=== PATIENT | female | born 1945 | race Caucasian/White ===

== ENCOUNTER 2017-01-13 01:14 | Inpatient (IN) ==
[2017-01-13] MEDS ORDERED: Aspirin 81 MG TAB.CHEW PO ONE (01:24)
[2017-01-13] MEDS ORDERED: *HR* Heparin 5,000 UNIT/ML VIAL IVP PRN ×2 (01:24)
[2017-01-13] MEDS ORDERED: *HR* Heparin 5,000 UNIT/ML VIAL IVP ONE (01:24)
[2017-01-13] MEDS ORDERED: Heparin 25,000 UNIT/500 ML D5W 25,000 UNIT/500 ML MLS IVC SCH (01:30)
[2017-01-13] MEDS: Nitroglycerin 0.4 MG TAB.SUBL SL ONE ×3 (01:39→01:57)
--- NOTE | 2017-01-13 01:39 | Emergency Department Note ---
Disposition Clinical Impression: STEMI (ST elevation myocardial infarction) Qualifiers: Involved coronary artery: unspecified coronary artery Qualified Code(s): I21.3 - ST elevation (STEMI) myocardial infarction of unspecified site Disposition: Admitted As Inpatient Condition: Critical Chest Pain HPI - General Chief Complaint: ED Chest Pain Stated Complaint: chest pain Time Seen by Provider: 01/13/17 01:24 Source: patient Mode of arrival: ambulatory Limitations: no limitations Vital Signs Reviewed: Yes Nursing Notes Reviewed: Yes - History of Present Illness HPI Narrative: Patient presents for evaluation of chest pain. Patient's chest pain started in our prior to arrival. Substernal in nature. Patient describes it as a "pain". Patient has not had similar pain in the past. Patient states she has diabetes but no previous cardiac history. EKG shows ST elevations in lead 3 and aVF. Diffuse depressions in 1 aVL V1 and V2 V3 V4 V5 and V6. No previous EKG for comparison. STEMI alert called. Deflector Operator activated. Severity scale (1-10): 10 - Related Data Home Medications Medication Instructions Recorded Confirmed Atorvastatin 01/10/17 Allergies Allergy/AdvReac Type Severity Reaction Status Date / Time codeine Allergy Rash Verified 01/10/17 12:48 gabapentin Allergy Anaphylaxis Verified 01/10/17 12:48 Review of Systems: CONSTITUTIONAL: No weight loss, fever, chills, weakness or fatigue. HEENT: Eyes: No visual changes. Ears, Nose, Throat: No hearing loss, difficulty talking or unable to swallow. SKIN: No rash or itching. CARDIOVASCULAR: chest pain RESPIRATORY: No shortness of breath, cough or sputum. GASTROINTESTINAL: No anorexia, nausea, vomiting or diarrhea. No abdominal pain or blood. GENITOURINARY: No burning on urination or hematuria. NEUROLOGICAL: No headache, dizziness, syncope, paralysis, ataxia, numbness or tingling in the extremities. No change in bowel or bladder control. MUSCULOSKELETAL: No muscle pain, back pain, joint pain or stiffness. 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 - Social History Smoking Status: 2nd Hand Smoke Exposure Alcohol use: Reports: none Drug use: Reports: none Physical Exam General appearance:uncomfortable 2/2 pain Eyes: anicteric sclerae, moist conjunctivae; PERRL HENT: Atraumatic; oropharynx clear with moist mucous membranes and no mucosal ulcerations Neck: Normal inspection; Trachea midline; FROM, supple Lungs: CTA, with normal respiratory effort and no intercostal retractions CV: RRR, no MRGs Abdomen: Soft, non-tender; no rebound or gaurding Extremities: No peripheral edema or extremity lymphadenopathy Skin: Normal temperature; no rash, ulcers or lesions Psych: Appropriate mood and affect Neuro: alert and oriented to person, place and time - General General appearance: alert Course - Reevaluation(s) Reevaluation #1: Patient's pain did not improve with initial nitroglycerin. Patient continues to be hypertensive. - Consultations Consultation #1: Dr. Yip was paged. After approximately 20 minutes they called his cell phone and he was able to call us back. Pt taken to mechanical shop laborer. Berlinta given. Vital Signs Temperature 97.2 F L 01/13/17 01:18 Pulse Rate 84 01/13/17 01:18 Respiratory Rate 20 01/13/17 01:18 Blood Pressure 190/90 01/13/17 01:18 O2 Sat by Pulse Oximetry 92 01/13/17 01:18 Temperature 97.2 F L 01/13/17 01:25 Pulse Rate 88 01/13/17 01:53 Respiratory Rate 20 01/13/17 02:22 Blood Pressure 174/79 01/13/17 02:22 O2 Sat by Pulse Oximetry 96 01/13/17 01:53 Oxygen Delivery Oxygen Delivery Nasal Cannula Chest Pain - Medical Records Medical records reviewed: Yes I reviewed the patient's medical records. - Lab Data Lab results reviewed: Yes I reviewed the patient's lab results. Result diagrams: 01/13/17 01:25 01/13/17 01:25 Lab Results 01/13/17 01/13/17 01/13/17 Range/Units 01:25 01:25 01:25 WBC 10.1 (4.3-11.1) K/mcL RBC 3.64 L (3.82-4.97) M/mcL Hgb 11.2 L (11.5-15.4) g/dL Hct 33.8 L (35.3-44.9) % MCV 92.9 (83.0-100.0) fL MCH 30.8 (28.0-33.3) pg MCHC 33.1 (31.6-35.5) g/dL RDW 12.2 (11.5-14.5) % Plt Count 283 (140-400) K/mcL MPV 10.4 (9.4-12.4) fL Immature Gran % 0.4 (0-4) % Seg Neutrophils % 42.2 % Lymphocytes % 45.9 % Monocytes % 8.3 % Eosinophils % 2.7 % Basophils % 0.5 % Neutrophils # 4.3 (1.6-8.9) K/mcL Lymphocytes # 4.6 (0.6-4.6) K/mcL Monocytes # 0.8 (0.0-1.3) K/mcL Eosinophils # 0.3 (0.0-0.6) K/mcL Basophils # 0.1 (0.0-0.2) K/mcL PT 11.3 (9.4-12.1) Seconds INR 1.1 APTT 27.1 (26.0-36.0) Seconds Sodium 137 (136-145) mEq/L Potassium 3.8 (3.5-4.5) mEq/L Chloride 102 (98-109) mEq/L Carbon Dioxide 23 (19-29) mEq/L BUN 19 (7-20) mg/dL Creatinine 1.09 (0.57-1.11) mg/dL Est GFR ( Amer) > 60 (> 60) Est GFR (Non-Af Amer) 50 L (> 60) BUN/Creatinine Ratio 17 (6-26) Glucose 157 H (70-99) mg/dL Calculated Osmolality 290 (280-300) Calcium 9.1 (8.6-10.8) mg/dL Troponin I (0-0.03) ng/mL 01/13/17 Range/Units 01:25 WBC (4.3-11.1) K/mcL RBC (3.82-4.97) M/mcL Hgb (11.5-15.4) g/dL Hct (35.3-44.9) % MCV (83.0-100.0) fL MCH (28.0-33.3) pg MCHC (31.6-35.5) g/dL RDW (11.5-14.5) % Plt Count (140-400) K/mcL MPV (9.4-12.4) fL Immature Gran % (0-4) % Seg Neutrophils % % Lymphocytes % % Monocytes % % Eosinophils % % Basophils % % Neutrophils # (1.6-8.9) K/mcL Lymphocytes # (0.6-4.6) K/mcL Monocytes # (0.0-1.3) K/mcL Eosinophils # (0.0-0.6) K/mcL Basophils # (0.0-0.2) K/mcL PT (9.4-12.1) Seconds INR APTT (26.0-36.0) Seconds Sodium (136-145) mEq/L Potassium (3.5-4.5) mEq/L Chloride (98-109) mEq/L Carbon Dioxide (19-29) mEq/L BUN (7-20) mg/dL Creatinine (0.57-1.11) mg/dL Est GFR ( Amer) (> 60) Est GFR (Non-Af Amer) (> 60) BUN/Creatinine Ratio (6-26) Glucose (70-99) mg/dL Calculated Osmolality (280-300) Calcium (8.6-10.8) mg/dL Troponin I 0.10 H* (0-0.03) ng/mL - Radiology Data Radiology results reviewed: Yes I reviewed the patient's radiology results. - EKG Data EKG attestation: Yes I reviewed and interpreted this EKG. EKG results narrative: EKG shows ST elevations in lead 3 and aVF. Depressions throughout the precordial leads as well as 1 and aVL. No previous EKG for comparison. Critical Care Time Critical Care Time: Yes Total Critical Care Time: 35 Attestation: Separate of other billable procedures Attestation Statement - Attestation Attestation: I examined this patient and my medical decision-making was reviewed with the Resident Physician, Dr. Thomas. I agree with the documented findings, disposition and treatment plan as described except to the extent set forth below. Patient is a 71-year-old white female type I diabetic who presents to the emergency department today with a one-hour history of substernal chest pain. Patient denies any shortness of breath, no diaphoresis, no nausea vomiting, no abdominal pain or back pain. Patient had an EKG from triage and was brought directly to me for evaluation due to concerns with EKG changes. Patient's initial EKG shows an inferior STEMI with reciprocal changes. I asked the patient be brought back directly to bed and a STEMI alert was called. I agree with patient's physical exam findings as documented. Patient was hypertensive on arrival. Patient was given aspirin nitroglycerin heparin and Brilinta following review of chest x-ray. Chest x-ray showed no acute process. We did not hear back from the publicity agent in time after 30 minutes from the time the STEMI was called. EKG was transferred to the automatic riveting machine operator and he agreed to come in for emergent heart catheter. Patient remained hemodynamically stable in the emergency department until transfer to the catheter lab.
[2017-01-13 01:41] LABS: Basophils # 0.1 K/mcL (0.0-0.2); Basophils % 0.5 %; Eosinophils # 0.3 K/mcL (0.0-0.6); Eosinophils % 2.7 %; Hematocrit 33.8 % (35.3-44.9); Hemoglobin 11.2 g/dL (11.5-15.4); Immature Granulocytes % 0.4 % (0-4); Lymphocytes # 4.6 K/mcL (0.6-4.6); Lymphocytes % 45.9 %; Mean Corpuscular HGB Conc 33.1 g/dL (31.6-35.5); Mean Corpuscular Hemoglobin 30.8 pg (28.0-33.3); Mean Corpuscular Volume 92.9 fL (83.0-100.0); Mean Platelet Volume 10.4 fL (9.4-12.4); Monocytes # 0.8 K/mcL (0.0-1.3); Monocytes % 8.3 %; Neutrophils # 4.3 K/mcL (1.6-8.9); Platelet Count 283 K/mcL (140-400); Red Blood Count 3.64 M/mcL (3.82-4.97); Red Cell Distribution Width 12.2 % (11.5-14.5); Segmented Neutrophils % 42.2 %
[2017-01-13 01:47] LABS: INR 1.1; Prothrombin Time 11.3 Seconds (9.4-12.1)
[2017-01-13] MEDS ORDERED: Verapamil 5 MG/2 ML VIAL ONE (01:47)
[2017-01-13] MEDS ORDERED: Heparin 1,000 UNITS/500 mL NS 500 ML ONE (01:48)
[2017-01-13] MEDS ORDERED: *HR* Heparin 10,000 UNIT/10 ML VIAL ONE (01:48)
[2017-01-13] MEDS ORDERED: Nitroglycerin 1,000 MCG/10 ML VIAL IV ONE (01:48)
[2017-01-13] MEDS ORDERED: 0.9 % Sodium Chloride 2,000 ML ONE (01:48)
[2017-01-13 01:50] LABS: Activated Partial Thrombo Time 27.1 Seconds (26.0-36.0)
[2017-01-13 01:53] LABS: BUN/Creatinine Ratio 17 (6-26); Blood Urea Nitrogen 19 mg/dL (7-20); Calcium 9.1 mg/dL (8.6-10.8); Carbon Dioxide 23 mEq/L (19-29); Chloride 102 mEq/L (98-109); Glucose 157 mg/dL (70-99); Osmolality,Calculated 290 (280-300); Potassium 3.8 mEq/L (3.5-4.5); Sodium 137 mEq/L (136-145); eGFR For African Americans > 60 (> 60); eGFR For Non-African Americans 50 (> 60)
[2017-01-13] MEDS ORDERED: *HR* Ticagrelor 90 MG TABLET PO ONE (01:57)
[2017-01-13] MEDS ORDERED: Nitroglycerin 25 MG/250 ML INFUS..BTL IVC SCH (02:00)
[2017-01-13] MEDS: *HR* Ticagrelor 90 MG TABLET ONE ×2 (02:01→02:20)
[2017-01-13] MEDS ORDERED: *HR* FentaNYL (PF) 100 MCG/2 ML VIAL ONE (02:18)
[2017-01-13] MEDS ORDERED: *HR* Midazolam HCl 2 MG/2 ML VIAL ONE (02:18)
[2017-01-13] MEDS ORDERED: Tirofiban 5 MG/100ML 5 MG/100 ML BAG IV ONE (02:48)
[2017-01-13] MEDS ORDERED: 0.9 % Sodium Chloride 1,000 ML ONE (03:19)
--- NOTE | 2017-01-13 03:19 | Pre-Sedation Evaluation ---
Pre-sedation evaluation - Pre-sedation checklist Date of procedure: 01/13/17 Procedure: [facility] Recent Vitals: Last Vital Signs Temp 97.2 F L 01/13/17 01:25 Pulse 88 01/13/17 01:53 Resp 20 01/13/17 02:22 BP 174/79 01/13/17 02:22 Pulse Ox 96 01/13/17 01:53 H&P (including ROS) documented in medical record: Yes Previous reaction to sedatives/anesthetics: No Dietary Status: NPO after Midnight Airway Assessment: Patient can open mouth completely, TMJ function normal Possible difficult airway: No ASA Classification *see protocol: CLASS II-Mild systemic disease, E-EMERGENCY- Add to any of the above to indicate emergent Plan of Care: Pt appropriate candidate for procedure/moderate/conscious sedation , Risks/benefits of procedure/sedation discussed w/ patient/family
[2017-01-13] MEDS ORDERED: *HR* OxyCODONE/APAP 5/325 TABLET PO PRN (03:22)
[2017-01-13] MEDS ORDERED: *HR* HYDROcodone/Acet 5/325 mg TABLET PO PRN (03:22)
--- NOTE | 2017-01-13 03:26 | Cardiology History & Physical ---
Date of Encounter: 01/14/17 Time of Encounter: 02:00 Assessment and Plan (1) STEMI (ST elevation myocardial infarction) Current Visit: Yes Status: Acute On initial presentation: ongoing symptoms with inferior current of injury. Emergent LHC, EF assessment. Aspirin, brilinta, heparin given. Labs reviewed/ ekg interpreted. Guarded prognosis. Critical care time >1 hour Post PCI: S/p emergent LHC and PCI to her ostial and mid RCA. There is a 70-80% stenosis in her mLAD. Staged PCI is recommended. this is being set-up by Dr. Yip for early next week. There was no complication from her procedure. Importance of DAPT with asa and brilinta uninterrupted for minimum of one year reviewed with patient and he voiced understanding. Continue statin and bb. No complication with right femoral access site. Phase one cardiac rehab ordered. Imdur added for chest pain. Now chest pain free. Patient reported to have mild chest discomfort last night. If she has recurrent chest pain consider PCI of the LAD prior to discharge. TTE shows preserved EF. No significant valvular disease. Qualifiers: Involved coronary artery: right coronary artery Qualified Code(s): I21.11 - ST elevation (STEMI) myocardial infarction involving right coronary artery (2) Hypertension Current Visit: Yes Status: Acute B/p uncontrolled. B/p 200/100 on admit. Now improved. Continue lisinopril and carvedilol. low sodium diet. Qualifiers: Hypertension type: essential hypertension Qualified Code(s): I10 - Essential (primary) hypertension (3) Diabetes mellitus, type II Current Visit: Yes Status: Acute NIDDM. On SSI while here. Restart glyburide. Qualifiers: Diabetes mellitus complication status: without complication Diabetes mellitus welfare interviewer insulin use: without welfare interviewer use Qualified Code(s): E11.9 - Type 2 diabetes mellitus without complications History of Present Illness HPI: Ms. Valverde is a 71 year old diabetic female presents with 1 hour history of severe retrosternal chest pain without radiation associated with mild dyspnea. It was minimally relieved with NTG/aspirin. She reported to ED with inferior STEMI and screedman/laborer was activated. Past Med Surg Social Fam HX - Past Medical History Medical history: non-contributory Psychiatric history: anxiety - Past Surgical History Surgical History: no surgical history - Social History Smoking Status: 2nd Hand Smoke Exposure Smokeless Tobacco Status: No Alcohol use: none Drug use: none Medications and Allergies Insulin Glargine,Hum.rec.anlog [Lantus Solostar] 5 - 10 unit SQ HS 01/13/17 [ History] Oxycodone HCl/Acetaminophen [Endocet 10-325 mg Tablet] 1 tab PO Q8H PRN [History] glyBURIDE [GlyBURIDE] 5 mg PO DAILY 01/13/17 [History] 3 Allergy/AdvReac Type Severity Reaction Status Date / Time codeine Allergy Rash Verified 01/10/17 12:48 gabapentin Allergy Anaphylaxis Verified 01/10/17 12:48 All Systems Review: A 10-system review of systems was performed and is negative for pertinent findings except as documented above in the HPI. - Constitutional Constitutional: no chills, no fever(s) - EENT Eyes: no blurred vision, no loss of vision Nose, mouth and throat: no bleeding gums, no epistaxis - Cardiovascular Cardiovascular: chest pain at rest, chest pain with exertion - Respiratory Respiratory: dyspnea, no hemoptysis - Gastrointestinal Gastrointestinal: no hematemesis, no hematochezia - Genitourinary Genitourinary: no hematuria, no nocturia - Musculoskeletal Musculoskeletal: no arthralgias, no back pain - Integumentary Integumentary: no erythema, no unusual bruising - Neurological Neurological: no syncope, no tingling - Psychiatric Psychiatric: no hallucinations, no panic attacks - Hematological/Lymphatic Hematologic/Lymphatic: no easy bleeding, no easy bruising Physical Examination General: Conversant, Other (distressed) HEENT: Atraumatic, Normocephaly Neck: No JVD Cardiac: Reg Rate and Rhythm Lungs: Normal Breath Sounds Neuro: Alert and responsive Abdomen: Soft Skin: No rashes noted on visualized skin Musculoskeletal: No Chest Wall Tenderness Extremities: No Edema Results 01/14/17 08:12 01/14/17 08:12 - EKG Interpretation EKG results cardiology: personally reviewed, sinus rhythm (inferior current of injury)
[2017-01-13] MEDS ORDERED: Tirofiban 12.5 MG/250ML 12.5 MG/250 ML BAG IVC SCH (03:30)
[2017-01-13] MEDS ORDERED: D5% in Water 1,000 ML IVC PRN (03:34)
[2017-01-13] MEDS ORDERED: *HR* Dextrose 50 % in Water (Syg) 50 ML SYRINGE IVP PRN (03:34)
[2017-01-13] MEDS ORDERED: Dextrose Gel 15 GM PO PRN ×2 (03:34)
--- NOTE | 2017-01-13 03:51 | Invasive Diagnostic Lab Proc ---
Name: Bella Valverde Date of Study: 01/13/2017 Date: 1945 Ht: 64.2in Medical Record#: [id number] Age: 71 Wt: 143.96lb Gender: Female BSA: 1.7 Order #: [id number] BMI: 24.58 Physicians Procedure Physician: Wallace Yip MD, [facility] Referring MD: Referring MD: Staff Name Position Time In Joshua Sparks RN Face Worker 02:14 AM Kelsy Kohli RN Monitor 02:15 AM Eduin Newby RT (R) Scrub 02:15 AM Indications Indication STEMI Procedures Performed Procedure L HRT ARTERY/VENTRICLE ANGIO PRQ CARD REVASC IA 1 VSL Pre-Procedure Checklist Informed consent is complete signed and on chart. H&P is on chart. ID band is on and ID verified with patient. Patient NPO for procedure The procedure was described for the patient and questions were answered. Blood Pressure: 223/88 ECG is on chart. Rhythm: NSR w/ st elevation Plan of Care Patient will tolerate the procedure without complications. Adequate level of comfort will be maintained. Hemodynamics will remain stable Patient will recover from procedure without complications. Respiratory function will be maintained. Cardiac rhythm will remain stable. Patient temperature will be maintained. Patient and/or family have verbalized understanding of the procedure. Patient Education Chief Complaint/Reason for Test: Cardiac Cath Developmental Category: Geriatric (65+ years) Developmentally Appropriate for Age: Yes Learning Barriers: None Education Needs: Procedure Education Method: Verbal Information Taught: Cardiac Cath Educational Evaluation: Able to repeat information Intravenous Access Time IV Size Location DC'd Fluid/Drip Rate Units RN 02:01 AM 20g 1 1/4" Patent On Arrival Lt Hand 02:01 AM 18g 1 1/4" Patent On Arrival Rt Antecubital 0.9NaCl 25 ml/hr oJshua Sparks RN Allergies codeine gabapentin Vital Signs Time BP (mmHg) HR (bpm) O2 Sat. RR (bpm) LOC 02:19 AM / % 5 = Fully awake and oriented or at pre-proc level 02:19 AM / % 4 = Oriented but drowsy 02:34 AM / % 4 = Oriented but drowsy 02:50 AM / % 4 = Oriented but drowsy 02:12 AM 223 / 88 104 100 % 18 02:16 AM 228 / 86 87 99 % 14 02:21 AM 188 / 71 92 98 % 10 02:26 AM 180 / 62 83 98 % 11 02:31 AM 145 / 66 82 95 % 12 02:37 AM 166 / 61 76 98 % 10 02:41 AM 169 / 58 73 98 % 10 02:46 AM 155 / 78 77 98 % 13 02:51 AM 154 / 60 72 95 % 12 02:56 AM 150 / 53 66 98 % 10 03:01 AM 149 / 58 67 99 % 11 03:06 AM 156 / 60 69 100 % 11 03:09 AM 162 / 66 72 100 % 12 03:11 AM 164 / 66 73 100 % 15 03:16 AM 153 / 57 76 100 % 9 03:05 AM / % 4 = Oriented but drowsy Procedural Medications Time Medication Dose Units Method Given By 02:17 AM Lidocaine 2% 0.5 ml Subcutaneous Wallace Yip MD, FACC 02:19 AM Oxygen 2 L/min nasal cannula Joshua Sparks RN 02:19 AM Versed 2 mg Intravenous Johsua Sparks RN 02:19 AM Fentanyl 25 mcg Intravenous Joshua Sparks RN 02:20 AM Nitroglycerin 200 mcg Intraarterial Wallace Yip MD 02:20 AM Verapamil 2.5 mg Intraarterial Wallace Yip MD, FACC 02:26 AM Lidocaine 2% 19.5 ml Subcutaneous Wallace Yip MD, FACC 02:07 AM Nitroglycerin 5 mcg/min Intravenous 02:15 AM Nitroglycerin 10 mcg/min Intravenous Joshua Sparks RN 02:46 AM Heparin 3000 units Intravenous Joshua Sparks RN 02:48 AM Aggrastat Bolus: 33 ml Intravenous Joshua Sparks RN 02:48 AM Aggrastat 5mg/100ml 6 ml/hr Intravenous Joshua Sparks RN 03:13 AM Hydralazine 10 mg Intravenous Joshua Sparks RN ASA Classification: CLASS II- Mild systemic disease (i.e. well-controlled diabetes, hypertension, asthma, cigarette smoking) Emergent Procedure: ASA score is assumed Alexis Score Preprocedure Postprocedure Activity 2- Moves 4 extremities sustained head lift Activity 2- Moves 4 extremities sustained head lift Circulation 2- SBP +/= 20 points of pre-anesthetic level Circulation 2- SBP +/= 20 points of pre-anesthetic level Consciousness 2- Awake and alert oriented x 3 Consciousness 2- Awake and alert oriented x 3 O2 Saturation 2- Able to maintain O2 satruation of 92% on room air O2 Saturation 2- Able to maintain O2 satruation of 92% on room air Respiratory 2- Able to deep breathe and cough well Respiratory 2- Able to deep breathe and cough well Total Score 10 Total Score 10 Contrast Agent: Isovue Diagnostic Contrast: 153 ml Total Contrast: 153 ml Fluoro Dose: 1005 mGy Activated Clotting Time Time Seconds to Clot 02:46 AM 187 03:22 AM 266 Procedure Log Time Note Enter By 02:07 AM Pt arrived to paving and surfacing labourer 2 at 02:07 scoates 02:07 AM Patient arrived at 02:07 with Nitroglycerin Intravenous drip @ 5 mcg/min scoates 02:10 AM CathStat 02:10 AM Vitals capture started with the following parameters, Patient=Adult, Interval=5 min, Initial Gdlfjrdv=772 mmHg, Deflation Rate=5 mmHg, Cuff placed on Right Arm 02:12 AM EL=319 bpm, XNWE=291/88 mmhg, VeP1=626.0 %, Resp=18 B/min 02:14 AM Case Delayed No scoates 02:14 AM Hair removed from procedure site in emergency department using clippers. Right wrist and rt groin prepped with Chloraprep by Eduin Newby (R), safety strap applied then patient was draped. Skin intact. scoates 02:14 AM ASA Class CLASS II- Mild systemic disease (i.e. well-controlled diabetes, hypertension, asthma, cigarette smoking) scoates 02:14 AM Patient charges- Angio tray pack, Navilyst 3mm J, Pulse Oximetry and ACIST tubing and transducer scoates 02:15 AM Time: 02:15 Nitroglycerin 10 mcg/min Intravenous Given by Joshua Sparks RN scoates 02:15 AM Joshua Sparks RN Position: Face Worker Time in: 02:14 scoates 02:15 AM Kelsy Kohli RN Position: Monitor Time in: 02:15 scoates 02:15 AM Eduin Newby (R) Position: Scrub Time in: 02:15 scoates 02:15 AM Physician arrived 02:15 scoates 02:15 AM Meet and greet completed scoates 02:15 AM Procedure start 02:15 scoates 02:16 AM HR=87 bpm, IWAR=541/86 mmhg, SpO2=99.0 %, Resp=14 B/min, Comment=sr w/ st elevation 02:16 AM Clinical Presentation: STEMI or equivalent scoates 02:16 AM Time out performed according to hospital policy scoates 02:17 AM Time: 02:17 0.5 ml Lidocaine 2% to right radial Subcutaneous Given by Wallace Yip MD, [facility] scoates 02:18 AM Recorded ECG: HR=91 Condition=Condition 1 02:18 AM Pressure channel 1 zeroed. 02:18 AM Recorded Pressure: Ao, HR=98, Condition=Condition 1 (Aorta) Ao 0/0/0 02:19 AM Time: 02:19 Patient comfortable and pain free: No, pt has 10/10 chest pain scoates 02:19 AM Time: 02:19LOC: 5 = Fully awake and oriented or at pre-proc level scoates 02:19 AM Time: 02:19 Oxygen on at 2 L/min per nasal cannula by Joshua Sparks RN scoates 02:19 AM Time: 02:19 Versed 2 mg Intravenous Given by Joshua Sparks RN scoates 02:20 AM Time: 02:19 Fentanyl 25 mcg Intravenous Given by Joshua Sparks RN scoates 02:20 AM Access obtained by percutaneous puncture. 6Fr 11cm Terumo [place] sheath placed in right Radial artery. [id number] scoates 02:20 AM Time: 02:20 Patient given , 200 mcg Nitroglycerin, and 2.5 mg Verapamil Intraarterial by Wallace Yip MD, [facility] scoates 02:20 AM 6Fr IM Runway guide catheter was used to cannulate the PCI vessel successfully. reused? No scoates 02:21 AM HR=92 bpm, EIFI=654/71 mmhg, SpO2=98.0 %, Resp=10 B/min, Comment=sr 02:22 AM Guide catheter removed intact. scoates 02:22 AM 6Fr AR1 Runway guide catheter was used to cannulate the PCI vessel successfully. reused? No scoates 02:24 AM Recorded Pressure: Ao, HR=85, Condition=Condition 1 (Aorta) Ao 153/59/98 02:25 AM RCA angiography performed in multiple views. scoates 02:25 AM .014 [place] 190cm guide wire across target lesion- successful. reused? No scoates 02:26 AM HR=83 bpm, MPVW=830/62 mmhg, SpO2=98.0 %, Resp=11 B/min, Comment=sr 02:26 AM wire and guide wire removed intact scoates 02:27 AM Pressure channel 1 zeroed. 02:27 AM Patient is noted to have difficult anatomy, per . Will access groin now scoates 02: AM Time: 02: 19.5 ml Lidocaine 2% to right groin Subcutaneous Given by Wallace Yip MD, [facility] scoates 02:28 AM Access obtained by percutaneous puncture. 6Fr 10cm Terumo [place] sheath placed in right Femoral artery. [id number] scoates 02:29 AM 6Fr KR4H Runway guide catheter was used to cannulate the PCI vessel successfully. reused? No scoates 02:31 AM Recorded Pressure: Ao, HR=80, Condition=Condition 1 (Aorta) Ao 170/73/112 02:31 AM HR=82 bpm, MPIQ=293/66 mmhg, SpO2=95.0 %, Resp=12 B/min, Comment=sr 02:32 AM Recorded Pressure: Ao, HR=80, Condition=Condition 1 (Aorta) Ao 15/14/14 02:32 AM Patient having wrist pain at this time scoates 02:33 AM Guide catheter removed intact. scoates 02:33 AM Recorded Pressure: Ao, HR=72, Condition=Condition 1 (Aorta) Ao 143/78/106 02:33 AM 5Fr FL 4 catheter inserted over the wire [facility] scoates 02:33 AM LCA angiography performed in multiple views. scoates 02:34 AM Recorded Pressure: Ao, HR=72, Condition=Condition 1 (Aorta) Ao 142/77/106 02:34 AM Time: 02:19LOC: 4 = Oriented but drowsy scoates 02:34 AM Time: 02:19 Patient comfortable and pain free: No patient has chest pain and rt wrist pain scoates 02:35 AM Catheter removed scoates 02:35 AM 6Fr JR 4 Cordis guide catheter was used to cannulate the PCI vessel successfully. reused? No scoates 02:36 AM [place] wire reinserted scoates 02:37 AM HR=76 bpm, IOUL=953/61 mmhg, SpO2=98.0 %, Resp=10 B/min, Comment=sr 02:40 AM unable to engage artery scoates 02:40 AM marvel wire removed intact scoates 02:40 AM Guide catheter removed intact. scoates 02:40 AM 6Fr 3DRC Silex Bright-Tip guide catheter was used to cannulate the PCI vessel successfully. reused? No scoates 02:41 AM HR=73 bpm, ZUXC=279/58 mmhg, SpO2=98.0 %, Resp=10 B/min, Comment=sr 02:43 AM 2.0 mm x 12 mm Emerge Monorail balloon across target lesion- successful. reused? No scoates 02:44 AM Recorded Pressure: Ao, HR=74, Condition=Condition 1 (Aorta) Ao ?/?/? 02:45 AM Balloon inflated @ 8 ayden for 12 seconds scoates 02:45 AM Balloon inflated @ 10 ayden for 9 seconds scoates 02:45 AM Balloon inflated @ 10 ayden for 8 seconds scoates 02:46 AM Coronary Dominance: right scoates 02:46 AM Lesion found in Mid RCA. Pre Stenosis: 99 Pre SADA Flow: 2: partial flow/Perfusion scoates 02:46 AM Balloon catheter removed intact. scoates 02:46 AM At 02:46 the ACT was 187 seconds. scoates 02:46 AM HR=77 bpm, XYWJ=782/78 mmhg, SpO2=98.0 %, Resp=13 B/min 02:46 AM Time: 02:46 Heparin 3000 units Intravenous Given by Joshua Sparks RN scoates 02:48 AM 2.25mm x 28mm Synergy drug-eluting stent across target lesion- successful Lot #[id number] scoates 02:48 AM Recorded Pressure: Ao, HR=72, Condition=Condition 1 (Aorta) Ao 164/82/120 02:48 AM Stent deployed @ 11 ayden for 24 seconds scoates 02:48 AM Time: 02:48 Aggrastat Bolus: 33 ml Intravenous Given by Joshua Sparks RN Masters pump scoates 02:50 AM Time: 02:48 Aggrastat 5mg/100ml 6 ml/hr Intravenous Given by Joshua Sparks RN Masters pump scoates 02:50 AM Time: 02:34LOC: 4 = Oriented but drowsy scoates 02:51 AM Stent delivery system removed intact. scoates 02:51 AM 2.25 mm x 12mm NC Trek Rx balloon across target lesion- successful. reused? No scoates 02:51 AM HR=72 bpm, YSQB=612/60 mmhg, SpO2=95.0 %, Resp=12 B/min, Comment=sr 02:51 AM Balloon inflated @ 18 ayden for 15 seconds scoates 02:51 AM Time: 02:34 Patient comfortable and pain free: Yes, patient sleeping comfortably at this time scoates 02:52 AM Lesion found in Mid LAD. Pre Stenosis: 80 Pre SADA Flow: scoates 02:52 AM Lesion found in 1st Marginal. Pre Stenosis: 70 Pre SADA Flow: scoates 02:53 AM Balloon inflated @ 12 ayden for 15 seconds scoates 02:53 AM Balloon inflated @ 12 ayden for 13 seconds scoates 02:54 AM Recorded Pressure: Ao, HR=72, Condition=Condition 1 (Aorta) Ao 147/81/110 02:54 AM Balloon catheter removed intact. scoates 02:56 AM HR=66 bpm, FRWB=148/53 mmhg, SpO2=98.0 %, Resp=10 B/min, Comment=sr 02:56 AM 2.5mm x 24mm Synergy drug-eluting stent across target lesion- successful Lot #[id number] scoates 02:58 AM Stent deployed @ 14 ayden for 32 seconds scoates 02:59 AM Recorded Pressure: Ao, HR=67, Condition=Condition 1 (Aorta) Ao 157/71/106 03:00 AM Stent delivery system removed intact. scoates 03:01 AM Lesion found in Proximal RCA. Pre Stenosis: 80 Pre SADA Flow: 2: Partial Flow/Perfusion (> 1 but < 3) scoates 03:01 AM HR=67 bpm, SFKR=044/58 mmhg, SpO2=99.0 %, Resp=11 B/min, Comment=sr 03:02 AM 2.75 mm x 8mm NC Emerge balloon across target lesion- successful. reused? No scoates 03:02 AM Balloon inflated @ 18 ayden for 18 seconds scoates 03:02 AM Balloon inflated @ 18 ayden for 19 seconds scoates 03:04 AM Balloon catheter removed intact. scoates 03:05 AM 2.5x24 stent balloon reinserted scoates 03:05 AM Time: 02:50LOC: 4 = Oriented but drowsy scoates 03:06 AM HR=69 bpm, SSYV=119/60 mmhg, BbX6=359.0 %, Resp=11 B/min, Comment=sr 03:06 AM Stent balloon reinflated @ 11 ayden for 14 seconds scoates 03:07 AM Time: 02:51 Patient comfortable and pain free: Yes scoates 03:07 AM Stent delivery system removed intact. scoates 03:08 AM 3.0 mm x 12mm NC Trek Rx balloon across target lesion- successful. reused? No scoates 03:08 AM NIBP STAT measurement started. 03:09 AM HR=72 bpm, WUOS=381/66 mmhg, WwJ1=527.0 %, Resp=12 B/min, Comment=sr 03:09 AM Balloon inflated @ 12 ayden for 10 seconds scoates 03:10 AM Balloon inflated @ 16 ayden for 16 seconds scoates 03:11 AM Recorded Pressure: Ao, HR=68, Condition=Condition 1 (Aorta) Ao 149/80/110 03:11 AM Balloon catheter removed intact. scoates 03:11 AM Guide wire removed intact. scoates 03:11 AM HR=73 bpm, GNLA=402/66 mmhg, AuR4=257.0 %, Resp=15 B/min, Comment=sr 03:13 AM Time: 03:13 Hydralazine 10 mg Intravenous Given by Joshua Sparks RN scoates 03:13 AM Pressure channel 1 zeroed. 03:14 AM Recorded Pressure: LV, HR=74, Condition=Condition 1 (Left Ventricle) LV 159/16/18 03:14 AM Recorded Pressure: LV, Ao, HR=72, Condition=Condition 1 (Left Ventricle) LV 162/16/19, (Aorta) Ao 156/44/94 03:15 AM Catheter selectively placed in left ventricle scoates 03:15 AM guide catheter used to obtain LV pressures scoates 03:15 AM Guide catheter removed intact. scoates 03:15 AM Bolus angiogram of right Femoral complete: 4 ml/sec for a total of 7 mls scoates 03:16 AM HR=76 bpm, SZPK=690/57 mmhg, QwA7=724.0 %, Resp=9 B/min, Comment=sr 03:17 AM Procedure completed at 03:17 scoates 03:17 AM Arterial sheath pulled, Vasc Band closure device used and was Successful S/N. scoates 03:17 AM 13 ml air in Vasc Band. scoates 03:18 AM Sign out completed: Radiation Dose 1005 mGy Fluoro Time: 19.3 Isovue 370 - 200ml contrast 153 ml given by Wallace Yip MD, FACC. Complications: NoneCardiac Rehab Consult needed: YesConfirmed administered medications: Yes scoates 03:21 AM Time: 03:05LOC: 4 = Oriented but drowsy scoates 03:22 AM At 03:22 the ACT was 266 seconds. scoates 03:24 AM Estimated Blood Loss: less than 20cc scoates 03:25 AM Sheath left in place to be pulled on floor/holding area scoates 03:25 AM 03:25 Post Pulses Bilateral DP & PT 1+ scoates 03:25 AM Information taught Cardiac Cath, PCI, and Vasc Band scoates 03:25 AM Education needs Procedure, Plan of Care, and Responsibilities of Patient in Care scoates 03:25 AM Learning barriers :None scoates 03:25 AM Education Methods Verbal scoates 03:25 AM Education evaluation Able to repeat information scoates 03:25 AM Site status No bleeding/hematoma - Rt Groin as reported by Eduin Newby RT (R) at 03:25 scoates 03:26 AM Site status No bleeding/hematoma - Rt Wrist as reported by Eduin Newby RT (R) at 03:25 scoates 03:26 AM Opsite applied to rt groin scoates 03:26 AM Plavix, Effient or Brilinta given No, given in ER scoates 03:26 AM Delay to floor No scoates 03:26 AM Family placed in consult room. scoates 03:26 AM Complications: None scoates 03:26 AM Fluoro Time: 19.3 scoates 03:26 AM Isovue 370 - 200ml contrast 153 ml given by Wallace Yip MD, FACC. scoates 03:26 AM Radiation Dose 1005 mGy scoates 03:27 AM Post ECG SR with BBB scoates 03:29 AM Post Blood Pressure 143/58 scoates 03:36 AM Report given to Malorie PRESCOTT Pt taken to ICU Room #9. 03:36 scoates 03:37 AM Lesion found in Right PDA. Pre Stenosis: 50 Pre SADA Flow: scoates 03:37 AM Patient out of room: 03:37 scoates Complications Complication None None Hemodynamics Pressures Site Systolic/A Wave Diastolic/V Wave Mean AO 0 0 0 AO 153 59 98 AO 170 73 112 AO 15 14 14 AO 143 78 106 AO 142 77 106 AO AO 164 82 120 AO 147 81 110 AO 157 71 106 AO 149 80 110 LV 159 16 18 LV 162 16 19 AO 156 44 94 Post Procedure Information Blood Pressure: 143/58 mmHg Rhythm: SR with BBB Post procedural instructions were given Closure Device Time Device Success/Fail 01/13/2017 3:20:00 AM Mechanical Compression Successful 01/13/2017 3:29:00 AM Manual Compression Site Checks Time Location Status Staff Sheath In? Note 03:25 AM Rt Groin No bleeding/hematoma Eduin Newby RT (R) 03:25 AM Rt Wrist No bleeding/hematoma Eduin Newby RT (R) Pulses Time Site Pre-Procedure Post-Procedure Note 01/13/2017 2:07:00 AM Bilateral DP & PT 1+ 3:25:00 AM Bilateral DP & PT 1+ Updated by Kelsy Ng RN on 01/13/2017 3:40:43 AM electronically signed on 01/13/2017 3:41:09 AM with status of Final
[2017-01-13 05:03] LABS: Basophils % 0.2 %; Eosinophils % 0.3 %; Hemoglobin 9.5 g/dL (11.5-15.4); Immature Granulocytes % 0.6 % (0-4); Lymphocytes # 2.3 K/mcL (0.6-4.6); Lymphocytes % 18.8 %; Mean Corpuscular HGB Conc 32.8 g/dL (31.6-35.5); Mean Corpuscular Hemoglobin 30.7 pg (28.0-33.3); Mean Corpuscular Volume 93.9 fL (83.0-100.0); Mean Platelet Volume 10.7 fL (9.4-12.4); Monocytes # 0.7 K/mcL (0.0-1.3); Monocytes % 5.5 %; Neutrophils # 9.1 K/mcL (1.6-8.9); Platelet Count 241 K/mcL (140-400); Red Blood Count 3.09 M/mcL (3.82-4.97); Red Cell Distribution Width 12.1 % (11.5-14.5); Segmented Neutrophils % 74.6 %
[2017-01-13 05:18] LABS: BUN/Creatinine Ratio 17 (6-26); Blood Urea Nitrogen 18 mg/dL (7-20); Calcium 8.1 mg/dL (8.6-10.8); Carbon Dioxide 19 mEq/L (19-29); Chloride 104 mEq/L (98-109); Glucose 265 mg/dL (70-99); Osmolality,Calculated 291 (280-300); Potassium 4.5 mEq/L (3.5-4.5); Sodium 135 mEq/L (136-145); eGFR For African Americans > 60 (> 60); eGFR For Non-African Americans 52 (> 60)
[2017-01-13] MEDS: Ondansetron 4 MG/2 ML VIAL IVP PRN (05:58)
[2017-01-13] MEDS: *HR* Enoxaparin 40 MG/0.4 ML SYRINGE SQ SCH (09:49)
[2017-01-13] MEDS: Aspirin 81 MG TAB.CHEW PO SCH (09:53)
[2017-01-13] MEDS: *HR* Ticagrelor 90 MG TABLET PO SCH ×2 (09:53→21:10)
--- NOTE | 2017-01-13 10:16 | Cardiology Progress Note ---
Date of Encounter: 01/13/17 Time of Encounter: 10:20 Assessment and Plan (1) STEMI (ST elevation myocardial infarction) Current Visit: Yes Status: Acute S/p emergent LHC and PCI to her ostial and mid RCA. There is a 70-80% stenosis in her mLAD. Staged PCI is recommended. this is being set-up by Dr. Yip. There was no complication from her procedure. Importance of DAPT with asa and brilinta uninterrupted for minimum of one year reviewed with patient and he voiced understanding. Continue statin and bb. Right groin sheath pulled this morning. There was no complication with her right groin access site. Activity restrictions reviewed as stated above. Phase one cardiac rehab ordered. Will add imdur. Lisinopril for better blood pressure control. Check TTE. Likely step down from ICU in the morning. Qualifiers: Involved coronary artery: right coronary artery Qualified Code(s): I21.11 - ST elevation (STEMI) myocardial infarction involving right coronary artery (2) Hypertension Current Visit: Yes Status: Acute B/p uncontrolled. B/p 200/100 on admit. Now improved. Add lisinopril. Continue carvedilol. low sodium diet. Qualifiers: Hypertension type: essential hypertension Qualified Code(s): I10 - Essential (primary) hypertension (3) Diabetes mellitus, type II Current Visit: Yes Status: Acute NIDDM. On SSI while here. Restart glyburide. Qualifiers: Diabetes mellitus complication status: without complication Diabetes mellitus usp insulin use: without termite treater helper use Qualified Code(s): E11.9 - Type 2 diabetes mellitus without complications Discussion w patient/family: The assessment and plan as outlined above was discussed with the patient and/or family members who expressed understanding and agreement. All questions were answered. Thank you for involving us in the care of your patient. Please call with any questions. Subjective Principal diagnosis: Acute inferior AL Interval history: s/p acute inferior AL early this morning. Taken emergently to the cardiac cathetrization lab. She received PCI to her RCA. C/o mild intermittent chest pain since her procedure. B/p noted to be elevated at 176/98. Objective Vital Signs, Last 4 Hours Temp Pulse Pulse Resp BP Pulse Ox 01/13/17 10:11 84 84 12 159/72 98 01/13/17 10:04 86 87 12 175/72 98 01/13/17 10:01 15 178/84 97 01/13/17 10:00 95 01/13/17 09:59 95 28 171/73 96 01/13/17 09:56 90 01/13/17 08:07 96.6 F L 01/13/17 08:00 96.6 F L 86 12 142/81 99 01/13/17 06:45 78 01/13/17 06:31 76 General: Conversant, No Apparent Distress HEENT: Atraumatic, Normocephaly, Mucus Membranes Moist Neck: No JVD, Normal carotid pulses Cardiac: Reg Rate and Rhythm, Normal S1 and S2, No Murmur Lungs: Normal Breath Sounds, No Wheeze, Rales, Rhonchi Neuro: Alert and responsive, No focal deficits noted Abdomen: Soft, Non-Tender Skin: No rashes noted on visualized skin Musculoskeletal: No Chest Wall Tenderness Extremities: No Clubbing, No Cyanosis, No Edema, Normal Pulses, Other (Right groin soft without hematoma) Results 01/13/17 04:46 01/13/17 04:46 Lab Results 01/13/17 01/13/17 04:46 04:46 WBC 12.2 H Hgb 9.5 L D Hct 29.0 L Plt Count 241 Sodium 135 L Potassium 4.5 Chloride 104 Carbon Dioxide 19 BUN 18 Creatinine 1.04 Glucose 265 H Calcium 8.1 L - EKG Interpretation EKG results cardiology: personally reviewed (Initial EKG shows LBBB with ST elevation in the inferior leads and ST depression in the anterior lateral leads. F/u EKG shows resolution of changes.) Consult Discharge Plan - Plan Referrals: Justin Burroughs MD [Primary Care Provider] -
[2017-01-13] MEDS: Insulin LISPRO 300 UNITS/3 ML VIAL SQ SCH ×3 (10:35→16:16)
[2017-01-13] MEDS ORDERED: Nitroglycerin 0.4 MG TAB.SUBL SL PRN (11:48)
[2017-01-13 12:07] LABS: Hematocrit 29.1 % (35.3-44.9); Hemoglobin 9.7 g/dL (11.5-15.4)
[2017-01-13] MEDS: Isosorbide MONOnitrate (24 HR) 30 MG TAB.ER.24H PO SCH (12:29)
[2017-01-13] MEDS: *HR* GlyBURIDE 5 MG TABLET PO SCH (16:16)
--- NOTE | 2017-01-13 18:08 | Electrocardiograph Report ---
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
--- NOTE | 2017-01-13 18:08 | Electrocardiograph Report ---
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
--- NOTE | 2017-01-13 18:17 | Electrocardiograph Report ---
[place] [address] Test Date: 2017-01-13 Pat Name: Bella Valverde Department: 109 Room: [facility] Gender: F Him Specialist: JEdJ : 1945 Requested By: Wallace Yip Order Number: [id number] Reading MD: Wallace Yip MD Measurements Intervals [place] Rate: 65 P: 61 [place]: 164 QRS: 1 QRSD: 147 T: 195 QT: 514 QTc: 525 Interpretive Statements SINUS RHYTHM LEFT BUNDLE BRANCH BLOCK Electronically Signed On 01-13-2017 18:15:53 EST by Wallace Yip MD
--- NOTE | 2017-01-13 18:18 | Electrocardiograph Report ---
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
[2017-01-13] MEDS ORDERED: Insulin LISPRO 300 UNITS/3 ML VIAL SQ SCH (21:00)
[2017-01-14] MEDS: *HR* Enoxaparin 40 MG/0.4 ML SYRINGE SQ SCH (06:04)
[2017-01-14] MEDS: Ondansetron 4 MG/2 ML VIAL IVP PRN (06:12)
[2017-01-14] MEDS: Isosorbide MONOnitrate (24 HR) 30 MG TAB.ER.24H PO SCH (08:14)
[2017-01-14] MEDS: *HR* Ticagrelor 90 MG TABLET PO SCH ×2 (08:14→20:59)
[2017-01-14] MEDS: Aspirin 81 MG TAB.CHEW PO SCH (08:14)
[2017-01-14] MEDS: *HR* GlyBURIDE 5 MG TABLET PO SCH (08:14)
[2017-01-14] MEDS: Insulin LISPRO 300 UNITS/3 ML VIAL SQ SCH ×4 (08:15→20:59)
[2017-01-14 08:57] LABS: Basophils % 0.2 %; Eosinophils # 0.1 K/mcL (0.0-0.6); Eosinophils % 0.6 %; Hematocrit 27.7 % (35.3-44.9); Hemoglobin 8.9 g/dL (11.5-15.4); Immature Granulocytes % 0.6 % (0-4); Lymphocytes # 2.3 K/mcL (0.6-4.6); Mean Corpuscular HGB Conc 32.1 g/dL (31.6-35.5); Mean Corpuscular Hemoglobin 31.9 pg (28.0-33.3); Mean Corpuscular Volume 99.3 fL (83.0-100.0); Mean Platelet Volume 11.1 fL (9.4-12.4); Monocytes % 7.9 %; Neutrophils # 9.2 K/mcL (1.6-8.9); Nucleated Red Blood Cells 0.3 /100 WBC (0); Platelet Count 226 K/mcL (140-400); Red Blood Count 2.79 M/mcL (3.82-4.97); Red Cell Distribution Width 12.6 % (11.5-14.5); Segmented Neutrophils % 72.7 %
[2017-01-14] MEDS ORDERED: 0.9 % Sodium Chloride 1,000 ML IVC SCH ×2 (09:00→09:27)
[2017-01-14 09:13] LABS: BUN/Creatinine Ratio 20 (6-26); Blood Urea Nitrogen 20 mg/dL (7-20); Calcium 8.3 mg/dL (8.6-10.8); Carbon Dioxide 25 mEq/L (19-29); Chloride 107 mEq/L (98-109); Glucose 75 mg/dL (70-99); Osmolality,Calculated 289 (280-300); Potassium 4.6 mEq/L (3.5-4.5); Sodium 139 mEq/L (136-145); eGFR For African Americans > 60 (> 60); eGFR For Non-African Americans 54 (> 60)
--- NOTE | 2017-01-14 09:35 | Cardiology Progress Note ---
Date of Encounter: 01/14/17 Time of Encounter: 09:33 Assessment and Plan (1) STEMI (ST elevation myocardial infarction) Current Visit: Yes Status: Acute S/p emergent LHC and PCI to her ostial and mid RCA. There is a 70-80% stenosis in her mLAD. Staged PCI is recommended. this is being set-up by Dr. Yip for early next week. There was no complication from her procedure. Importance of DAPT with asa and brilinta uninterrupted for minimum of one year reviewed with patient and he voiced understanding. Continue statin and bb. No complication with right femoral access site. Phase one cardiac rehab ordered. Imdur added for chest pain. Now chest pain free. Patient reported to have mild chest discomfort last night. If she has recurrent chest pain consider PCI of the LAD prior to discharge. TTE shows preserved EF. No significant valvular disease. Qualifiers: Involved coronary artery: right coronary artery Qualified Code(s): I21.11 - ST elevation (STEMI) myocardial infarction involving right coronary artery (2) Hypertension Current Visit: Yes Status: Acute B/p uncontrolled. B/p 200/100 on admit. Now improved. Continue lisinopril and carvedilol. low sodium diet. Qualifiers: Hypertension type: essential hypertension Qualified Code(s): I10 - Essential (primary) hypertension (3) Diabetes mellitus, type II Current Visit: Yes Status: Acute NIDDM. On SSI while here. Restart glyburide. Qualifiers: Diabetes mellitus complication status: without complication Diabetes mellitus brand designer insulin use: without brand designer use Qualified Code(s): E11.9 - Type 2 diabetes mellitus without complications (4) Anemia Current Visit: Yes Status: Acute Acute anemia noted. Hgb decreased from 9.7 to 8.9. Patient with alanis cath. Nurse reported patient may have been pulling on tubing and bright red blood noted. Blood decreased. No problem with right groin access. Denies back pain. Vital signs stable. Will hold DVT prophylaxis lovenox. I will order ambulation and EPCD for DVT prophylaxis. Qualifiers: Anemia type: unspecified type Qualified Code(s): D64.9 - Anemia, unspecified Discussion w patient/family: The assessment and plan as outlined above was discussed with the patient and/or family members who expressed understanding and agreement. All questions were answered. Thank you for involving us in the care of your patient. Please call with any questions. Subjective Principal diagnosis: Acute inferior MS Interval history: s/p acute inferior MS early this morning. Taken emergently to the cardiac cathetrization lab. She received PCI to her RCA. C/o mild intermittent chest pain since her procedure. B/p noted to be elevated at 176/98. Objective Vital Signs, Last 4 Hours Temp Pulse Resp BP Pulse Ox 01/14/17 09:00 79 19 144/63 94 01/14/17 08:00 77 18 166/60 95 01/14/17 07:30 99.6 F 78 19 106/72 96 01/14/17 06:00 80 20 158/57 97 General: Conversant, No Apparent Distress HEENT: Atraumatic, Normocephaly, Mucus Membranes Moist Neck: No JVD, Normal carotid pulses Cardiac: Reg Rate and Rhythm, Normal S1 and S2, No Murmur Lungs: Normal Breath Sounds, No Wheeze, Rales, Rhonchi Neuro: Alert and responsive, No focal deficits noted Abdomen: Soft, Non-Tender Skin: No rashes noted on visualized skin Musculoskeletal: No Chest Wall Tenderness Extremities: No Clubbing, No Cyanosis, No Edema, Normal Pulses Results 01/14/17 08:12 01/14/17 08:12 Lab Results 01/13/17 01/14/17 01/14/17 11:59 08:12 08:12 WBC 12.6 H Hgb 9.7 L 8.9 L Hct 29.1 L 27.7 L Plt Count 226 Sodium 139 Potassium 4.6 H Chloride 107 Carbon Dioxide 25 BUN 20 Creatinine 1.01 Glucose 75 Calcium 8.3 L - Imaging and Cardiology Echo: report reviewed Cardiac cath: report reviewed - EKG Interpretation EKG results cardiology: personally reviewed Consult Discharge Plan - Plan Referrals: Justin Burroughs MD [Primary Care Provider] -
[2017-01-14] MEDS ORDERED: D5% in Water 1,000 ML IVC PRN (10:03)
[2017-01-14] MEDS ORDERED: *HR* Dextrose 50 % in Water (Syg) 50 ML SYRINGE IVP PRN (10:03)
[2017-01-14] MEDS ORDERED: Dextrose Gel 15 GM PO PRN ×2 (10:03)
[2017-01-14] MEDS ORDERED: Nitroglycerin 0.4 MG TAB.SUBL SL PRN (10:03)
[2017-01-14] MEDS ORDERED: *HR* OxyCODONE/APAP 5/325 TABLET PO PRN (10:03)
[2017-01-14] MEDS ORDERED: *HR* HYDROcodone/Acet 5/325 mg TABLET PO PRN (10:03)
[2017-01-14 10:40] LABS: Bilirubin,Urine Moderate (Negative); Blood,Urine Large (Negative); Clarity,Urine Turbid (Clear); Color,Urine Brown (Yellow); Glucose,Urine (UA) Normal (Normal); Ketones,Urine Trace mg/dL (Negative); Leukocyte Esterase,Urine Small (Negative); Nitrite,Urine Negative (Negative); PH,Urine 5.5 pH Units (5.0-8.0); Protein,Urine >=300 mg/dL (Neg-Trace); Specific Gravity,Urine > 1.030 (1.010-1.025); Urobilinogen,Urine Normal (Normal)
[2017-01-14] MEDS: 0.9 % Sodium Chloride 1,000 ML IVC SCH ×2 (11:02→23:48)
[2017-01-14 12:40] LABS: Hematocrit 27.1 % (35.3-44.9); Hemoglobin 8.7 g/dL (11.5-15.4)
--- NOTE | 2017-01-14 18:33 | Electrocardiograph Report ---
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
--- NOTE | 2017-01-15 00:31 | Internal Medicine Consult Note ---
Date of Encounter: 01/15/17 Time of Encounter: 20:00 - Assessment and Plan (1) Fever Current Visit: Yes Status: Acute Assessment and plan: Patient has spark fever 101 this afternoon and low fever yesterday evening. Mild leukocytosis. - Patient has a runny nose in the last 2-3 days. Probably has a viral infection. - We will check flu antigen. - We will order chest x-ray to rule out pneumonia. - Abdominal exam is benign, mild nausea probably also due to viral infection. - Leukocytosis is also probably reactive by STEMI. - Patient has no clear signs of infection, will not start antibiotic. Will continue closely monitor patient. Qualifiers: Fever type: unspecified Qualified Code(s): R50.9 - Fever, unspecified (2) Abdominal pain Current Visit: Yes Status: Acute Assessment and plan: Abdominal exam is benign. Mild epigastric pain and nausea probably due to viral infection. Patient also has GERD. Agree with omeprazole 20 mg twice a day. Qualifiers: Abdominal location: epigastric Qualified Code(s): R10.13 - Epigastric pain (3) Hematuria Current Visit: Yes Status: Acute Assessment and plan: Mild gross hematuria. Patient is on DAPT and lovenox for DVT prophylaxis, gross hematuria probably tramautic due to Bruner insertion. Agree with hold Lovenox. Please EPCD for DVT prophylaxis. If hematuria persists, consider urology consult. Qualifiers: Hematuria type: gross Qualified Code(s): R31.0 - Gross hematuria (4) STEMI (ST elevation myocardial infarction) Current Visit: Yes Status: Acute Assessment and plan: Management per cardiology Qualifiers: Involved coronary artery: right coronary artery Qualified Code(s): I21.11 - ST elevation (STEMI) myocardial infarction involving right coronary artery (5) Hypertension Current Visit: Yes Status: Acute Assessment and plan: Management per cardiology Qualifiers: Hypertension type: essential hypertension Qualified Code(s): I10 - Essential (primary) hypertension (6) Diabetes mellitus, type II Current Visit: Yes Status: Acute Assessment and plan: Patient to use Lantus and glyburide at home. However, her glucose level is well controlled with current sliding scale and glyburide. Continue current regimen and follow-up glucose level. Qualifiers: Diabetes mellitus complication status: without complication Diabetes mellitus penitentiary insulin use: without penitentiary use Qualified Code(s): E11.9 - Type 2 diabetes mellitus without complications (7) Anemia Current Visit: Yes Status: Acute Assessment and plan: Pt has mild decreased hemoglobin level. Probably due to multiple factors. - Patient has received IV fluid, which can cause dilutional decrease of hemoglobin. - Patient has hematuria. - We will continue closely monitor vitals and hemoglobin level. Consider GI consult if hemoglobin further dropped. - Placed anemia workup in a.m. Qualifiers: Anemia type: unspecified type Qualified Code(s): D64.9 - Anemia, unspecified (8) DVT prophylaxis Current Visit: Yes Status: Acute Assessment and plan: On EPCD. Hold lovenox due to hematuria. Thank you for the consult. We will follow up. Internal Medicine - CN: HPI - Data of Consult Patient: new to practice Requesting Physician: Kit Fair DO - Consult Narrative Reason for consult: Fever, anemia, abd pain History of present illness: Ms. Valverde is a 71 year old female with a history of DM, hypertension, CKD and GERD, admitted for STEMI and had LHC on 01/13. Hospitalist consult called for fever, anemia and abdominal pain. I saw and examined the patient this evening. Patient denies headache. Patient said she has a runny nose for several days. No sore throat, no cough, mild nausea with epigastric pain which she sought that is due to her reflex. Patient denies vomiting, diarrhea, or urination symptoms. Patient has a Bruner catheter and had some hematuria in the Bruner bag. Patient denies coffee ground vomiting or black stool. He denies chest pain or shortness of breath at this point. Past Med Surg Social Fam HX - Past Medical History Medical history: non-contributory Psychiatric history: anxiety - Past Surgical History Surgical History: no surgical history - Social History Smoking Status: 2nd Hand Smoke Exposure Smokeless Tobacco Status: No Alcohol use: none Drug use: none - Family History Mother History Unknown: Yes All systems: reviewed and no additional remarkable complaints except as stated Internal Medicine - CN: Meds Insulin Glargine,Hum.rec.anlog [Lantus Solostar] 5 - 10 unit SQ HS 01/13/17 [ History] Oxycodone HCl/Acetaminophen [Endocet 10-325 mg Tablet] 1 tab PO Q8H PRN [History] glyBURIDE [GlyBURIDE] 5 mg PO DAILY 01/13/17 [History] 3 Allergy/AdvReac Type Severity Reaction Status Date / Time codeine Allergy Rash Verified 01/10/17 12:48 gabapentin Allergy Anaphylaxis Verified 01/10/17 12:48 Internal Medicine - CN: Exam - Constitutional Vitals: Temp Pulse Resp BP Pulse Ox 98.3 F 77 14 168/74 96 01/15/17 00:00 01/15/17 00:00 01/15/17 00:00 01/15/17 00:00 01/15/17 00:00 General appearance IM: Present: A&O X 3, no acute distress, answers questions appropriately - Head Head exam: Present: atraumatic, normal inspection - Eye Pupils: Present: PERRL - Expanded ENT Exam Throat exam: Present: normal inspection. Absent: tonsillar erythema, tonsillomegaly - Neck Neck exam general surgery: Present: full ROM, supple - Respiratory Respiratory exam: Present: CTAB. Absent: rales, rhonchi, wheezes - Cardiovascular Cardiovascular exam IM: Present: RRR, +S1, +S2 - GI/Abdominal GI/Abdominal exam IM: Present: normal bowel sounds, soft. Absent: guarding, hepatomegaly, rebound, tenderness - Expanded GI/Abdominal Exam GI/Abdominal exam: Present: Cash's sign (negative) - Extremities Exam Extremities exam IM: Absent: calf tenderness, pedal edema - Neurological Exam Neurological exam: Present: CN II-XII intact, no focal deficits - Skin Skin exam IM: Present: normal color, warm Internal Medicine - CN: Reslt - Labs CBC & Chem 7: 01/14/17 12:31 01/14/17 08:12 Labs: Short CBC 01/14/17 01/14/17 Range/Units 08:12 12:31 WBC 12.6 H (4.3-11.1) K/mcL Hgb 8.9 L 8.7 L (11.5-15.4) g/dL Hct 27.7 L 27.1 L (35.3-44.9) % Plt Count 226 (140-400) K/mcL Neutrophils # 9.2 H (1.6-8.9) K/mcL BMP 01/14/17 08:12 Sodium 139 Potassium 4.6 H Chloride 107 Carbon Dioxide 25 BUN 20 Creatinine 1.01 Glucose 75 Calcium 8.3 L Urine 01/14/17 Range/Units 10:00 Urine Color Brown (Yellow) Urine Clarity Turbid A (Clear) Urine pH 5.5 (5.0-8.0) pH Units Ur Specific [place] > 1.030 H (1.010-1.025) Urine Protein >=300 H (Neg-Trace) mg/dL Urine Glucose (UA) Normal (Normal) mg/dL - ABG Interpretation ABG results: PT/INR, D-dimer PT 11.3 Seconds (9.4-12.1) 01/13/17 01:25 - Impressions Impressions Chest X-Ray 01/14/17 20:40 IMPRESSION: Suspect small right effusion. Otherwise, no evidence of pneumonia or any other acute cardiopulmonary abnormality. D/ / Sami Robles / Sami Robles Interpreting Provider: Sami Robles Consult Discharge Plan - Plan Referrals: Justin Burroughs MD [Primary Care Provider] -
[2017-01-15 04:45] LABS: Basophils % 0.2 %; Eosinophils # 0.1 K/mcL (0.0-0.6); Hematocrit 25.6 % (35.3-44.9); Hemoglobin 8.1 g/dL (11.5-15.4); Lymphocytes # 2.3 K/mcL (0.6-4.6); Mean Corpuscular HGB Conc 31.6 g/dL (31.6-35.5); Mean Corpuscular Hemoglobin 30.3 pg (28.0-33.3); Mean Corpuscular Volume 95.9 fL (83.0-100.0); Mean Platelet Volume 10.9 fL (9.4-12.4); Monocytes % 9.3 %; Neutrophils # 6.9 K/mcL (1.6-8.9); Platelet Count 242 K/mcL (140-400); Red Blood Count 2.67 M/mcL (3.82-4.97); Red Cell Distribution Width 12.3 % (11.5-14.5); Segmented Neutrophils % 66.5 %
[2017-01-15] MEDS: Ondansetron 4 MG/2 ML VIAL IVP PRN (04:48)
[2017-01-15 04:57] LABS: % Iron Saturation 9 % (15-50); Iron 22 mcg/dL (50-170); Transferrin 168 mg/dL (180-382)
[2017-01-15 05:17] LABS: Ferritin 102 ng/ml (5-204)
[2017-01-15 05:31] LABS: Folate 15.9 ng/mL (7.0-31.4)
--- NOTE | 2017-01-15 08:35 | Internal Med Progress Note ---
<Halie Persaud - Last Filed: 01/15/17 10:30> Date of Encounter: 01/15/17 Time of Encounter: 08:21 - Assessment and plan (1) Acute blood loss anemia Current Visit: Yes Status: Acute Assessment and plan: Hemoglobin continues to drop. Probably due to multiple factors. Reports dark tarry stool last PM. Patient has received IV fluid, which can cause dilutional decrease of hemoglobin. Patient has hematuria. Anemia workup reveals iron deficiency anemia, consider iron supplementation upon discharge We will continue closely monitor vitals and hemoglobin level. NPO Started Protonix IV BID GI consulted (2) UTI (urinary tract infection) Current Visit: Yes Status: Acute Assessment and plan: UA reveals turbid appearance, gross hematuria, ketones and leukocyte estrase Urine culture reveals gram positive cocci Levaquin IV (Day 1) Qualifiers: Urinary tract infection type: acute cystitis Hematuria presence: with hematuria Qualified Code(s): N30.01 - Acute cystitis with hematuria (3) STEMI (ST elevation myocardial infarction) Current Visit: Yes Status: Acute Assessment and plan: Admitted for STEMI and had C on 01/13/17 Management per cardiology Patient is on DAPT and lovenox for DVT prophylaxis, hold Lovenox due to gross hematuria Qualifiers: Involved coronary artery: right coronary artery Qualified Code(s): I21.11 - ST elevation (STEMI) myocardial infarction involving right coronary artery (4) Abdominal pain Current Visit: Yes Status: Acute Assessment and plan: Patient remains afebrile since yesterday afternoon. She reports epigastric pain and continued nausea/ vomiting. Conitinue Zofran IV prn LFTs, Amylase, Lipase unremarkable NPO RUQ ultrasound pending Protonix 40mg IV BID Gentle hydration GI consulted for possible GI bleed Qualifiers: Abdominal location: epigastric Qualified Code(s): R10.13 - Epigastric pain (5) Hypertension Current Visit: Yes Status: Acute Assessment and plan: CXR reveals small right effusion, no evidence of pneumonia or any other acute cardiopulmonary abnormality. Lasix 40mg IV x1 given Continue to monitor Management per cardiology Qualifiers: Hypertension type: essential hypertension Qualified Code(s): I10 - Essential (primary) hypertension (6) Diabetes mellitus, type II Current Visit: Yes Status: Chronic Assessment and plan: Patient to use Lantus and glyburide at home. However, her glucose level is well controlled with current sliding scale and glyburide. Continue current regimen and follow-up glucose level. 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 Hold omeprazole, started on Protonix Qualifiers: Esophagitis presence: without esophagitis Qualified Code(s): K21.9 - Gastro -esophageal reflux disease without esophagitis (8) DVT prophylaxis Current Visit: Yes Status: Acute Assessment and plan: Patient is on DAPT and lovenox for DVT prophylaxis, hold Lovenox due to gross hematuria EPCD for DVT prophylaxis. - Subjective Interval history: Patient seen and examined. Patient remains afebrile since yesterday afternoon. She reports epigastric pain and continued nausea/ vomiting. Last BM was black tarry stool last PM. She continues to have hematuria in alanis catheter. - Constitutional Vitals: Temp Pulse Resp BP Pulse Ox 97.6 F 80 18 141/51 96 01/15/17 05:59 01/15/17 05:59 01/15/17 05:59 01/15/17 05:59 01/15/17 05:59 General appearance: Present: cooperative, mild distress, A&O X 3, pleasant, answers questions appropriately - Head Head exam: Present: atraumatic, normocephalic - Eye Eye exam: Present: PERRL, conjuntiva pink, sclera anicteric Pupils: Present: PERRL - ENT ENT exam: Present: mucous membranes dry, normal oropharynx Additional comments: poor dentition - Neck Neck exam general surgery: Present: supple, trachea midline. Absent: lymphadenopathy - Respiratory Respiratory exam: Present: decreased breath sounds, rales (bibasilar). Absent: accessory muscle use, respiratory distress, rhonchi, wheezes - Cardiovascular Cardiovascular exam: Present: RRR, +S1, +S2. Absent: diastolic murmur, gallop, rubs, systolic murmur - GI/Abdominal GI/Abdominal exam: Present: guarding (epigastric), normal bowel sounds, soft, tenderness (RUQ), no peritoneal signs. Absent: distended - Expanded GI/Abdominal Exam GI/Abdominal exam expanded: Present: Cash's sign - Additional comments: alanis with hematuria - Extremities Exam Extremities exam: Present: normal inspection (minimal ecchymosis at right groin cath site), warm, radial pulses palpable and symmetrical. Absent: calf tenderness, cyanotic, pedal edema - Neurological Exam Neurological exam: Present: CN II-XII intact, oriented X3, no focal deficits. Absent: pronater drift, facial droop, speech deficit - Psychiatric Psychiatric exam: Present: normal affect, normal mood - Skin Skin exam: Present: dry, intact Additional comments: minimal ecchymosis at right groin cath site Internal Medicine: Result - Labs CBC & Chem 7: 01/15/17 04:11 01/15/17 04:11 Labs: Short CBC 01/14/17 01/14/17 01/15/17 Range/Units 08:12 12:31 04:11 WBC 12.6 H 10.3 (4.3-11.1) K/mcL Hgb 8.9 L 8.7 L 8.1 L (11.5-15.4) g/dL Hct 27.7 L 27.1 L 25.6 L (35.3-44.9) % Plt Count 226 242 (140-400) K/mcL Neutrophils # 9.2 H 6.9 (1.6-8.9) K/mcL BMP 01/14/17 08:12 Sodium 139 Potassium 4.6 H Chloride 107 Carbon Dioxide 25 BUN 20 Creatinine 1.01 Glucose 75 Calcium 8.3 L Urine 01/14/17 Range/Units 10:00 Urine Color Brown (Yellow) Urine Clarity Turbid A (Clear) Urine pH 5.5 (5.0-8.0) pH Units Ur Specific [place] > 1.030 H (1.010-1.025) Urine Protein >=300 H (Neg-Trace) mg/dL Urine Glucose (UA) Normal (Normal) mg/dL - ABG Interpretation ABG results: PT/INR, D-dimer PT 11.3 Seconds (9.4-12.1) 01/13/17 01:25 - Pulse Oximetry Interpretation Digit-Finger Pulse Oximetry Readin (on ambient air) - Impressions Impressions Chest X-Ray 01/14/17 20:40 IMPRESSION: Suspect small right effusion. Otherwise, no evidence of pneumonia or any other acute cardiopulmonary abnormality. D/ / Sami Robles / Sami Robles Interpreting Provider: Sami Robles Consult Discharge Plan - Plan Referrals: Justin Burroughs MD [Primary Care Provider] - <KelbygraciaDale dale H - Last Filed: 01/15/17 10:41> Date of Encounter: 01/15/17 - Constitutional Vitals: Temp Pulse Resp BP Pulse Ox 97.6 F 80 18 141/51 96 01/15/17 05:59 01/15/17 05:59 01/15/17 05:59 01/15/17 05:59 01/15/17 05:59 Internal Medicine: Result - Labs CBC & Chem 7: 01/15/17 04:11 01/15/17 04:11 Labs: Short CBC 01/14/17 01/15/17 Range/Units 12:31 04:11 WBC 10.3 (4.3-11.1) K/mcL Hgb 8.7 L 8.1 L (11.5-15.4) g/dL Hct 27.1 L 25.6 L (35.3-44.9) % Plt Count 242 (140-400) K/mcL Neutrophils # 6.9 (1.6-8.9) K/mcL BMP 01/15/17 04:11 Sodium 137 Potassium 4.1 Chloride 108 Carbon Dioxide 21 BUN 19 Creatinine 0.90 Glucose 66 L Calcium 8.0 L Liver Function 01/15/17 Range/Units 04:11 Total Bilirubin 0.3 (0.2-1.2) mg/dL AST 29 (5-34) Units/L ALT 17 (0-55) Units/L Alkaline Phosphatase 87 (38-126) Units/L Albumin 2.6 L (3.5-5.0) g/dL Urine 01/14/17 Range/Units 10:00 Urine Color Brown (Yellow) Urine Clarity Turbid A (Clear) Urine pH 5.5 (5.0-8.0) pH Units Ur Specific [place] > 1.030 H (1.010-1.025) Urine Protein >=300 H (Neg-Trace) mg/dL Urine Glucose (UA) Normal (Normal) mg/dL - ABG Interpretation ABG results: PT/INR, D-dimer PT 12.0 Seconds (9.4-12.1) 01/15/17 08:46 - Impressions Impressions Chest X-Ray 01/14/17 20:40 IMPRESSION: Suspect small right effusion. Otherwise, no evidence of pneumonia or any other acute cardiopulmonary abnormality. D/ / Sami Robles / Sami Robles Interpreting Provider: Sami Robles - Attending Attestation Possible acute blood loss anemia from possible acute GI bleed upper versus lower Monitor CBC and consider transfusion, this problem may be exacerbated by Brilinta and aspirin GI recommendations are appreciated, continue Protonix IV and IV fluids Possible UTI, likely Staphylococcus, await culture to decide on future antibiotic therapy or to continue Levaquin I examined this patient and my medical decision-making was reviewed with the Resident Physician. I agree with the documented findings, disposition and treatment plan as described except to the extent set forth below.
[2017-01-15] MEDS ORDERED: Furosemide 40 MG/4 ML VIAL IVP ONE (08:38)
[2017-01-15 08:55] LABS: Alanine Aminotransferase 17 Units/L (0-55); Albumin 2.6 g/dL (3.5-5.0); Albumin/Globulin Ratio 0.9 (1.1-2.2); Alkaline Phosphatase 87 Units/L (38-126); Amylase 55 Units/L (25-125); Aspartate Amino Transferase 29 Units/L (5-34); BUN/Creatinine Ratio 21 (6-26); Bilirubin,Total 0.3 mg/dL (0.2-1.2); Blood Urea Nitrogen 19 mg/dL (7-20); Carbon Dioxide 21 mEq/L (19-29); Chloride 108 mEq/L (98-109); Globulin 2.8 g/dL (2.4-3.5); Glucose 66 mg/dL (70-99); Lipase 18 Units/L (8-78); Osmolality,Calculated 284 (280-300); Potassium 4.1 mEq/L (3.5-4.5); Sodium 137 mEq/L (136-145); Total Protein 5.4 g/dL (6.0-8.3); eGFR For African Americans > 60 (> 60); eGFR For Non-African Americans > 60 (> 60)
[2017-01-15] MEDS ORDERED: cefTRIAXone 1,000 MG in Water for inj. (sterile) 10 ML IVP SCH (09:00)
[2017-01-15] MEDS ORDERED: *HR* GlyBURIDE 5 MG TABLET PO SCH (09:00)
[2017-01-15] MEDS ORDERED: Sennosides/Docusate Sodium TABLET PO SCH (09:00)
[2017-01-15 09:02] LABS: INR 1.1
--- NOTE | 2017-01-15 09:45 | Cardiology Progress Note ---
Date of Encounter: 01/15/17 Time of Encounter: 08:20 Assessment and Plan (1) STEMI (ST elevation myocardial infarction) Current Visit: Yes Status: Acute S/p emergent LHC for STEMI having undergone PCI with DWAYNE to her ostial and mid RCA with residual 70-80% stenosis in her mLAD planned for a staged PCI as outpatient. No complication with right femoral access site. TTE shows preserved LVEF with no significant valvular disease. No new murmurs on exam today. Patient will require 12 months of DAPT. Continue Imdur, BB (will uptitrate for BP control) and statin. Qualifiers: Involved coronary artery: right coronary artery Qualified Code(s): I21.11 - ST elevation (STEMI) myocardial infarction involving right coronary artery (2) Anemia Current Visit: Yes Status: Acute Acute drop in blood count noted, slowly decreasing now at 8.1. Patient may have pulled at alanis tube. However, urinalysis grew GPCs - treated now with Abx. Large blood also noted in Urinalysis. Appreciate Hospitalist recommendations. Did speak with Resident Physician today expressing concern regarding patient's abdominal pain, nausea and lack of appetite. May need to consider upper endoscopy - GI service not available on the weekend. I asked them to discuss with on-call physician covering Endoscopy. PO PPI started yesterday. Otherwise, DVT prophylaxis was held. DAPT is continued given recent STEMI. Her groin is soft and nontender. Qualifiers: Anemia type: unspecified type Qualified Code(s): D64.9 - Anemia, unspecified Discussion w patient/family: The assessment and plan as outlined above was discussed with the patient and/or family members who expressed understanding and agreement. All questions were answered. Thank you for involving us in the care of your patient. Please call with any questions. Subjective Principal diagnosis: Acute inferior SC Interval history: Patient complains of abdominal pain, nausea and lack of appetite. She denies chest pain or palpitations. Objective Vital Signs, Last 4 Hours Temp Pulse Resp BP Pulse Ox 01/15/17 05:59 97.6 F 80 18 141/51 96 General: Conversant, No Apparent Distress HEENT: Other (mucus membranes somewhat dry) Neck: No JVD Cardiac: Reg Rate and Rhythm, Normal S1 and S2, No Murmur Lungs: Normal Breath Sounds, No Wheeze, Rales, Rhonchi Neuro: Alert and responsive, No focal deficits noted Abdomen: Soft, Other (tender in mid epigastric region) Extremities: Other (no significant LE edema, right groin soft and nontender, palpable distal pulses) Results 01/15/17 04:11 01/15/17 04:11 Lab Results 01/14/17 01/15/17 01/15/17 12:31 04:11 04:11 WBC 10.3 Hgb 8.7 L 8.1 L Hct 27.1 L 25.6 L Plt Count 242 INR Sodium 137 Potassium 4.1 Chloride 108 Carbon Dioxide 21 BUN 19 Creatinine 0.90 Glucose 66 L Calcium 8.0 L Total Bilirubin 0.3 AST 29 ALT 17 Alkaline Phosphatase 87 Amylase 55 Lipase 18 01/15/17 08:46 WBC Hgb Hct Plt Count INR 1.1 Sodium Potassium Chloride Carbon Dioxide BUN Creatinine Glucose Calcium Total Bilirubin AST ALT Alkaline Phosphatase Amylase Lipase - Imaging and Cardiology Chest Xray: report reviewed - EKG Interpretation EKG results cardiology: other (telemetry reviewed; average heart rate 80's, no dysrhythmia) Consult Discharge Plan - Plan Referrals: Justin Burroughs MD [Primary Care Provider] -
[2017-01-15] MEDS: Insulin LISPRO 300 UNITS/3 ML VIAL SQ SCH ×4 (10:06→20:14)
[2017-01-15] MEDS ORDERED: Pantoprazole 40 MG VIAL IVP SCH (10:30)
[2017-01-15] MEDS ORDERED: *HR* Midazolam HCl 5 MG/5 ML VIAL IVP ONE ×2 (11:47→11:53)
--- NOTE | 2017-01-15 11:47 | Internal Medicine Consult Note ---
Date of Encounter: 01/15/17 Time of Encounter: 11:30 - Assessment and Plan (1) Melena Current Visit: Yes Status: Acute Assessment and plan: Given the 2 g drop in hemoglobin, I am concerned after his GI bleeding, this could still be from a lower source. If the EGD is normal, my recommendation will be to pursue colonoscopy in the morning with bowel prep later today. I have discussed risks and benefits of endoscopy with her today she has consented. She currently is on PPI therapy, given the recent stent placement, we do not have electric this time to stop her antiplatelet agents. (2) Iron deficiency anemia Current Visit: Yes Status: Acute Qualifiers: Qualified Code(s): D50.9 - Iron deficiency anemia, unspecified (3) STEMI (ST elevation myocardial infarction) Current Visit: Yes Status: Acute Assessment and plan: She appears quite stable from her recent NE. Qualifiers: Involved coronary artery: right coronary artery Qualified Code(s): I21.11 - ST elevation (STEMI) myocardial infarction involving right coronary artery (4) Hypertension Current Visit: Yes Status: Chronic Qualifiers: Hypertension type: essential hypertension Qualified Code(s): I10 - Essential (primary) hypertension (5) Diabetes mellitus, type II Current Visit: Yes Status: Chronic Qualifiers: Diabetes mellitus complication status: without complication Diabetes mellitus retirement insulin use: without retirement use Qualified Code(s): E11.9 - Type 2 diabetes mellitus without complications (6) Abdominal pain Current Visit: Yes Status: Acute Assessment and plan: Differential to include peptic ulcer disease, gastritis, Qualifiers: Abdominal location: epigastric Qualified Code(s): R10.13 - Epigastric pain Internal Medicine - CN: HPI - Data of Consult Patient: known to practice within the last 3 years Consult date: 01/15/17 Requesting Physician: Kit Fair DO - Consult Narrative Reason for consult: Epigastric pain/Melena/Drop in HGB History of present illness: Ms. Valverde is a 71 year old female initially admitted to the cardiology service for acute ST elevation NE. This was approximately 2 days ago. She had uneventful stent being placed, although in the last 24 hours as developed some vague left upper quadrant/epigastric pain. There is also one dark bowel movement this morning, as well as a 2 g drop in hemoglobin since her admission. It does appear by the lab, that she has iron deficiency prior to the admission. 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 She's had no previous endoscopy for herself. No previous abdominal surgeries. Denies taking any anti- inflammatories, or having any bleeding at home. Past Med Surg Social Fam HX - Past Medical History Medical history: non-contributory Psychiatric history: anxiety - Past Surgical History Surgical History: no surgical history - Social History Smoking Status: 2nd Hand Smoke Exposure Smokeless Tobacco Status: No Alcohol use: none Drug use: none - Family History Mother History Unknown: Yes - Constitutional Constitutional: no chills, no excessive sweating, no fatigue, no weakness, no weight loss - Cardiovascular Cardiovascular ROS IM: no chest pain, no dyspnea, no dyspnea on exertion, no syncope - Respiratory Respiratory: no cough, no dyspnea - Gastrointestinal Gastrointestinal: abdominal pain, melena, no coffee ground emesis, no diarrhea, no hematemesis, no hematochezia, no nausea, no vomiting Internal Medicine - CN: Meds Insulin Glargine,Hum.rec.anlog [Lantus Solostar] 5 - 10 unit SQ HS 01/13/17 [ History] Oxycodone HCl/Acetaminophen [Endocet 10-325 mg Tablet] 1 tab PO Q8H PRN [History] glyBURIDE [GlyBURIDE] 5 mg PO DAILY 01/13/17 [History] 3 Allergy/AdvReac Type Severity Reaction Status Date / Time codeine Allergy Rash Verified 01/10/17 12:48 gabapentin Allergy Anaphylaxis Verified 01/10/17 12:48 Internal Medicine - CN: Exam - Constitutional Vitals: Temp Pulse Resp BP Pulse Ox 97.6 F 80 18 141/51 96 01/15/17 05:59 01/15/17 05:59 01/15/17 05:59 01/15/17 05:59 01/15/17 05:59 General appearance IM: Present: A&O X 3, pleasant, no acute distress Exam: Historian status is somewhat questionable, she had initially denied any abdominal pain, and then when her nurse came in, admitted that she had been having some left upper quadrant/epigastric discomfort. - ENT ENT exam: Present: mucous membranes moist Additional comments: Poor dentition - Neck Neck exam general surgery: Present: full ROM, supple, trachea midline - Respiratory Respiratory exam: Present: CTAB. Absent: wheezes, tachypnea - Cardiovascular Cardiovascular exam IM: Present: RRR, +S1, +S2, +S4. Absent: JVD - GI/Abdominal GI/Abdominal exam IM: Present: normal bowel sounds, soft, no peritoneal signs. Absent: guarding, mass, rebound, rigid, splenomegaly Additional comments: Mild pain, with firmness in the left upper quadrant/epigastric area. No peritoneal signs. - Rectal Rectal exam: Present: deferred Internal Medicine - CN: Reslt - Labs CBC & Chem 7: 01/15/17 04:11 01/15/17 04:11 Labs: Short CBC 01/14/17 01/15/17 Range/Units 12:31 04:11 WBC 10.3 (4.3-11.1) K/mcL Hgb 8.7 L 8.1 L (11.5-15.4) g/dL Hct 27.1 L 25.6 L (35.3-44.9) % Plt Count 242 (140-400) K/mcL Neutrophils # 6.9 (1.6-8.9) K/mcL BMP 01/15/17 04:11 Sodium 137 Potassium 4.1 Chloride 108 Carbon Dioxide 21 BUN 19 Creatinine 0.90 Glucose 66 L Calcium 8.0 L Liver Function 01/15/17 Range/Units 04:11 Total Bilirubin 0.3 (0.2-1.2) mg/dL AST 29 (5-34) Units/L ALT 17 (0-55) Units/L Alkaline Phosphatase 87 (38-126) Units/L Albumin 2.6 L (3.5-5.0) g/dL - ABG Interpretation ABG results: PT/INR, D-dimer PT 12.0 Seconds (9.4-12.1) 01/15/17 08:46 - Impressions Impressions Chest X-Ray 01/14/17 20:40 IMPRESSION: Suspect small right effusion. Otherwise, no evidence of pneumonia or any other acute cardiopulmonary abnormality. D/ / Sami Robles / Sami Robles Interpreting Provider: Sami Robles Consult Discharge Plan - Plan Referrals: Justin Burroughs MD [Primary Care Provider] -
[2017-01-15] MEDS ORDERED: *HR* FentaNYL (PF) 100 MCG/2 ML VIAL ONE (11:48)
--- NOTE | 2017-01-15 11:52 | Pre-Sedation Evaluation ---
Pre-sedation evaluation - Pre-sedation checklist Date of procedure: 01/13/17 Procedure: [facility] Recent Vitals: Last Vital Signs Temp 97.6 F 01/15/17 05:59 Pulse 80 01/15/17 05:59 Resp 18 01/15/17 05:59 BP 141/51 01/15/17 05:59 Pulse Ox 96 01/15/17 05:59 H&P (including ROS) documented in medical record: Yes Previous reaction to sedatives/anesthetics: No Dietary Status: NPO after Midnight Airway Assessment: Patient can open mouth completely, TMJ function normal Dentition: poor dentition Possible difficult airway: No ASA Classification *see protocol: CLASS III-Severe systemic disease
[2017-01-15] MEDS ORDERED: Tetracaine/Benzocaine/Butamben 200MG/SPRAY (100SPY/BOT) MM ONE (11:53)
[2017-01-15] MEDS ORDERED: *HR* FentaNYL (PF) 100 MCG/2 ML VIAL IVP ONE (11:53)
[2017-01-15] MEDS ORDERED: Simethicone 40 MG/0.6 ML MLS IR ONE (11:53)
--- NOTE | 2017-01-15 12:24 | Event Note ---
Date of Encounter: 01/15/17 Time of Encounter: 12:22 EGD Findings: Small Hiatal Hernia.. no blood or erythema or ulcerations noted. Plan: If she is willing, will need Colonoscopy; will plan AM of 01/16. HGB will need to be watched through the day. Clear liquids. Will Change PPI to po.
[2017-01-15] MEDS: Levofloxacin 750 MG/150 ML 750 MG/150 ML BAG IVPB SCH (12:53)
[2017-01-15] MEDS ORDERED: PEG/Electrolytes/Ascorbic Acid 1 EACH POWD.PACK PO ONE (16:24)
[2017-01-15] MEDS: *HR* Ticagrelor 90 MG TABLET PO SCH ×2 (16:25→20:14)
[2017-01-15] MEDS: Isosorbide MONOnitrate (24 HR) 30 MG TAB.ER.24H PO SCH (16:32)
[2017-01-15 16:34] LABS: Hematocrit 29.5 % (35.3-44.9); Hemoglobin 9.7 g/dL (11.5-15.4)
[2017-01-15] MEDS: Aspirin 81 MG TAB.CHEW PO SCH (16:34)
[2017-01-15] MEDS: 0.9 % Sodium Chloride 1,000 ML IVC SCH (20:21)
[2017-01-16 05:12] LABS: Hematocrit 25.9 % (35.3-44.9); Hemoglobin 8.5 g/dL (11.5-15.4); Mean Corpuscular HGB Conc 32.8 g/dL (31.6-35.5); Mean Corpuscular Volume 94.5 fL (83.0-100.0); Mean Platelet Volume 10.7 fL (9.4-12.4); Platelet Count 248 K/mcL (140-400); Red Blood Count 2.74 M/mcL (3.82-4.97); Red Cell Distribution Width 12.3 % (11.5-14.5)
[2017-01-16 06:01] LABS: BUN/Creatinine Ratio 17 (6-26); Blood Urea Nitrogen 16 mg/dL (7-20); Carbon Dioxide 21 mEq/L (19-29); Chloride 106 mEq/L (98-109); Glucose 61 mg/dL (70-99); Osmolality,Calculated 283 (280-300); Potassium 3.3 mEq/L (3.5-4.5); Sodium 137 mEq/L (136-145); eGFR For African Americans > 60 (> 60); eGFR For Non-African Americans 58 (> 60)
[2017-01-16] MEDS ORDERED: Potassium Chloride 20 MEQ, Lidocaine 1% 2 ML in D5% in Water 250 ML IVPB ONE (07:22)
[2017-01-16] MEDS ORDERED: *HR* Midazolam HCl 5 MG/5 ML VIAL IVP ONE ×2 (07:28→08:00)
--- NOTE | 2017-01-16 07:29 | Internal Med Progress Note ---
<Haile Persaud - Last Filed: 01/16/17 11:23> Date of Encounter: 01/16/17 Time of Encounter: 07:23 - Assessment and plan (1) Acute blood loss anemia Current Visit: Yes Status: Acute Assessment and plan: Hemoglobin stable. Patient denies bloody or dark tarry stool today. Patient has received IV fluid, which can cause dilutional decrease of hemoglobin. Patient has decreased hematuria. Anemia workup reveals iron deficiency anemia, started iron IV We will continue closely monitor vitals and hemoglobin level. EGD unremarkable. She reports drinking most of her bowl prep last night. Colonoscopy negative today. GI following (2) Abdominal pain Current Visit: Yes Status: Acute Assessment and plan: Patient remains afebrile. Conitinue Zofran IV prn LFTs, Amylase, Lipase unremarkable RUQ ultrasound reveals thickened edematous appearing gallbladder wall. No gallstones identified. Correlate for clinical symptoms of acalculous cholecystitis. EGD unremarkable. Colonoscopy negative CT abd/plv pending Clear liquids Prilosec PO BID Gentle hydration GI following Qualifiers: Abdominal location: epigastric Qualified Code(s): R10.13 - Epigastric pain (3) UTI (urinary tract infection) Current Visit: Yes Status: Acute Assessment and plan: UA reveals turbid appearance, gross hematuria, ketones and leukocyte estrase Urine culture reveals staph simulans sensitive to Levaquin Levaquin IV (Day 2 of 10) Qualifiers: Urinary tract infection type: acute cystitis Hematuria presence: with hematuria Qualified Code(s): N30.01 - Acute cystitis with hematuria (4) STEMI (ST elevation myocardial infarction) Current Visit: Yes Status: Acute Assessment and plan: Admitted for STEMI and had DWAYNE on 01/13/17 Management per cardiology Patient is on DAPT and lovenox for DVT prophylaxis, hold Lovenox due to gross hematuria Qualifiers: Involved coronary artery: right coronary artery Qualified Code(s): I21.11 - ST elevation (STEMI) myocardial infarction involving right coronary artery (5) Hypertension Current Visit: Yes Status: Chronic Assessment and plan: Continue to monitor Management per cardiology Qualifiers: Hypertension type: essential hypertension Qualified Code(s): I10 - Essential (primary) hypertension (6) Diabetes mellitus, type II Current Visit: Yes Status: Chronic Assessment and plan: Patient to use Lantus and glyburide at home. However, her glucose level is well controlled with current sliding scale and glyburide. Continue current regimen and follow-up glucose level. Qualifiers: Diabetes mellitus complication status: without complication Diabetes mellitus jail insulin use: without jail use Qualified Code(s): E11.9 - Type 2 diabetes mellitus without complications (7) GERD (gastroesophageal reflux disease) Current Visit: Yes Status: Acute Assessment and plan: Patient has h/o GERD. EGD unremarkable. Resume omeprazole Qualifiers: Esophagitis presence: without esophagitis Qualified Code(s): K21.9 - Gastro -esophageal reflux disease without esophagitis (8) Hypokalemia Current Visit: Yes Status: Acute Assessment and plan: Supplement K Continue to monitor (9) DVT prophylaxis Current Visit: Yes Status: Acute Assessment and plan: Patient is on DAPT and lovenox for DVT prophylaxis, hold Lovenox due to hematuria EPCD for DVT prophylaxis. - Subjective Interval history: Patient seen and examined. Patient remains afebrile and reports ongoing epigastric pain discomfort today. She has decreased hematuria in alanis catheter today. She reports drinking most of her bowl prep last night and denies nausea/ vomiting. Colonoscopy was negative today and patient started on Iron IV. - Constitutional Vitals: Temp Pulse Resp BP Pulse Ox 98.3 F 78 15 161/60 96 01/15/17 18:48 01/16/17 04:37 01/16/17 04:37 01/16/17 04:37 01/16/17 04:37 General appearance: Present: cooperative, A&O X 3, pleasant, no acute distress, answers questions appropriately Exam: - Head Head exam: Present: atraumatic, normocephalic - Eye Eye exam: Present: PERRL, conjuntiva pink, sclera anicteric Pupils: Present: PERRL - ENT ENT exam: Present: mucous membranes dry, normal oropharynx Additional comments: poor dentition - Neck Neck exam general surgery: Present: supple, trachea midline. Absent: lymphadenopathy - Respiratory Respiratory exam: Present: CTAB. Absent: accessory muscle use, respiratory distress, rhonchi, wheezes - Cardiovascular Cardiovascular exam: Present: RRR, +S1, +S2. Absent: diastolic murmur, gallop, rubs, systolic murmur - GI/Abdominal GI/Abdominal exam: Present: normal bowel sounds, soft, tenderness (LUQ), no peritoneal signs. Absent: guarding, distended - Expanded GI/Abdominal Exam GI/Abdominal exam expanded: Present: Cash's sign - Additional comments: alanis with decreased hematuria - Extremities Exam Extremities exam: Present: normal inspection (minimal ecchymosis at right groin cath site), warm, radial pulses palpable and symmetrical. Absent: calf tenderness, cyanotic, pedal edema - Neurological Exam Neurological exam: Present: CN II-XII intact, oriented X3, no focal deficits. Absent: pronater drift, facial droop, speech deficit - Psychiatric Psychiatric exam: Present: normal affect, normal mood - Skin Skin exam: Present: dry, intact Additional comments: minimal ecchymosis at right groin cath site Internal Medicine: Result - Labs CBC & Chem 7: 01/16/17 04:54 01/16/17 04:54 Labs: Short CBC 01/15/17 01/16/17 Range/Units 16:27 04:54 WBC 11.4 H (4.3-11.1) K/mcL Hgb 9.7 L D 8.5 L (11.5-15.4) g/dL Hct 29.5 L 25.9 L (35.3-44.9) % Plt Count 248 (140-400) K/mcL BMP 01/15/17 01/16/17 04:11 04:54 Sodium 137 137 Potassium 4.1 3.3 L Chloride 108 106 Carbon Dioxide 21 21 BUN 19 16 Creatinine 0.90 0.95 Glucose 66 L 61 L Calcium 8.0 L 8.0 L Liver Function 01/15/17 Range/Units 04:11 Total Bilirubin 0.3 (0.2-1.2) mg/dL AST 29 (5-34) Units/L ALT 17 (0-55) Units/L Alkaline Phosphatase 87 (38-126) Units/L Albumin 2.6 L (3.5-5.0) g/dL - ABG Interpretation ABG results: PT/INR, D-dimer PT 12.0 Seconds (9.4-12.1) 01/15/17 08:46 - Pulse Oximetry Interpretation Digit-Finger Pulse Oximetry Readin (on RA) - Impressions Impressions Gallbladder Ultrasound 01/15/17 08:33 IMPRESSION: Thickened edematous appearing gallbladder wall. No gallstones identified. Correlate for clinical symptoms of acalculous cholecystitis. D/ / Troy Schumacher MD / Troy Schumacher MD Interpreting Provider: Troy Schumacher MD - VTE Documentation of Mechanical Device: Intermittent pneumatic compression device Consult Discharge Plan - Plan Referrals: Justin Burroughs MD [Primary Care Provider] - <JoseMichaelDale White - Last Filed: 01/16/17 11:26> Date of Encounter: 01/16/17 - Constitutional Vitals: Temp Pulse Resp BP Pulse Ox 98.1 F 73 15 156/86 94 01/16/17 06:38 01/16/17 08:36 01/16/17 08:36 01/16/17 08:36 01/16/17 08:36 Internal Medicine: Result - Labs CBC & Chem 7: 01/16/17 04:54 01/16/17 04:54 Labs: Short CBC 01/15/17 01/16/17 Range/Units 16:27 04:54 WBC 11.4 H (4.3-11.1) K/mcL Hgb 9.7 L D 8.5 L (11.5-15.4) g/dL Hct 29.5 L 25.9 L (35.3-44.9) % Plt Count 248 (140-400) K/mcL BMP 01/16/17 04:54 Sodium 137 Potassium 3.3 L Chloride 106 Carbon Dioxide 21 BUN 16 Creatinine 0.95 Glucose 61 L Calcium 8.0 L - ABG Interpretation ABG results: PT/INR, D-dimer PT 12.0 Seconds (9.4-12.1) 01/15/17 08:46 - Impressions Impressions Gallbladder Ultrasound 01/15/17 08:33 IMPRESSION: Thickened edematous appearing gallbladder wall. No gallstones identified. Correlate for clinical symptoms of acalculous cholecystitis. D/ / Troy Schumacher MD / Troy Schumacher MD Interpreting Provider: Troy Schumacher MD - Attending Attestation Treat UTI for [address] of the abdomen ( abdominal pain ) I examined this patient and my medical decision-making was reviewed with the Resident Physician. I agree with the documented findings, disposition and treatment plan as described except to the extent set forth below.
[2017-01-16] MEDS ORDERED: *HR* FentaNYL (PF) 100 MCG/2 ML VIAL ONE (07:30)
[2017-01-16] MEDS ORDERED: *HR* FentaNYL (PF) 100 MCG/2 ML VIAL IVP ONE (08:00)
[2017-01-16] MEDS ORDERED: Simethicone 40 MG/0.6 ML MLS IR ONE (08:00)
[2017-01-16] MEDS ORDERED: 0.9 % Sodium Chloride 1,000 ML IVC SCH (08:00)
--- NOTE | 2017-01-16 08:01 | Pre-Sedation Evaluation ---
Pre-sedation evaluation - Pre-sedation checklist Date of procedure: 01/13/17 Procedure: Colonoscopy Recent Vitals: Last Vital Signs Temp 98.3 F 01/15/17 18:48 Pulse 78 01/16/17 04:37 Resp 15 01/16/17 04:37 BP 161/60 01/16/17 04:37 Pulse Ox 96 01/16/17 04:37 H&P (including ROS) documented in medical record: Yes Previous reaction to sedatives/anesthetics: No Dietary Status: NPO after Midnight Airway Assessment: Patient can open mouth completely, TMJ function normal Dentition: poor dentition Possible difficult airway: No ASA Classification *see protocol: CLASS III-Severe systemic disease
[2017-01-16] MEDS ORDERED: Ferumoxytol 510 MG in 0.9 % Sodium Chloride 100 ML IVPB ONE (08:45)
--- NOTE | 2017-01-16 08:48 | Event Note ---
Date of Encounter: 01/16/17 Time of Encounter: 08:42 Colonoscopy Findings: 1. Normal colon; no blood or melena noted. Does not appear she has GI bleeding. Will write for IV Iron today. Advance diet. Cont. Anti-platelet agents. Would recommend CT or US of Kidney due to the Anemia
[2017-01-16] MEDS: Aspirin 81 MG TAB.CHEW PO SCH (09:44)
[2017-01-16] MEDS: Isosorbide MONOnitrate (24 HR) 30 MG TAB.ER.24H PO SCH (09:44)
[2017-01-16] MEDS: Levofloxacin 750 MG/150 ML 750 MG/150 ML BAG IVPB SCH (09:44)
[2017-01-16] MEDS: *HR* Ticagrelor 90 MG TABLET PO SCH ×2 (09:44→20:21)
[2017-01-16] MEDS: Insulin LISPRO 300 UNITS/3 ML VIAL SQ SCH ×4 (09:46→20:22)
--- NOTE | 2017-01-16 14:48 | Cardiology Progress Note ---
Date of Encounter: 01/16/17 Time of Encounter: 08:30 Assessment and Plan (1) STEMI (ST elevation myocardial infarction) Current Visit: Yes Status: Acute No new symptoms today. S/p emergent LHC for STEMI having undergone PCI with DWAYNE to her ostial and mid RCA with residual 70-80% stenosis in her mLAD planned for a staged PCI as outpatient. No complication with right femoral access site. TTE shows preserved LVEF with no significant valvular disease. No new murmurs on exam. Patient will require 12 months of DAPT. Continue Imdur, BB ( will uptitrate for better BP control) and statin. Qualifiers: Involved coronary artery: right coronary artery Qualified Code(s): I21.11 - ST elevation (STEMI) myocardial infarction involving right coronary artery (2) Anemia Current Visit: Yes Status: Acute Acute drop in blood count during her stay. Hemoglobin is now stable. She underwent EGD and colonoscopy which were unremarkable. Urine appears more clear today. We will defer to hospitalist team to help in management. Appreciate Hospitalist recommendations. Recommend continuing dual antiplatelet therapy. PPI was started. Qualifiers: Chronic kidney disease stage: unspecified stage Qualified Code(s): N18.9 - Chronic kidney disease, unspecified; D63.1 - Anemia in chronic kidney disease; D63.1 - Anemia in chronic kidney disease Discussion w patient/family: The assessment and plan as outlined above discussed with the patient. Anticipate discharge Tuesday if blood pressure is better controlled and pending workup by hospitalist team for anemia and treatment for urinary tract infection. Subjective Principal diagnosis: Acute inferior AR Interval history: Patient states she feels much better today. She denies having abdominal pain, nausea or vomiting. She is not having chest pain. Objective Vital Signs, Last 4 Hours Temp Pulse Resp BP Pulse Ox 01/16/17 13:40 97.7 F 74 16 165/69 96 General: Conversant, No Apparent Distress HEENT: Mucus Membranes Moist Neck: No JVD Cardiac: Reg Rate and Rhythm, Normal S1 and S2, No Murmur Lungs: Normal Breath Sounds Neuro: Alert and responsive, No focal deficits noted Abdomen: Soft, Non-Tender, Other (Bowel sounds present) Extremities: No Edema, Other (right groin remained soft and nontender) Results 01/16/17 04:54 01/16/17 04:54 Lab Results 11/01/16/17 01/16/17 16:27 04:54 04:54 WBC 11.4 H Hgb 9.7 L D 8.5 L Hct 29.5 L 25.9 L Plt Count 248 Sodium 137 Potassium 3.3 L Chloride 106 Carbon Dioxide 21 BUN 16 Creatinine 0.95 Glucose 61 L Calcium 8.0 L - Imaging and Cardiology Other Results: EGD/Cscope reports reviewed - EKG Interpretation EKG results cardiology: other (24h telemetry demonstrates average heart rate 77 bpm with a brief short run of atrial tachycardia, otherwise no dysrhythmia) - VTE Documentation of Mechanical Device: Intermittent pneumatic compression device Consult Discharge Plan - Plan Referrals: Justin Burroughs MD [Primary Care Provider] -
[2017-01-16] MEDS: 0.9 % Sodium Chloride 1,000 ML IVC SCH (16:39)
[2017-01-16] MEDS: metroNIDAZOLE 500 MG TABLET PO SCH (20:21)
[2017-01-17 03:23] LABS: Basophils % 0.5 %; Eosinophils # 0.1 K/mcL (0.0-0.6); Eosinophils % 1.1 %; Hematocrit 24.5 % (35.3-44.9); Immature Granulocytes % 1.9 % (0-4); Lymphocytes # 1.9 K/mcL (0.6-4.6); Lymphocytes % 21.6 %; Mean Corpuscular HGB Conc 32.7 g/dL (31.6-35.5); Mean Corpuscular Hemoglobin 30.9 pg (28.0-33.3); Mean Corpuscular Volume 94.6 fL (83.0-100.0); Mean Platelet Volume 11.1 fL (9.4-12.4); Monocytes # 0.9 K/mcL (0.0-1.3); Monocytes % 10.4 %; Neutrophils # 5.6 K/mcL (1.6-8.9); Platelet Count 233 K/mcL (140-400); Red Blood Count 2.59 M/mcL (3.82-4.97); Red Cell Distribution Width 12.1 % (11.5-14.5); Segmented Neutrophils % 64.5 %
[2017-01-17 03:45] LABS: Alanine Aminotransferase 16 Units/L (0-55); Albumin 2.3 g/dL (3.5-5.0); Albumin/Globulin Ratio 0.8 (1.1-2.2); Alkaline Phosphatase 83 Units/L (38-126); Aspartate Amino Transferase 19 Units/L (5-34); BUN/Creatinine Ratio 15 (6-26); Bilirubin,Total 0.2 mg/dL (0.2-1.2); Blood Urea Nitrogen 14 mg/dL (7-20); Calcium 8.2 mg/dL (8.6-10.8); Carbon Dioxide 20 mEq/L (19-29); Chloride 109 mEq/L (98-109); Globulin 2.8 g/dL (2.4-3.5); Glucose 109 mg/dL (70-99); Osmolality,Calculated 283 (280-300); Potassium 4.1 mEq/L (3.5-4.5); Sodium 136 mEq/L (136-145); Total Protein 5.1 g/dL (6.0-8.3); eGFR For African Americans > 60 (> 60); eGFR For Non-African Americans 60 (> 60)
[2017-01-17] MEDS: 0.9 % Sodium Chloride 1,000 ML IVC SCH (04:52)
[2017-01-17] MEDS: Ondansetron 4 MG/2 ML VIAL IVP PRN (08:05)
[2017-01-17] MEDS: Levofloxacin 750 MG/150 ML 750 MG/150 ML BAG IVPB SCH (08:07)
[2017-01-17] MEDS: *HR* Ticagrelor 90 MG TABLET PO SCH (10:47)
[2017-01-17] MEDS: Aspirin 81 MG TAB.CHEW PO SCH (10:47)
[2017-01-17] MEDS: metroNIDAZOLE 500 MG TABLET PO SCH ×2 (10:47→15:36)
[2017-01-17] MEDS: Insulin LISPRO 300 UNITS/3 ML VIAL SQ SCH ×2 (10:48→12:08)
[2017-01-17] MEDS: Isosorbide MONOnitrate (24 HR) 30 MG TAB.ER.24H PO SCH (10:48)
--- NOTE | 2017-01-17 10:54 | Internal Med Progress Note ---
<Vasiliy Beaulieu - Last Filed: 01/17/17 10:42> Date of Encounter: 01/17/17 Time of Encounter: 10:43 - Assessment and plan (1) STEMI (ST elevation myocardial infarction) Current Visit: Yes Status: Ruled-out Assessment and plan: Mrs. Valverde 8-year-old female with type 2 diabetes was admitted with chest pain found to have a STEMI underwent emergency left heart catheterization undergone PCI with DWAYNE to her ostial and mid RCA with residual 70-80% stenosis in her mid LAD. Cardiology plans to do a staged PCI in the outpatient setting to address this. She underwent transthoracic echocardiogram demonstrating preserved left ventricular ejection fraction with no significant valvular disease. Plan: - Patient will require dual antiplatelet therapy for 12 months currently on Brillenta and aspirin - Follow up with cardiology in the outpatient setting - Continue to maximize cardiac therapy: Continue aspirin, Crestor, lisinopril, Coreg, cardiac diet Qualifiers: Involved coronary artery: right coronary artery Qualified Code(s): I21.11 - ST elevation (STEMI) myocardial infarction involving right coronary artery (2) Hypertension Current Visit: Yes Status: Chronic Assessment and plan: Patient admitted with hypertension in the setting of STEMI. Current blood pressures remain elevated systolically with last blood pressure 183/71. Patient received lisinopril and Coreg this morning. We will recheck blood pressure this afternoon if continues to be hypertensive will increase lisinopril dose. - Patient has history of chronic kidney disease will obtain renal ultrasound. - Continue current blood pressure coverage with lisinopril 10 mg, Coreg 25 mg by mouth twice a day Qualifiers: Hypertension type: essential hypertension Qualified Code(s): I10 - Essential (primary) hypertension (3) Diabetes mellitus, type II Current Visit: Yes Status: Chronic Assessment and plan: Known type II diabetic, I will glucoses currently controlled on inpatient sliding scale. 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 Since admission she has been placed on dual antiplatelet therapy and underwent LHC. Her hemoglobin is currently 8.0 with a steady decline over the last several days. Patient has severe coronary artery disease and still requires PCI to her mid LAD. Maintain hemoglobin greater than 8.0 Patient underwent EGD and colonoscopy without finding a source of bleeding. Current fluid balance is -1302 mL's, she does have low iron studies but a normal MCV, history of chronic kidney disease will obtain renal ultrasound - Currently receiving iron therapy Plan: - Maintain hemoglobin greater than 8.0, may require PRBC transfusion - Retroperitoneal ultrasound - Continue oral ferrous sulfate 325 mg twice a day Qualifiers: Chronic kidney disease stage: unspecified stage Qualified Code(s): N18.9 - Chronic kidney disease, unspecified (5) UTI (urinary tract infection) Current Visit: Yes Status: Acute Assessment and plan: Currently covered with appropriate antibiotic coverage. Qualifiers: Urinary tract infection type: acute cystitis Hematuria presence: with hematuria Qualified Code(s): N30.01 - Acute cystitis with hematuria (6) Colitis Current Visit: Yes Status: Acute Assessment and plan: Findings of descending colitis on abdominal CT. Patient did have some abdominal discomfort and some mild diarrhea. Patient has been afebrile and improving WBC count. We will continue levofloxacin and add metronidazole. (7) DVT prophylaxis Current Visit: Yes Status: Acute Assessment and plan: Patient currently anemic with with hemoglobin that is declining. We will hold anticoagulation with potential GI bleed. - Subjective Interval history: Mrs. Valverde 71-year-old female has been seen in the patient bedside this morning. She states that she is doing well and was discharged home. She denies any headaches, blurry vision, neck pains, chest pain, palpitations, abdominal pains, shortness of breath, nausea vomiting but does have a little bit of loose stool formation denies any foul odor or any current epigastric discomforts. She denies any pain with urination, blood in her urine in her sputum or in her stool. She denies ever having dark tarry stools, blood in her stools but does have a history of previously having hemorrhoids. She denies any other noticeable causes for her anemia. She denies any weakness, lethargy or near syncopal episodes with ambulation. - Constitutional Vitals: Temp Pulse Resp BP Pulse Ox 98.2 F 80 15 183/71 98 01/17/17 07:14 01/17/17 07:14 01/17/17 07:14 01/17/17 07:14 01/17/17 07:14 General appearance: Present: cooperative, A&O X 3, pleasant, no acute distress, answers questions appropriately Exam: General: Patient alert, awake, oriented 3, interactive, in no acute distress HEENT: Normocephalic, atraumatic, pupils equal reactive to light, nasal cavity patent and open septum median position, oral mucosa moist, poor dentition, neck supple trachea midline no palpable lymphadenopathy, no thyromegaly. Chest: Symmetric bilateral correlating with respiratory effort, effort nonlabored. Cardiac: Regular rate and rhythm, positive S1 and S2. no bruits appreciated bilateral carotids, Radial pulses 2+ bilateral, posterior tibial and dorsal pedal pulses 2+ bilateral. Respiratory: Clear to auscultation all lung mccloud Abdomen: Soft, nontender, positive bowel sounds, no palpable masses appreciated on examination Extremities: Symmetric bilateral, bilateral lower extremities without erythema or edema patient moving all 4 extremities spontaneously. Neurologic: No focal deficits appreciated on examination. Face symmetric, muscle strength symmetric bilateral upper and lower extremities. Internal Medicine: Result - Labs CBC & Chem 7: 01/17/17 02:15 01/17/17 02:15 Labs: Short CBC 01/17/17 Range/Units 02:15 WBC 8.7 (4.3-11.1) K/mcL Hgb 8.0 L (11.5-15.4) g/dL Hct 24.5 L (35.3-44.9) % Plt Count 233 (140-400) K/mcL Neutrophils # 5.6 (1.6-8.9) K/mcL BMP 01/17/17 02:15 Sodium 136 Potassium 4.1 Chloride 109 Carbon Dioxide 20 BUN 14 Creatinine 0.93 Glucose 109 H Calcium 8.2 L Liver Function 01/17/17 Range/Units 02:15 Total Bilirubin 0.2 (0.2-1.2) mg/dL AST 19 (5-34) Units/L ALT 16 (0-55) Units/L Alkaline Phosphatase 83 (38-126) Units/L Albumin 2.3 L (3.5-5.0) g/dL - ABG Interpretation ABG results: PT/INR, D-dimer PT 12.0 Seconds (9.4-12.1) 01/15/17 08:46 - Impressions Impressions Abdomen/Pelvis CT 01/16/17 14:30 IMPRESSION: Bowel wall thickening of the descending colon with mild prominence of the enhancement pattern. While findings may be accentuated by incomplete distention, findings concerning for colitis, given patient history. Thickened somewhat abnormal appearance of the bladder with air within the bladder. Please correlate with any recent catheterization. Otherwise consider a gas-forming organism. Recommend correlation with urinalysis results. Thickening of the wall of the gallbladder. Recommend follow-up right upper quadrant ultrasound. Stranding and mild adenopathy within the upper abdomen likely reactive in nature. Scattered ground-glass and dependent opacities and at the lung bases likely postinflammatory or infectious. Recommend follow-up to resolution. Small bilateral pleural effusions are noted. D/ / 01/16/2017 15:59:05 Justen Polo MD / chano Interpreting Provider: Justen Polo MD - VTE Documentation of Mechanical Device: Intermittent pneumatic compression device Consult Discharge Plan - Plan Additional Instructions: RISK FACTORS: STOP SMOKING: If you smoke, STOP. Smoking or tobacco use significantly increases your risk of heart disease because nicotine causes the arteries to narrow or constrict. It also causes fats to stick to the artery. Your chances of having a heart attack are greatly increased if you continue to smoke. For more information, call the education line for smoking cessation 5-455-OVCQBUK EAT A LOW FAT/CHOLESTEROL/SODIUM DIET: This diet may help reduce your chances of having a heart attack. LIFTING: Avoid lifting anything more than 10 pounds for 5-7 days Prior to straining, laughing, sneezing and/or coughing, apply manual pressure directly over insertion site. ACTIVITY: You may walk or climb stairs as tolerated You can resume sexual activity as tolerated In general, you are encouraged to engage in a minimum of 30 minutes or more of moderate intensity physical activity, such as brisk walking, daily or at least 3 -4 times weekly BATHING Do not submerge the site into water (bath tub, hot tub, swimming pool) for 1 week. This can be a source for infection into the blood stream. You may shower after 24 hours SITE CARE: After 24 hours, you may remove the dressing and leave the site open to air. Keep the site clean and dry. Clean gently and pat dry. You can expect bruising and tenderness that gradually resolve within a week or two. Return to work as instructed per your physician Resume driving as instructed per physician Keep all scheduled follow up appointments Resume medications as instructed IMPORTANT: If prescribed a Platelet Aggregation Inhibitor such as, Plavix, Brilinta or Effient: Duration of therapy is minimum one year These medications are often used in combination with Aspirin in prevention of future heart attacks Never discontinue unless consult with your Reinforcing Metal Worker STROKE (CVA) Risk factors for a stroke are: Age, cigarette smoking, diabetes, excessive alcohol consumption, family history, high blood pressure, overweight, physical inactivity, prior stroke, heart attack, diagnosis of carotid artery stenosis or other artery disease. Warning signs: Sudden numbness or weakness of the face, arm or leg; especially on one side of the body, sudden confusion, trouble speaking or understanding, sudden trouble seeing in one or both eyes, sudden trouble walking, dizziness, loss of balance or coordination, sudden severe headache with no cause. Call 911 or go to the Emergency Room. CONGESTIVE HEART FAILURE: If you have been diagnosed with Congestive Heart Failure (CHF) and your symptoms return, make an appointment with your physician Weigh yourself daily. Notify your physician if you have a weight gain of two or more pounds in one day or five or more pounds in one week. If you experience any difficulty breathing, please call 911 BLEEDING: Although the risk of bleeding is minimal, it can happen. If you have any bleeding from the site, apply firm pressure above the puncture site for 10-15 minutes. If the bleeding does not stop, continue manual pressure and call 911 Contact your physician if: You develop a fever greater than 101 degrees Fahrenheit Your site becomes reddened or has any drainage You have an increase in pain or burning at the site or if a large knot forms at the site. If you experience chest pain, shortness of breath, dizziness, or extreme tiredness, stop the activity and rest. Please notify your physicians office if you experience any of these symptoms and they are not relieved by rest please call 911! Referrals: Wallace Yip MD [Partnered Physician] - (Out-pt f/u will be coordinated by [facility]) Justin Burroughs MD [Primary Care Provider] - (Schedule in one week) Jovan Ng DO [Partnered Physician] - (1-2 weeks f/u for GI s/p colonoscopy) Prescriptions: Nitroglycerin 0.4 mg SL Q5MIN PRN #25 tab.subl PRN Reason: Chest Pain Aspirin 81 mg PO DAILY #30 tab.chew Calcium Carbonate [Tums] 1,000 mg PO TID PRN #90 tab.chew PRN Reason: Heartburn Carvedilol [Coreg] 25 mg PO BIDWM #60 tablet Ferrous Sulfate 325 mg PO BIDWM #60 tablet levoFLOXacin [Levaquin] 750 mg PO DAILY #7 tablet Lisinopril [Zestril] 20 mg PO DAILY #30 tablet metroNIDAZOLE [Metronidazole] 500 mg PO TID #21 tablet Omeprazole [PriLOSEC] 20 mg PO BIDAC 30 Days #60 capsule. Rosuvastatin [Crestor] 40 mg PO HS #30 tablet Ticagrelor [Brilinta] 90 mg PO BID #60 tablet <Dale Casillas H - Last Filed: 01/17/17 16:02> Date of Encounter: 01/17/17 - Constitutional Vitals: Temp Pulse Resp BP Pulse Ox 98.2 F 70 15 154/68 98 01/17/17 11:31 01/17/17 11:31 01/17/17 11:31 01/17/17 11:31 01/17/17 11:31 Internal Medicine: Result - Labs CBC & Chem 7: 01/17/17 02:15 01/17/17 02:15 Labs: Short CBC 01/17/17 Range/Units 02:15 WBC 8.7 (4.3-11.1) K/mcL Hgb 8.0 L (11.5-15.4) g/dL Hct 24.5 L (35.3-44.9) % Plt Count 233 (140-400) K/mcL Neutrophils # 5.6 (1.6-8.9) K/mcL BMP 01/17/17 02:15 Sodium 136 Potassium 4.1 Chloride 109 Carbon Dioxide 20 BUN 14 Creatinine 0.93 Glucose 109 H Calcium 8.2 L Liver Function 01/17/17 Range/Units 02:15 Total Bilirubin 0.2 (0.2-1.2) mg/dL AST 19 (5-34) Units/L ALT 16 (0-55) Units/L Alkaline Phosphatase 83 (38-126) Units/L Albumin 2.3 L (3.5-5.0) g/dL - ABG Interpretation ABG results: PT/INR, D-dimer PT 12.0 Seconds (9.4-12.1) 01/15/17 08:46 - Impressions Impressions Abdomen/Pelvis CT 01/16/17 14:30 IMPRESSION: Bowel wall thickening of the descending colon with mild prominence of the enhancement pattern. While findings may be accentuated by incomplete distention, findings concerning for colitis, given patient history. Thickened somewhat abnormal appearance of the bladder with air within the bladder. Please correlate with any recent catheterization. Otherwise consider a gas-forming organism. Recommend correlation with urinalysis results. Thickening of the wall of the gallbladder. Recommend follow-up right upper quadrant ultrasound. Stranding and mild adenopathy within the upper abdomen likely reactive in nature. Scattered ground-glass and dependent opacities and at the lung bases likely postinflammatory or infectious. Recommend follow-up to resolution. Small bilateral pleural effusions are noted. D/ / 01/16/2017 15:59:05 Justen Polo MD / chano Interpreting Provider: Justen Polo MD - Attending Attestation sepsis 2ry acute colitis and UTI with Staph simulans complete 7 days of levaquin and flagyl total I examined this patient and my medical decision-making was reviewed with the Resident Physician. I agree with the documented findings, disposition and treatment plan as described except to the extent set forth below.
[2017-01-17 11:32] VITALS: BP 154/68
--- NOTE | 2017-01-17 12:19 | Cardiology Progress Note ---
Date of Encounter: 01/17/17 Time of Encounter: 11:30 Assessment and Plan (1) STEMI (ST elevation myocardial infarction) Current Visit: Yes Status: Ruled-out No new symptoms today. S/p emergent LHC for STEMI having undergone PCI with DWAYNE to her ostial and mid RCA with residual 70-80% stenosis in her mLAD planned for a staged PCI as outpatient. No complication with right femoral access site. TTE shows preserved LVEF with no significant valvular disease. No new murmurs on exam. Patient will require 12 months of DAPT. Continue Imdur, BB ( will uptitrate for better BP control) and statin. Cardiac rehab consulted. 1 week out-pt f/u will be scheduled one patient discharged. D/c once cleared by hospitalist from anemia standpoint. Qualifiers: Involved coronary artery: right coronary artery Qualified Code(s): I21.11 - ST elevation (STEMI) myocardial infarction involving right coronary artery (2) Hypertension Current Visit: Yes Status: Chronic B/p uncontrolled. B/p 200/100 on admit. B/p elevated overnight and this morning. Continue carvedilol. Increase lisinopril to 20 mg daily. low sodium diet. Qualifiers: Hypertension type: essential hypertension Qualified Code(s): I10 - Essential (primary) hypertension (3) Diabetes mellitus, type II Current Visit: Yes Status: Chronic IDDM. On SSI while here. 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 Hemoglobin decreased today from 8.7- 8.0. Transfuse if less than 8.0. Hospitalist follwing. Appreciate recs. EGD/ Colonoscopy negative for GI bleed. Known iron deficiency. Received IV iron. Further work-up pending per hospitalist. Recommend continuing dual antiplatelet therapy uninterrupted d/t recent PCI. PPI was started. Qualifiers: Chronic kidney disease stage: unspecified stage Qualified Code(s): N18.9 - Chronic kidney disease, unspecified; D63.1 - Anemia in chronic kidney disease; D63.1 - Anemia in chronic kidney disease (5) UTI (urinary tract infection) Current Visit: Yes Status: Acute On levaquin. Qualifiers: Urinary tract infection type: acute cystitis Hematuria presence: with hematuria Qualified Code(s): N30.01 - Acute cystitis with hematuria Discussion w patient/family: The assessment and plan as outlined above was discussed with the patient and/or family members who expressed understanding and agreement. All questions were answered. Thank you for involving us in the care of your patient. Please call with any questions. Subjective Principal diagnosis: Acute inferior DE Interval history: Patient denies chest pain. C/o continued abdominal pain. IM and GI following for abdominal pain and anemia. Appreciate input. Objective Vital Signs, Last 4 Hours Temp Pulse Resp BP Pulse Ox 01/17/17 11:31 98.2 F 70 15 154/68 98 General: Conversant, No Apparent Distress HEENT: Atraumatic, Normocephaly, Mucus Membranes Moist Neck: No JVD, Normal carotid pulses Cardiac: Reg Rate and Rhythm, Normal S1 and S2, No Murmur Lungs: Normal Breath Sounds, No Wheeze, Rales, Rhonchi Neuro: Alert and responsive, No focal deficits noted Abdomen: Soft, Other (mildly tender to palpation.) Skin: No rashes noted on visualized skin Musculoskeletal: No Chest Wall Tenderness Extremities: No Clubbing, No Cyanosis, No Edema, Normal Pulses Results 01/17/17 02:15 01/17/17 02:15 Lab Results 01/17/17 01/17/17 02:15 02:15 WBC 8.7 Hgb 8.0 L Hct 24.5 L Plt Count 233 Sodium 136 Potassium 4.1 Chloride 109 Carbon Dioxide 20 BUN 14 Creatinine 0.93 Glucose 109 H Calcium 8.2 L Total Bilirubin 0.2 AST 19 ALT 16 Alkaline Phosphatase 83 - Imaging and Cardiology Echo: report reviewed - EKG Interpretation EKG results cardiology: personally reviewed - VTE Documentation of Mechanical Device: Intermittent pneumatic compression device Consult Discharge Plan - Plan Referrals: Justin Burroughs MD [Primary Care Provider] -
--- NOTE | 2017-01-17 15:35 | Discharge Summary ---
Date of Encounter: 01/17/17 Time of Encounter: 15:25 - Discharge Diagnosis (1) STEMI (ST elevation myocardial infarction) Priority: Primary Status: Acute Qualifiers: Involved coronary artery: right coronary artery Qualified Code(s): I21.11 - ST elevation (STEMI) myocardial infarction involving right coronary artery (2) Hypertension Priority: Primary Status: Acute Qualifiers: Hypertension type: essential hypertension Qualified Code(s): I10 - Essential (primary) hypertension (3) Diabetes mellitus, type II Priority: Secondary Status: Chronic Qualifiers: Diabetes mellitus complication status: without complication Diabetes mellitus correction insulin use: without correction use Qualified Code(s): E11.9 - Type 2 diabetes mellitus without complications (4) Anemia Priority: Primary Status: Acute Qualifiers: Anemia type: iron deficiency Iron deficiency anemia type: unspecified iron deficiency Qualified Code(s): D50.9 - Iron deficiency anemia, unspecified (5) UTI (urinary tract infection) Priority: Primary Status: Acute Qualifiers: Urinary tract infection type: acute cystitis Hematuria presence: with hematuria Qualified Code(s): N30.01 - Acute cystitis with hematuria - Discharge Medications Prescriptions: Nitroglycerin 0.4 mg SL Q5MIN PRN #25 tab.subl PRN Reason: Chest Pain Aspirin 81 mg PO DAILY #30 tab.chew Calcium Carbonate [Tums] 1,000 mg PO TID PRN #90 tab.chew PRN Reason: Heartburn Carvedilol [Coreg] 25 mg PO BIDWM #60 tablet Ferrous Sulfate 325 mg PO BIDWM #60 tablet levoFLOXacin [Levaquin] 750 mg PO DAILY #7 tablet Lisinopril [Zestril] 20 mg PO DAILY #30 tablet metroNIDAZOLE [Metronidazole] 500 mg PO TID #21 tablet Omeprazole [PriLOSEC] 20 mg PO BIDAC 30 Days #60 capsule. Rosuvastatin [Crestor] 40 mg PO HS #30 tablet Ticagrelor [Brilinta] 90 mg PO BID #60 tablet Home Medications: Insulin Glargine,Hum.rec.anlog [Lantus Solostar] 5 - 10 unit SQ HS 01/13/17 [ History] Oxycodone HCl/Acetaminophen [Endocet 10-325 mg Tablet] 1 tab PO Q8H PRN [History] glyBURIDE [GlyBURIDE] 5 mg PO DAILY 01/13/17 [History] Aspirin 81 mg PO DAILY #30 tab.chew 01/17/17 [Rx] Calcium Carbonate [Tums] 1,000 mg PO TID PRN #90 tab.chew 01/17/17 [Rx] Carvedilol [Coreg] 25 mg PO BIDWM #60 tablet 01/17/17 [Rx] Ferrous Sulfate 325 mg PO BIDWM #60 tablet 01/17/17 [Rx] Lisinopril [Zestril] 20 mg PO DAILY #30 tablet 01/17/17 [Rx] Nitroglycerin 0.4 mg SL Q5MIN PRN #25 tab.subl 01/17/17 [Rx] Omeprazole [PriLOSEC] 20 mg PO BIDAC 30 Days #60 capsule.dr 01/17/17 [Rx] Rosuvastatin [Crestor] 40 mg PO HS #30 tablet 01/17/17 [Rx] Ticagrelor [Brilinta] 90 mg PO BID #60 tablet 01/17/17 [Rx] levoFLOXacin [Levaquin] 750 mg PO DAILY #7 tablet 01/17/17 [Rx] metroNIDAZOLE [Metronidazole] 500 mg PO TID #21 tablet 01/17/17 [Rx] Allergies/Adverse Reactions: 3 Allergy/AdvReac Type Severity Reaction Status Date / Time codeine Allergy Rash Verified 01/10/17 12:48 gabapentin Allergy Anaphylaxis Verified 01/10/17 12:48 Procedures/tests Complete & Pending: Procedures Performed prior 72 hours Category Date Time Status CT abd pelvis w iv and oral [CT] Stat Cat Scan 01/16/17 14:30 Completed US gall bladder [US] Stat Exams 01/15/17 08:33 Completed US retroperitoneal limited [US] Routine Exams 01/17/17 11:06 Ordered Date of admission: 01/13/17 03:19 Primary care physician: Justin Burroughs MD Consults: 01/14/17 17:07 Consult to Hospitalist [CONS] Routine Consulting Provider: Hospitalist Shaun Reason for Consult: Patient here with acute [place] . Please see for fever, abdominal pain, abnormal UA, anemia, hematuria Call Completed: Yes 01/15/17 10:21 Consult to Gastroenterology [CONS] Routine Consulting Provider: Gastroenterology Winsome Reason for Consult: epigastric pain, acute blood loss anemia, dark stool Time Notified: 10:22 Call Completed: Yes Discharging clinician: Tyler Gonzalez Anticipated date of discharge: 01/17/17 - Patient Status Disposition: Home, Self-Care Condition: Fair Functional capacity at discharge: independent ambulation Overall status at discharge: patient is progressing back to baseline - Discharge Instructions Follow Up With: Justin Burroughs MD [Primary Care Provider] - (Schedule in one week) Wallace Yip MD [Partnered Physician] - (Out-pt f/u will be coordinated by [facility]) Jovan Ng DO [Partnered Physician] - (1-2 weeks f/u for GI s/p colonoscopy) Additional Instructions: RISK FACTORS: STOP SMOKING: If you smoke, STOP. Smoking or tobacco use significantly increases your risk of heart disease because nicotine causes the arteries to narrow or constrict. It also causes fats to stick to the artery. Your chances of having a heart attack are greatly increased if you continue to smoke. For more information, call the education line for smoking cessation 3-813-ZUBCEKZ EAT A LOW FAT/CHOLESTEROL/SODIUM DIET: This diet may help reduce your chances of having a heart attack. LIFTING: Avoid lifting anything more than 10 pounds for 5-7 days Prior to straining, laughing, sneezing and/or coughing, apply manual pressure directly over insertion site. ACTIVITY: You may walk or climb stairs as tolerated You can resume sexual activity as tolerated In general, you are encouraged to engage in a minimum of 30 minutes or more of moderate intensity physical activity, such as brisk walking, daily or at least 3 -4 times weekly BATHING Do not submerge the site into water (bath tub, hot tub, swimming pool) for 1 week. This can be a source for infection into the blood stream. You may shower after 24 hours SITE CARE: After 24 hours, you may remove the dressing and leave the site open to air. Keep the site clean and dry. Clean gently and pat dry. You can expect bruising and tenderness that gradually resolve within a week or two. Return to work as instructed per your physician Resume driving as instructed per physician Keep all scheduled follow up appointments Resume medications as instructed IMPORTANT: If prescribed a Platelet Aggregation Inhibitor such as, Plavix, Brilinta or Effient: Duration of therapy is minimum one year These medications are often used in combination with Aspirin in prevention of future heart attacks Never discontinue unless consult with your Rural Sociologist STROKE (CVA) Risk factors for a stroke are: Age, cigarette smoking, diabetes, excessive alcohol consumption, family history, high blood pressure, overweight, physical inactivity, prior stroke, heart attack, diagnosis of carotid artery stenosis or other artery disease. Warning signs: Sudden numbness or weakness of the face, arm or leg; especially on one side of the body, sudden confusion, trouble speaking or understanding, sudden trouble seeing in one or both eyes, sudden trouble walking, dizziness, loss of balance or coordination, sudden severe headache with no cause. Call 911 or go to the Emergency Room. CONGESTIVE HEART FAILURE: If you have been diagnosed with Congestive Heart Failure (CHF) and your symptoms return, make an appointment with your physician Weigh yourself daily. Notify your physician if you have a weight gain of two or more pounds in one day or five or more pounds in one week. If you experience any difficulty breathing, please call 911 BLEEDING: Although the risk of bleeding is minimal, it can happen. If you have any bleeding from the site, apply firm pressure above the puncture site for 10-15 minutes. If the bleeding does not stop, continue manual pressure and call 911 Contact your physician if: You develop a fever greater than 101 degrees Fahrenheit Your site becomes reddened or has any drainage You have an increase in pain or burning at the site or if a large knot forms at the site. If you experience chest pain, shortness of breath, dizziness, or extreme tiredness, stop the activity and rest. Please notify your physicians office if you experience any of these symptoms and they are not relieved by rest please call 911! - Diet and Activity Activity: increase activity as tolerated Diet: low fat, low cholesterol - Hospital Course Hospital course: Ms. Valverde is a 71 year old female with a history of hypertension, DM type II who presented as an acute [place]. She is S/p emergent LHC for STEMI having undergone PCI with DWAYNE to her ostial and mid RCA with residual 70-80% stenosis in her mLAD planned for a staged PCI as outpatient. Out-patient cath will be coordinated by Dr. Yip. No complication with right femoral access site. TTE shows preserved LVEF with no significant valvular disease. Patient will require 12 months of DAPT with asa and brilinta. She voiced understanding. Free 30 day card given for brilinta. Continue Imdur, BB and statin. Started on lisinopril for better b/p control. Lisinopril increased today. Hospital stay was complicated by acute anemia. IM consulted for GI work-up and hospitalist consulted for fever and abdominal pain. Patient underwent EGD and colonoscopy and no acute bleeding seen. She was seen to have iron deficiency anemia and given IV iron infusion. She was started started on oral iron supplement. CT scan of the abdomen showed thickening of the bowel wallof the descending colon and she was started on a course of metrondiazole for seven days. She was also diagnosed with UTI and started on levaquin IV and converted to oral. Abdominal US did show gall bladder thickening but no stones. She was recommended for out- pt f/u for her gall bladder. She was cleared from a anemia standpoint by hospitalist for d/c home. She is chest pain free. there was no complications from her right groin access site. Activity restrictions reviewed as stated above. She was instructed to check CBC this tuesday. - Time Spent with Patient Total time spent providing and/or coordinating discharge services: Physical Examination Vital Signs, Last 4 Hours Temp Pulse Resp BP Pulse Ox 01/17/17 11:31 98.2 F 70 15 154/68 98 Echocardiogram 01/13/17 03:19 Impressions: LVEF 60-65%. Normal LV chamber size, wall thickness and overall function. Mild segmental left ventricular systolic dysfunction. Mild left ventricular diastolic dysfunction. Normal right ventricular structure and function. No evidence of pulmonary hypertension. No significant valvular dysfunction. Left Ventricular Wall Motion: Rest Echo Findings The basal inferior wall was hypokinetic. All other wall segments showed normal motion. Findings: Study Quality * Technically adequate exam. ECG Findings * Normal sinus rhythm. Left Ventricle * LVEF 60-65%. * Normal LV chamber size, wall thickness and overall function. * Mild segmental left ventricular systolic dysfunction. * Mild left ventricular diastolic dysfunction. Right Ventricle * Normal right ventricular structure and function. Left Atrium * Mildly dilated left atrium. Right Atrium * Normal right atrial size. Interatrial Septum * Interatrial septum not well evaluated. Aortic Valve * Trileaflet aortic valve with normal function. * No aortic regurgitation. * No aortic stenosis. Mitral Valve * Normal mitral valve structure and function. * No mitral stenosis. * No mitral regurgitation. Tricuspid Valve * Normal tricuspid valve structure and function. * Trace tricuspid regurgitation. * No evidence of pulmonary hypertension. Pulmonic Valve * Normal pulmonic valve structure and function. * Trace pulmonic regurgitation. Aorta * Normally sized aortic root. Pericardium * The pericardium appears normal. IVC * Normal IVC dimensions and inspiratory collapse. Pulmonary Artery * Normal visualized portions of the main pulmonary artery. Chest X-Ray 01/14/17 20:40 IMPRESSION: Suspect small right effusion. Otherwise, no evidence of pneumonia or any other acute cardiopulmonary abnormality. D/ / Smai Robles / Sami Robles Interpreting Provider: Sami Robles Gallbladder Ultrasound 01/15/17 08:33 IMPRESSION: Thickened edematous appearing gallbladder wall. No gallstones identified. Correlate for clinical symptoms of acalculous cholecystitis. D/ / Troy Schumacher MD / Troy Schumacher MD Interpreting Provider: Troy Schumacher MD Abdomen/Pelvis CT 01/16/17 14:30 IMPRESSION: Bowel wall thickening of the descending colon with mild prominence of the enhancement pattern. While findings may be accentuated by incomplete distention, findings concerning for colitis, given patient history. Thickened somewhat abnormal appearance of the bladder with air within the bladder. Please correlate with any recent catheterization. Otherwise consider a gas-forming organism. Recommend correlation with urinalysis results. Thickening of the wall of the gallbladder. Recommend follow-up right upper quadrant ultrasound. Stranding and mild adenopathy within the upper abdomen likely reactive in nature. Scattered ground-glass and dependent opacities and at the lung bases likely postinflammatory or infectious. Recommend follow-up to resolution. Small bilateral pleural effusions are noted. D/ / 01/16/2017 15:59:05 Justen Polo MD / chano Interpreting Provider: Justen Polo MD General: Conversant, No Apparent Distress HEENT: Atraumatic, Normocephaly, Mucus Membranes Moist Neck: No JVD, Normal carotid pulses Cardiac: Reg Rate and Rhythm, Normal S1 and S2, No Murmur Lungs: Normal Breath Sounds, No Wheeze, Rales, Rhonchi Neuro: Alert and responsive, No focal deficits noted Abdomen: Soft, Other (mildly tender) Skin: No rashes noted on visualized skin Musculoskeletal: No Chest Wall Tenderness Extremities: No Clubbing, No Cyanosis, No Edema, Normal Pulses, Other (right groin soft without hematoma. ) - VTE Documentation of Mechanical Device: Intermittent pneumatic compression device
[2017-01-18] MEDS ORDERED: levoFLOXacin 750 MG TABLET PO SCH (09:00)
[2017-01-18] MEDS ORDERED: Lisinopril 20 MG TABLET PO SCH (09:00)
== END 2017-01-17 18:04 | disposition home or self-care (01) | DRG 247 ==
LOC: EMEROO 01:14 → ICNU 01:14 → EMEROO 02:02 → ICNU 02:22 → 2NENU 01-15 05:38
PROVIDERS: ADMIT Emergency Medicine; ATTEND Internal Medicine

== ENCOUNTER 2017-08-03 00:36 | Inpatient (IN) ==
[2017-08-03] MEDS ORDERED: GI Cocktail 40 ML EACH PO ONE (01:11)
[2017-08-03 01:18] LABS: Basophils # 0.1 K/mcL (0.0-0.2); Basophils % 0.6 %; Eosinophils # 0.3 K/mcL (0.0-0.6); Eosinophils % 3.2 %; Hematocrit 32.5 % (35.3-44.9); Hemoglobin 11.2 g/dL (11.5-15.4); Immature Granulocytes % 0.5 % (0-4); Lymphocytes # 3.5 K/mcL (0.6-4.6); Lymphocytes % 33.3 %; Mean Corpuscular HGB Conc 34.5 g/dL (31.6-35.5); Mean Corpuscular Hemoglobin 32.2 pg (28.0-33.3); Mean Corpuscular Volume 93.4 fL (83.0-100.0); Mean Platelet Volume 10.6 fL (9.4-12.4); Monocytes # 0.9 K/mcL (0.0-1.3); Monocytes % 8.9 %; Neutrophils # 5.7 K/mcL (1.6-8.9); Platelet Count 319 K/mcL (140-400); Red Blood Count 3.48 M/mcL (3.82-4.97); Red Cell Distribution Width 13.1 % (11.5-14.5); Segmented Neutrophils % 53.5 %
[2017-08-03] MEDS: Nitroglycerin 25 MG/250 ML INFUS..BTL IVC SCH (01:18)
--- NOTE | 2017-08-03 01:19 | Emergency Department Note ---
Disposition Clinical Impression: NSTEMI (non-ST elevated myocardial infarction) Disposition: Admitted As Inpatient Condition: Good Referrals: Justin Burroughs MD [Primary Care Provider] - Forms: ED Satisfaction Letter Time of Disposition: 01:50 Chest Pain HPI - General Chief Complaint: ED Chest Pain Stated Complaint: CP Time Seen by Provider: 08/03/17 00:46 Source: patient Limitations: no limitations Vital Signs Reviewed: Yes Nursing Notes Reviewed: Yes - History of Present Illness HPI Narrative: Left sided chest pain that began around 9 PM. Describes it is sharp in nature. No provoking or resolving factors. Does have associated shortness of breath with this. Started while she was at rest. Did not wake her from sleep. States it feels similar to her previous SD in December. Severity scale (1-10): 10 - Related Data Home Medications Medication Instructions Recorded Confirmed Aspirin [Lo-Dose Aspirin EC] 81 mg PO DAILY 08/03/17 08/03/17 Atorvastatin [Lipitor] 40 mg PO HS 08/03/17 08/03/17 Dexlansoprazole [Dexilant] 60 mg PO DAILY 08/03/17 08/03/17 Insulin ASPART [Novolog Flexpen] 0 unit SQ TIDWM PRN 08/03/17 08/03/17 Insulin Glargine,Hum.rec.anlog 8 unit SQ QPM 08/03/17 08/03/17 [Lantus Solostar] Lisinopril-HCTZ 20-12.5 [Prinzide 1 tab PO DAILY 08/03/17 08/03/17 20-12.5] Oxycodone HCl/Acetaminophen 1 tab PO Q8H PRN 08/03/17 08/03/17 [Percocet 10-325 mg Tablet] Ticagrelor [Brilinta] 90 mg PO BID 08/03/17 08/03/17 amLODIPine [Norvasc] 5 mg PO DAILY 08/03/17 08/03/17 Allergies Allergy/AdvReac Type Severity Reaction Status Date / Time codeine Allergy Rash Verified 08/03/17 00:41 gabapentin Allergy Rash Verified 08/03/17 00:41 All systems ED: reviewed and negative except as stated. Constitutional: Denies: fever, chills Cardiovascular: Reports: chest pain. 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 Absent: scleral icterus - ENT ENT exam: normal exam, normal oropharynx, mucous membranes moist - Neck Neck exam: Present: normal inspection, full ROM. Absent: trachea midline - Chest Chest inspection: Present: normal inspection, symmetric chest wall rise - Respiratory Respiratory exam: Present: normal lung sounds bilaterally. Absent: respiratory distress, accessory muscle use - Cardiovascular Cardiovascular exam: Present: regular rate, normal rhythm, normal heart sounds - Abdominal Exam Abdominal exam: Present: soft, Non-Tender. Absent: tenderness, organomegaly - Extremities Exam Extremities exam: Present: normal inspection, pedal edema - Back Exam Back exam: Present: normal inspection, full ROM. Absent: tenderness - Neurological Exam Neurological exam: Present: alert, oriented X3 - Psychiatric Psychiatric exam: Present: normal affect, normal mood - Skin Skin exam: Present: warm, dry, intact, normal color Course Course Narrative: Female patient presenting to the emergency department with a complaint of left sided chest pain. She describes it as sharp in nature. Has associated shortness of breath. Did have an SD in December with 4 stents placed states it feels the same as that. She has no provoking or alleviating factors. Denies any recent illnesses. Patient is resting comfortably in bed. Does not appear to be in respiratory distress at this time. She is going left side of her chest. She is also endorsing a burning sensation in her throat. She states that she has an EGD scheduled soon. States that she has had an increase in acid reflux recently. The left sided chest pain does not appear to be associated with the burning sensation down the middle of her throat at this time. We will give her a GI cocktail to assist with that as well as provide her with full dose aspirin. We will get a cardiac workup on patient. Patient does have new ST depressions in leads V2 V3 and V4. This is concerning for ischemia. We will complete the workup and admit patient to the hospital. - Reevaluation(s) Reevaluation #1: Patient is in an STEMI. We will start her on a heparin drip at this time. She did have a repeat EKG that showed some mild but not complete resolution of the ST depressions in leads V2 V3 and V4. We will admit her to the hospital for nSTEMI. Time: 01:55 - Consultations Consultation #1: Dr Simons accepted Pt in stable condition. Time: 01:53 Vital Signs Temperature 97.6 F 08/03/17 00:39 Pulse Rate 94 08/03/17 00:39 Respiratory Rate 20 08/03/17 00:39 Blood Pressure 208/76 08/03/17 00:39 O2 Sat by Pulse Oximetry 100 08/03/17 00:39 Temperature 97.6 F 08/03/17 01:03 Pulse Rate 82 08/03/17 06:30 Respiratory Rate 16 08/03/17 02:13 Blood Pressure 168/77 08/03/17 06:30 O2 Sat by Pulse Oximetry 99 08/03/17 06:30 Oxygen Delivery Oxygen Delivery Room Air Chest Pain - Medical Records Medical records reviewed: Yes I reviewed the patient's medical records. - Lab Data Lab results reviewed: Yes I reviewed the patient's lab results. Result diagrams: 08/03/17 01:01 08/03/17 01:01 Lab Results 08/03/17 08/03/17 08/03/17 Range/Units 01:01 01:01 01:01 WBC 10.6 (4.3-11.1) K/mcL RBC 3.48 L (3.82-4.97) M/mcL Hgb 11.2 L (11.5-15.4) g/dL Hct 32.5 L (35.3-44.9) % MCV 93.4 (83.0-100.0) fL MCH 32.2 (28.0-33.3) pg MCHC 34.5 (31.6-35.5) g/dL RDW 13.1 (11.5-14.5) % Plt Count 319 (140-400) K/mcL MPV 10.6 (9.4-12.4) fL Immature Gran % 0.5 (0-4) % Seg Neutrophils % 53.5 % Lymphocytes % 33.3 % Monocytes % 8.9 % Eosinophils % 3.2 % Basophils % 0.6 % Neutrophils # 5.7 (1.6-8.9) K/mcL Lymphocytes # 3.5 (0.6-4.6) K/mcL Monocytes # 0.9 (0.0-1.3) K/mcL Eosinophils # 0.3 (0.0-0.6) K/mcL Basophils # 0.1 (0.0-0.2) K/mcL PT 9.6 (9.4-12.1) Seconds INR 0.9 APTT 30.3 (26.0-36.0) Seconds Sodium 136 (136-145) mEq/L Potassium 4.0 (3.5-5.1) mEq/L Chloride 101 (98-107) mEq/L Carbon Dioxide 22 L (23-29) mEq/L BUN 27 H (8-23) mg/dL Creatinine 1.40 H (0.60-1.20) mg/dL Est GFR ( Amer) 45 L (> 60) Est GFR (Non-Af Amer) 37 L (> 60) BUN/Creatinine Ratio 19 (6-26) Glucose 173 H (70-105) mg/dL Calculated Osmolality 291 (280-300) Calcium 9.6 (8.6-10.3) mg/dL Troponin I 0.04 H* (< 0.04) ng/mL - Radiology Data Radiology results reviewed: Yes I reviewed the patient's radiology results. - EKG Data EKG attestation: Yes I reviewed and interpreted this EKG. EKG results narrative: Chest X-Ray 08/03/17 00:43 IMPRESSION: No significant findings in the chest. D/ / Eder Deras MD / Eder Deras MD Interpreting Provider: Eder Deras MD Attestation Statement - Attestation Attestation: I examined this patient and my medical decision-making was reviewed with the Resident Physician. I agree with the documented findings, disposition and treatment plan as described except to the extent set forth below. Findings consistent with NSTEMI. Ischemic changes on EKG, these seem to be resolving on repeat EKG.Will start heparin, admit to hospitalist service.
[2017-08-03 01:35] LABS: INR 0.9; Prothrombin Time 9.6 Seconds (9.4-12.1)
[2017-08-03 01:36] LABS: Calcium 9.6 mg/dL (8.6-10.3)
[2017-08-03 01:38] LABS: Activated Partial Thrombo Time 30.3 Seconds (26.0-36.0); Troponin I 0.04 ng/mL (< 0.04)
[2017-08-03] MEDS ORDERED: *HR* Heparin 5,000 UNIT/ML VIAL IVP PRN ×2 (01:50)
[2017-08-03] MEDS ORDERED: *HR* Heparin 5,000 UNIT/ML VIAL IVP ONE (01:50)
[2017-08-03] MEDS: Heparin 25,000 UNIT/500 ML D5W 25,000 UNIT/500 ML BAG IVC SCH (02:06)
--- NOTE | 2017-08-03 02:51 | Event Note ---
Date of Encounter: 08/03/17 Time of Encounter: 02:44 Patient was seen and examined. I agree with the H&P as written by the Resident Physician. Briefly, patient is 71 yo F with history of CAD with stents placed in Dec, 2016 , HTN, DM, CKD, GERD who returns for evaluation of chest pain started around 9 PM with no inciting event. Was watching TV. Radiates to left upper ext and left jaw and neck. Associated shortness of breath. Feels similar to previous LA in December. In the ED the patient was noted to have ST depressions in leads V2, V3, V4. Received a full dose aspirin. She also received a GI cocktail as well as suspected initially that this may have been due to GI symptoms. Troponins were at 0.04 in the ED. Due to her elevated troponins and EKG changes, the patient was treated as an NSTEMI and was started on heparin drip. She was also started on a nitroglycerin drip. Repeat EKG showed slightly less ST depressions in the above leads. The patient was also noted to be hypertensive with initial presentation blood pressure of 208/76. By the time I evaluated the patient she was down to the 180s systolically. A/Ox3, NAD RRR. S1, S2, No m/r/g CTAB Abd soft,NT, ND, +BS No edema. 2+ DP Nonfocal Admit to hospitalist on telemetry Continue heparin drip and consult cardiology Continue nitroglycerin drip Trend cardiac enzymes Check a limited echo Nothing by mouth Resume home cardiac meds Resume home antihypertensives and continue nitroglycerin drip Sliding scale insulin DVT prophylaxis
--- NOTE | 2017-08-03 03:13 | Internal Med History&Physical ---
Date of Encounter: 08/03/17 Time of Encounter: 03:03 Internal Medicine - H&P: HPI Chief complaint: chest pain Admitted From: Home Plans for Post Hospital Care: Home History of present illness: Ms. Valverde is a 71 year old female with a past medical history of hypertension , diabetes, hyper-thyroidism, PVD of right lower extremity, and CBD with stents placed 01/21/17 on Brilinta and Aspirin who presented to the ED with new onset chest pain. Patient's chest pain began at 11 PM this evening and she describes it as a stabbing pain on the left side that radiates into her shoulder with left arm tingling. Worsened by walking. Denies associated sweating or shortness of breath. She states that the pain is similar to her heart attack in December. But also thought that the pain could be due to heartburn and she was burping and took Tums which did not help the pain. Patient follows up with Dr. Fair. States that she is compliant with her medications but has missed a Brilinta dose 2-3 times this last month. In the ED, EKG showed ST depression in V2 -V4 and a troponin of 0.04. She was started on a Heparin and Nitro drip and her chest pain has been improving. Cardiac studies: Cath 01/21/17 - drug eluding stent placed in mid LAD and proximal OM Echo - prior to cath, EF 60-65%, basal inferior wall hypokinetic Past Med Surg Social Fam HX - Past Medical History Source: patient, old records reviewed Medical history: coronary artery disease, diabetes, hyperlipidemia, hypertension , myocardial infarction, peripheral artery disease, renal disease, thyroid disease (hyperthyroidism), other Additional medical history: gout Psychiatric history: anxiety - Past Surgical History Surgical History: other Additional surgical history: mid LAD and prox OM drug eluding stents - Social History Smoking Status: Never smoker Smokeless Tobacco Status: No Alcohol use: none Drug use: none - Family History Maternal Living Status: Cause of : [place] Paternal Living Status: Cause of : [place] Internal Medicine - H&P: Meds Insulin Glargine,Hum.rec.anlog [Lantus Solostar] 5 - 10 unit SQ HS 01/13/17 [ History] Oxycodone HCl/Acetaminophen [Endocet 10-325 mg Tablet] 1 tab PO Q8H PRN [History] glyBURIDE [GlyBURIDE] 5 mg PO DAILY 01/13/17 [History] Aspirin 81 mg PO DAILY #30 tab.chew 01/17/17 [Rx] Carvedilol [Coreg] 25 mg PO BIDWM #60 tablet 01/17/17 [Rx] Ferrous Sulfate 325 mg PO BIDWM #60 tablet 01/17/17 [Rx] Lisinopril [Zestril] 20 mg PO DAILY #30 tablet 01/17/17 [Rx] Nitroglycerin 0.4 mg SL Q5MIN PRN #25 tab.subl 01/17/17 [Rx] Omeprazole [PriLOSEC] 20 mg PO BIDAC 30 Days #60 capsule.dr 01/17/17 [Rx] Rosuvastatin [Crestor] 40 mg PO HS #30 tablet 01/17/17 [Rx] Ticagrelor [Brilinta] 90 mg PO BID #60 tablet 01/17/17 [Rx] metroNIDAZOLE [Metronidazole] 500 mg PO TID #21 tablet 01/17/17 [Rx] Furosemide [Lasix] 20 mg PO DAILY 01/21/17 [History] metFORMIN [Glucophage] 500 mg PO BIDWM 01/21/17 [History] Ascorbic Acid 04/27/17 [History] Atorvastatin Calcium 04/27/17 [History] Cefdinir 04/27/17 [History] Cyclobenzaprine HCl 04/27/17 [History] Famotidine 04/27/17 [History] Lantus Solostar 04/27/17 [History] Novolog Flexpen 04/27/17 [History] PredniSONE [Deltasone] 20 mg PO DAILY #12 tablet 04/27/17 [Rx] Zestoretic 20-12.5 mg Tablet 04/27/17 [History] Amoxicillin [Amoxil] 1,000 mg PO TID #30 capsule 06/02/17 [Rx] 3 Allergy/AdvReac Type Severity Reaction Status Date / Time codeine Allergy Rash Verified 08/03/17 00:41 gabapentin Allergy Rash Verified 08/03/17 00:41 All Systems PM: A 10-system review of systems was performed and is negative for pertinent findings except as documented above in the HPI. - Constitutional Vitals: Temp Pulse Resp BP Pulse Ox 97.6 F 86 16 180/81 98 08/03/17 01:03 08/03/17 02:13 08/03/17 02:13 08/03/17 02:13 08/03/17 02:13 Exam: Constitutional: Alert, in no acute distress, well nourished, well developed. Head: Normocephalic, atraumatic, Heart: Normal, regular rate and rhythm, no murmurs Lungs: Clear to auscultation, no wheezes, rales, or rhonchi Abdomen: Soft, nondistended, nontender, and no masses palpable, no guarding or rigidity. Extremities: No clubbing, cyanosis, or edema, radial pulse +2/4, capillary refill <2sec. Skin: Skin warm and dry, no lesions, no rashes, no jaundice Neurologic: no focal deficits, strength within normal limits in all extremities Psych: Cooperative with exam, good eye contact, cognitive function intact, judgment good insight good, speech clear, thought process logical, and goal directed Internal Med - H&P Results - Labs CBC & Chem 7: 08/03/17 01:01 08/03/17 01:01 Labs: Short CBC 08/03/17 Range/Units 01:01 WBC 10.6 (4.3-11.1) K/mcL Hgb 11.2 L (11.5-15.4) g/dL Hct 32.5 L (35.3-44.9) % Plt Count 319 (140-400) K/mcL Neutrophils # 5.7 (1.6-8.9) K/mcL BMP 08/03/17 01:01 Sodium 136 Potassium 4.0 Chloride 101 Carbon Dioxide 22 L BUN 27 H Creatinine 1.40 H Glucose 173 H Calcium 9.6 Cardiac Enzymes 08/03/17 Range/Units 01:01 Troponin I 0.04 H* (< 0.04) ng/mL - Impressions ITS Impressions Chest X-Ray 08/03/17 00:43 IMPRESSION: No significant findings in the chest. D/ / Eder Deras MD / Eder Deras MD Interpreting Provider: Eder Deras MD - Assessment and plan (1) NSTEMI (non-ST elevated myocardial infarction) Current Visit: Yes Status: Acute Assessment and plan: EKG showed ST-depression in leads V2-V4 with an elevated troponin of 0.04. Patient placed on Heparin and nitro drip. Chest pain improving. Plan: - Continue Heparin drip - continue home Aspirin, Brilinta, lisinopril, atorvastatin, Coreg - Echo ordered - continue to trend troponin Q6hrs - cardio consult in the AM - lipid panel - telemetry (2) RODRÍGUEZ (acute kidney injury) Current Visit: Yes Status: Acute Assessment and plan: History of elevated creatinine. Slightly higher than normal. Will continue to monitor. (3) Hypertension Current Visit: No Status: Acute Assessment and plan: Initially 208/76 and has decreased to 130/65. Concerns for dropping too fast with the nitro drip. Will decrease nitro drip and Continue home medications. Plan: - continue home meds - prn hydralazine 10mg Q6hrs Qualifiers: Hypertension type: essential hypertension Qualified Code(s): I10 - Essential (primary) hypertension (4) Diabetes mellitus, type II Current Visit: No Status: Chronic Assessment and plan: Plan: - medium sliding scale Q6hrs - currently NPO - A1c Qualifiers: Diabetes mellitus half-way insulin use: without half-way use Diabetes mellitus complication status: without complication Qualified Code(s): E11.9 - Type 2 diabetes mellitus without complications (5) DVT prophylaxis Current Visit: No Status: Acute Assessment and plan: On a heparin drip - Time Spent With Patient Total time spent is greater than 50% in coordination of care (as documented) at patient's floor/unit and/or counseling patient:
[2017-08-03] MEDS ORDERED: Naloxone 0.4 MG/ML INJ IVP PRN (04:08)
[2017-08-03] MEDS ORDERED: Acetaminophen 325 MG TABLET PO PRN (04:08)
[2017-08-03] MEDS ORDERED: D5% in Water 1,000 ML IVC PRN (04:11)
[2017-08-03] MEDS ORDERED: *HR* Dextrose 50 % in Water (Syg) 50 ML SYRINGE IVP PRN (04:11)
[2017-08-03] MEDS ORDERED: Dextrose Gel 15 GM/37.5 ML TUBE PO PRN ×2 (04:11)
[2017-08-03 07:49] LABS: Chol/HDL Ratio 2.1 (0-4.9)
[2017-08-03 08:27] LABS: Estimated Average Glucose 171 mg/dl; Hemoglobin A1C 7.6 %
[2017-08-03] MEDS ORDERED: amLODIPine 5 MG TABLET PO SCH (09:00)
--- NOTE | 2017-08-03 09:46 | Cardiology Consult Note ---
Date of Encounter: 08/03/17 Time of Encounter: 09:10 Assessment and Plan (1) Elevated troponin Current Visit: Yes Status: Acute Troponin 0.04, 0.16 in the setting of severely elevated BP, mild RODRÍGUEZ. NSTEMI type I vs. II. Reports pain similar to prior NC presentation. Pain free upon exam. Continue to trend troponin. Continue heparin gtt, asa, statin. Has not been able to tolerate BB d/t bradycardia. Check echocardigram. Will make NPO after MN tonight. Will continue to follow, further recommendations to follow. (2) CAD (coronary artery disease) Current Visit: Yes Status: Acute Plan as above. Hx of STEMI 2017 s/p PCI RCA, later had staged PCI to LAD, OM1. Asa, statin. Uninterrupted DAPT x1 year following DWAYNE (joeyilincassy stephen). Has not been able to tolerate BB in the past d/t bradycardia. Qualifiers: Coronary Disease-Associated Artery/Lesion type: [place] artery [place] vs. transplanted heart: [place] heart Associated angina: with unstable angina Qualified Code(s): I25.110 - Atherosclerotic heart disease of [place] coronary artery with unstable angina pectoris (3) Hypertension Current Visit: No Status: Acute Blood pressure severely elevated upon arrival, 208/76. Remains poorly controlled today. Patient reports compliance with all medications. Will increase norvasc today. Has not been on BB d/t bradycardia. Continue to monitor tele, consider addition of low dose betablocker if able. Qualifiers: Hypertension type: essential hypertension Qualified Code(s): I10 - Essential (primary) hypertension (4) RODRÍGUEZ (acute kidney injury) Current Visit: Yes Status: Acute Mild RODRÍGUEZ noted, SCr 1.4 today. Hx of CKD-3. Prior SCr has been normal, 1.04 (June 2017) and 0.99 (May 2017). Gentle IVF ordered. Discussion w patient/family: The assessment and plan as outlined above was discussed with the patient and/or family members who expressed understanding and agreement. All questions were answered. Thank you for involving us in the care of your patient. Please call with any questions. The patient will be discussed and reviewed with Dr. Fair; changes to be made accordingly. History of Present Illness Consult date: 08/03/17 Requesting physician: Eva Alvarez Consult reason: Elevated troponin Chief complaint: Chest pain History of present illness: Ms. Valverde is a 71 year old female with PMHx significant for CAD s/p NC ( STEMI ), PVD, HTN, CKD-3, HLD, DMII, and hypothyroidism who presented to the ED with complaints of chest discomfort that started yesterday evening while watching TV. Reports discomfort similar to prior NC presentation. Left- sided chest discomfort described as sharp, stabbing pain that radiates to left shoulder with associated left arm numbness and tingling. Reports may have missed 2-3 doses of brilinta last month. Patient reports symptoms lasted for several hours which prompted ED evaluation. Discomfort resolved after NTG administration in the ED. Initial troponin was 0.04 then 0.16. Blood pressure was severely elevated upon arrival, SBP 208/76. ST depression noted on initial ECG. Prior CV testing: TTE 12/2016: LVEF 60-65%, normal RV size and function, mild LVDD [facility] 01/13/17: s/p successful PTCA/DWAYNE to RCA ostial stenosis and PTCA/DWAYNE to mRCA stenosis; otherwise 40% pLAD, 70-80% mLAD; 70-80% OM1 stenosis, and 50% RPDA stenosis. [facility] 01/21/17 (staged): s/p successful PTCA/DWAYNE to LAD and OM1 Past Med Surg Social Fam HX - Past Medical History Attestation: Yes The following information was validated with the patient. Medical history: coronary artery disease, diabetes, hyperlipidemia, hypertension , myocardial infarction, peripheral artery disease, renal disease Additional medical history: gout Psychiatric history: anxiety - Past Surgical History Surgical History: angioplasty/stent Additional surgical history: mid LAD and prox OM drug eluding stents - Social History Smoking Status: Never smoker Smokeless Tobacco Status: No Alcohol use: none Drug use: none - Family History Maternal Living Status: Cause of : [place] Paternal Living Status: Cause of : [place] Medications and Allergies Aspirin [Lo-Dose Aspirin EC] 81 mg PO DAILY 08/03/17 [History] Atorvastatin [Lipitor] 40 mg PO HS 08/03/17 [History] Dexlansoprazole [Dexilant] 60 mg PO DAILY 08/03/17 [History] Insulin ASPART [Novolog Flexpen] 0 unit SQ TIDWM PRN 08/03/17 [History] Insulin Glargine,Hum.rec.anlog [Lantus Solostar] 8 unit SQ QPM 08/03/17 [History ] Lisinopril-HCTZ 20-12.5 [Prinzide 20-12.5] 1 tab PO DAILY 08/03/17 [History] Oxycodone HCl/Acetaminophen [Percocet 10-325 mg Tablet] 1 tab PO Q8H PRN [History] Ticagrelor [Brilinta] 90 mg PO BID 08/03/17 [History] amLODIPine [Norvasc] 5 mg PO DAILY 08/03/17 [History] 3 Allergy/AdvReac Type Severity Reaction Status Date / Time codeine Allergy Rash Verified 08/03/17 00:41 gabapentin Allergy Rash Verified 08/03/17 00:41 All Systems Review: The remainder of the systems were reviewed and are negative - Cardiovascular Cardiovascular: as per HPI Physical Examination Vital Signs, Last 4 Hours Temp Pulse Resp BP Pulse Ox 08/03/17 09:06 98.5 F 79 16 177/75 98 08/03/17 08:54 18 158/98 General: Conversant, No Apparent Distress HEENT: Atraumatic, Normocephaly, Mucus Membranes Moist Neck: No JVD Cardiac: Reg Rate and Rhythm, Normal S1 and S2 Lungs: Normal Breath Sounds Neuro: Alert and responsive Abdomen: Soft Skin: No rashes noted on visualized skin Musculoskeletal: No Chest Wall Tenderness Extremities: No Edema, Normal Pulses Results 08/03/17 01:01 08/03/17 01:01 Active Medications Acetaminophen (Tylenol) 650 mg PO Q6HR PRN PRN Reason: Mild Pain/Fever Stop: 02/02/18 04:09 Amlodipine Besylate (Norvasc) 5 mg PO DAILY RYAN PRN Reason: Protocol Stop: 02/02/18 09:01 Aspirin (Aspirin Ec) 81 mg PO DAILY RYAN Stop: 02/02/18 09:01 Atorvastatin Calcium (Lipitor) 40 mg PO HS RYAN Stop: 02/02/18 21:01 Dextrose/Water (Dextrose 50% (Syg)) 25 ml IVP AD PRN PRN Reason: Hypoglycemia Stop: 02/02/18 04:12 Glucagon (Glucagen) 1 mg IM ONCE PRN PRN Reason: Hypoglycemia Stop: 02/02/18 04:12 Glucose (Gluctose) 15 gm PO ONCE PRN PRN Reason: Hypoglycemia Stop: 02/02/18 04:12 Glucose (Gluctose) 30 gm PO ONCE PRN PRN Reason: Hypoglycemia Stop: 02/02/18 04:12 Lisinopril/HCTZ (Prinzide 20-12.5) 1 each PO DAILY RYAN Stop: 02/02/18 09:01 Heparin Sodium (Porcine) (Heparin) 3,500 unit 60 unit/kg (3500 unit) IVP Q6HR PRN PRN Reason: SEE COMMENTS Stop: 02/02/18 01:51 Heparin Sodium (Porcine) (Heparin) 1,800 unit 30 unit/kg (1800 unit) IVP Q6H PRN PRN Reason: SEE COMMENTS Stop: 02/02/18 01:51 Hydralazine HCl (Hydralazine) 10 mg IVP Q6HR PRN PRN Reason: Hypertension Stop: 02/02/18 04:07 Nitroglycerin (Nitroglycerin Premix 25 Mg/250 Ml) 25 mg in 250 mls @ 3 mls/hr IVC .Q24H RYAN; 5 MCG/MIN PRN Reason: Protocol Stop: 02/02/18 01:01 Last Titration: 08/03/17 03:47 Dose: 0 mcg/min, 0 mls/hr Heparin Sodium/Dextrose (Heparin 25,000 Unit/500 Ml D5w) 25,000 unit in 500 mls @ 14.043 mls/hr IVC .Q24H RYAN; 12 UNIT/KG/HR PRN Reason: Protocol Stop: 02/02/18 02:01 Last Admin: 08/03/17 02:06 Dose: 12 unit/kg/hr, 14.043 mls/hr Dextrose (Dextrose 5%) 1,000 mls @ 100 mls/hr IVC .Q10H PRN PRN Reason: HYPOGLYCEMIA Stop: 02/02/18 04:12 Insulin Human Lispro (Humalog) 0 units SQ Q6HR RYAN PRN Reason: Protocol Stop: 02/02/18 06:01 Naloxone HCl (Narcan) 0.4 mg IVP Q2MIN PRN PRN Reason: SEE COMMENTS Stop: 02/02/18 04:09 Ticagrelor (Brilinta) 90 mg PO BID RYAN Stop: 02/02/18 09:01 - Imaging and Cardiology Echo: report reviewed Cardiac cath: report reviewed - EKG Interpretation EKG results cardiology: personally reviewed Consult Discharge Plan - Plan Referrals: Justin Burroughs MD [Primary Care Provider] -
[2017-08-03] MEDS ORDERED: 0.9 % Sodium Chloride 1,000 ML IVC SCH (10:30)
[2017-08-03] MEDS: Insulin LISPRO 300 UNITS/3 ML VIAL SQ SCH ×4 (11:10→20:32)
[2017-08-03] MEDS: *HR* Ticagrelor 90 MG TABLET PO SCH ×2 (11:45→20:45)
[2017-08-03] MEDS: Aspirin Enteric Coated 81 MG Tablet PO SCH (11:45)
[2017-08-03] MEDS: Lisinopril-HCTZ 20-12.5mg TABLET PO SCH (13:22)
--- NOTE | 2017-08-03 16:44 | Internal Med Progress Note ---
Date of Encounter: 08/03/17 Time of Encounter: 16:48 - Assessment and plan (1) Elevated troponin Current Visit: Yes Status: Acute Assessment and plan: presented with chest pain. Serial troponin 0.04, 0.16, 0.37. Heparin drip started on arrival. Evaluated by cardiology who recommended better control of BP and echocardiogram. (2) CAD (coronary artery disease) Current Visit: Yes Status: Acute Assessment and plan: per hx STEMI 12/2016 s/p PCI RCA, later had staged PCI to LAD, OM1. Heart is elevated as noted above. Continue heparin drip. Cont home brilinta, asa, statin. No BB due to history bradycardia per cardiology notes. Echocardiogram pending Qualifiers: Coronary Disease-Associated Artery/Lesion type: [place] artery [place] vs. transplanted heart: [place] heart Associated angina: with unstable angina Qualified Code(s): I25.110 - Atherosclerotic heart disease of [place] coronary artery with unstable angina pectoris (3) Hypertension Current Visit: No Status: Acute Assessment and plan: per hx. BP uncontrolled on arrival requiring nitroglycerin drip. Home amlodipine increased with improvement in BP. Monitor BP and titrate PRN Qualifiers: Hypertension type: essential hypertension Qualified Code(s): I10 - Essential (primary) hypertension (4) Diabetes mellitus, type II Current Visit: No Status: Chronic Assessment and plan: per hx. Hgb A1c 7.6%. Holding home oral hyperglycemics. SSI. Monitor blood sugar and titrate PRN Qualifiers: Diabetes mellitus care home insulin use: without termite inspector use Diabetes mellitus complication status: without complication Qualified Code(s): E11.9 - Type 2 diabetes mellitus without complications (5) RODRÍGUEZ (acute kidney injury) Current Visit: Yes Status: Acute Assessment and plan: Gentle IV fluids. Monitor repeat renal function. (6) DVT prophylaxis Current Visit: No Status: Acute Assessment and plan: heparin gtt - Time Spent With Patient Total time spent is greater than 50% in coordination of care (as documented) at patient's floor/unit and/or counseling patient: - Constitutional Vitals: Temp Pulse Resp BP Pulse Ox 98.8 F 74 18 144/71 99 08/03/17 16:07 08/03/17 16:07 08/03/17 16:07 08/03/17 16:07 08/03/17 16:07 General appearance: Present: A&O X 3, no acute distress - Head Head exam: Present: atraumatic, normocephalic - Eye Eye exam: Present: PERRL, conjuntiva pink, sclera anicteric Pupils: Present: PERRL - Neck Neck exam general surgery: Present: supple, trachea midline. Absent: lymphadenopathy - Respiratory Respiratory exam: Present: CTAB. Absent: accessory muscle use, rales, rhonchi, wheezes - Cardiovascular Cardiovascular exam: Present: RRR, +S1, +S2. Absent: diastolic murmur, gallop, rubs, systolic murmur - GI/Abdominal GI/Abdominal exam: Present: normal bowel sounds, soft, no peritoneal signs. Absent: distended, tenderness - Extremities Exam Extremities exam: Present: warm, radial pulses palpable and symmetrical. Absent : calf tenderness, cyanotic, pedal edema - Neurological Exam Neurological exam: Present: CN II-XII intact, oriented X3, no focal deficits. Absent: pronater drift, facial droop, speech deficit - Skin Skin exam: Present: dry, intact Internal Medicine: Result - Labs CBC & Chem 7: 08/03/17 01:01 08/03/17 01:01 Labs: Cardiac Enzymes 08/03/17 Range/Units 15:19 Troponin I 0.37 H* (< 0.04) ng/mL - ABG Interpretation ABG results: PT/INR, D-dimer PT 9.6 Seconds (9.4-12.1) 08/03/17 01:01 Consult Discharge Plan - Plan Referrals: Justin Burroughs MD [Primary Care Provider] -
--- NOTE | 2017-08-03 18:14 | Electrocardiograph Report ---
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
--- NOTE | 2017-08-03 18:14 | Electrocardiograph Report ---
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
[2017-08-04] MEDS: Heparin 25,000 UNIT/500 ML D5W 25,000 UNIT/500 ML BAG IVC SCH (03:47)
[2017-08-04] MEDS: Nitroglycerin 25 MG/250 ML INFUS..BTL IVC SCH (03:47)
[2017-08-04 06:39] LABS: Hematocrit 29.9 % (35.3-44.9); Mean Corpuscular HGB Conc 32.1 g/dL (31.6-35.5); Mean Corpuscular Hemoglobin 31.3 pg (28.0-33.3); Mean Corpuscular Volume 97.4 fL (83.0-100.0); Platelet Count 271 K/mcL (140-400); Red Blood Count 3.07 M/mcL (3.82-4.97); Red Cell Distribution Width 13.2 % (11.5-14.5)
[2017-08-04 06:45] LABS: Hemoglobin 9.6 g/dL (11.5-15.4)
[2017-08-04 07:00] LABS: BUN/Creatinine Ratio 27 (6-26); Blood Urea Nitrogen 28 mg/dL (8-23); Calcium 8.6 mg/dL (8.6-10.3); Carbon Dioxide 25 mEq/L (23-29); Chloride 108 mEq/L (98-107); Chol/HDL Ratio 2.2 (0-4.9); Cholesterol 95 mg/dL (< 200); Glucose 215 mg/dL (70-105); HDL Cholesterol 44 mg/dL (40-59); LDL Cholesterol,Calculated 33 mg/dL (0-99); Magnesium 2.2 mg/dL (1.6-2.6); Osmolality,Calculated 304 (280-300); Potassium 3.9 mEq/L (3.5-5.1); Sodium 141 mEq/L (136-145); Triglycerides 91 mg/dL (< 150); eGFR For African Americans > 60 (> 60); eGFR For Non-African Americans 52 (> 60)
[2017-08-04] MEDS: Insulin LISPRO 300 UNITS/3 ML VIAL SQ SCH ×4 (07:41→21:43)
[2017-08-04] MEDS: Aspirin Enteric Coated 81 MG Tablet PO SCH (07:41)
[2017-08-04] MEDS: Lisinopril-HCTZ 20-12.5mg TABLET PO SCH (07:42)
[2017-08-04] MEDS: *HR* Ticagrelor 90 MG TABLET PO SCH ×2 (07:42→21:37)
[2017-08-04] MEDS: amLODIPine 5 MG TABLET PO SCH (07:42)
--- NOTE | 2017-08-04 10:04 | Cardiology Progress Note ---
Date of Encounter: 08/04/17 Time of Encounter: 10:00 Assessment and Plan (1) Elevated troponin Current Visit: Yes Status: Acute Peak troponin 0.16 in the setting of severely elevated BP, mild RODRÍGUEZ. Suspect demand ischemia. RODRÍGUEZ resolved with IV hydration. Blood pressure control improving, discussed with Dr. Yip, will add long-acting nitrate today for known CAD and to improve BP. TTE demonstrated preserved LVEF with normal wall motion. Chest pain free today. No indication for cardiac rehab at this juncture. Will stop IV heparin gtt (infused >24 hours); will stop IV NTG gtt. Continue DAPT (asa + brilinta), statin. Has not been able to tolerate BB in the past d/t bradycardia. Discussed with Dr. Yip, will arrange for 5-7 day outpatient follow-up. If symptoms recur, consider outpatient ischemic evaluation. No further inpatient testing recommended at this time. (2) CAD (coronary artery disease) Current Visit: Yes Status: Acute Plan as above. Hx of STEMI 2017 s/p PCI RCA, later had staged PCI to LAD, OM1. Asa, statin. Uninterrupted DAPT x1 year following DWAYNE (brilinta, asa). Has not been able to tolerate BB in the past d/t bradycardia. Qualifiers: Coronary Disease-Associated Artery/Lesion type: [place] artery [place] vs. transplanted heart: [place] heart Associated angina: with unstable angina Qualified Code(s): I25.110 - Atherosclerotic heart disease of [place] coronary artery with unstable angina pectoris (3) Hypertension Current Visit: No Status: Acute Blood pressure severely elevated upon arrival, 208/76. Patient reports compliance with all medications. Control has improved, will add long acting nitrate. Has not been on BB d/t bradycardia. Qualifiers: Hypertension type: essential hypertension Qualified Code(s): I10 - Essential (primary) hypertension (4) RODRÍGUEZ (acute kidney injury) Current Visit: Yes Status: Acute Mild RODRÍGUEZ noted, SCr 1.4 upon admission. Hx of CKD-3. Prior SCr has been normal, 1.04 (June 2017) and 0.99 (May 2017). RODRÍGUEZ resolved. Discussion w patient/family: The assessment and plan as outlined above was discussed with the patient and/or family members who expressed understanding and agreement. All questions were answered. Thank you for involving us in the care of your patient. Please call with any questions. The patient will be discussed and reviewed with ; changes to be made accordingly. Subjective Principal diagnosis: Elevated troponin, elevated BP Interval history: Seen and examined. No complaints today upon exam, chest discomfort has resolved. BP control improving. Objective Vital Signs, Last 4 Hours Temp Pulse Resp BP Pulse Ox 08/04/17 09:34 75 12 151/70 98 08/04/17 08:51 78 14 158/64 98 08/04/17 07:37 97.4 F L 79 16 135/64 98 General: Conversant, No Apparent Distress HEENT: Atraumatic, Normocephaly, Mucus Membranes Moist Cardiac: Reg Rate and Rhythm, Normal S1 and S2 Lungs: Normal Breath Sounds Neuro: Alert and responsive Abdomen: Soft Skin: No rashes noted on visualized skin Musculoskeletal: No Chest Wall Tenderness Extremities: No Edema, Normal Pulses Results 08/04/17 06:00 08/04/17 06:00 Lab Results 08/03/17 08/03/17 08/03/17 10:14 15:19 15:19 WBC Hgb Hct Plt Count APTT 90.3 H D 71.1 H Sodium Potassium Chloride Carbon Dioxide BUN Creatinine Glucose Calcium Magnesium Troponin I 0.37 H* 08/03/17 08/04/17 08/04/17 21:43 06:00 06:00 WBC 7.8 Hgb 9.6 L D Hct 29.9 L Plt Count 271 APTT Sodium 141 Potassium 3.9 Chloride 108 H Carbon Dioxide 25 BUN 28 H Creatinine 1.04 Glucose 215 H Calcium 8.6 Magnesium 2.2 Troponin I 0.33 H* 08/04/17 06:00 WBC Hgb Hct Plt Count APTT Sodium Potassium Chloride Carbon Dioxide BUN Creatinine Glucose Calcium Magnesium Troponin I 0.21 H* Active Medications Acetaminophen (Tylenol) 650 mg PO Q6HR PRN PRN Reason: Mild Pain/Fever Stop: 02/02/18 04:09 Amlodipine Besylate (Norvasc) 10 mg PO DAILY [facility] PRN Reason: Protocol Stop: 02/02/18 10:18 Last Admin: 08/04/17 07:42 Dose: 10 mg Aspirin (Aspirin Ec) 81 mg PO DAILY [facility]AN Stop: 02/02/18 09:01 Last Admin: 08/04/17 07:41 Dose: 81 mg Atorvastatin Calcium (Lipitor) 40 mg PO HS [facility] Stop: 02/02/18 21:01 Last Admin: 08/03/17 21:09 Dose: 40 mg Calcium Carbonate (Tums) 1,000 mg PO TID PRN; Protocol PRN Reason: Indigestion Stop: 02/02/18 21:01 Last Admin: 08/04/17 07:41 Dose: 1,000 mg Dextrose/Water (Dextrose 50% (Syg)) 25 ml IVP AD PRN PRN Reason: Hypoglycemia Stop: 02/02/18 04:12 Glucagon (Glucagen) 1 mg IM ONCE PRN PRN Reason: Hypoglycemia Stop: 02/02/18 04:12 Glucose (Gluctose) 15 gm PO ONCE PRN PRN Reason: Hypoglycemia Stop: 02/02/18 04:12 Glucose (Gluctose) 30 gm PO ONCE PRN PRN Reason: Hypoglycemia Stop: 02/02/18 04:12 Lisinopril/HCTZ (Prinzide 20-12.5) 1 each PO DAILY [facility]AN Stop: 02/02/18 09:01 Last Admin: 08/04/17 07:42 Dose: 1 each Hydralazine HCl (Hydralazine) 10 mg IVP Q6HR PRN PRN Reason: Hypertension Stop: 02/02/18 04:07 Dextrose (Dextrose 5%) 1,000 mls @ 100 mls/hr IVC .Q10H PRN PRN Reason: HYPOGLYCEMIA Stop: 02/02/18 04:12 Insulin Human Lispro (Humalog) 0 units SQ ACHS RYAN PRN Reason: Protocol Stop: 02/02/18 17:01 Last Admin: 08/04/17 07:41 Dose: 4 units Isosorbide Mononitrate (Imdur) 30 mg PO DAILY [facility] Stop: 02/03/18 10:16 Naloxone HCl (Narcan) 0.4 mg IVP Q2MIN PRN PRN Reason: SEE COMMENTS Stop: 02/02/18 04:09 Ticagrelor (Brilinta) 90 mg PO BID [facility] Stop: 02/02/18 09:01 Last Admin: 08/04/17 07:42 Dose: 90 mg - Imaging and Cardiology Echo: report reviewed Cardiac cath: report reviewed Other Results: 12 hour tele: avg HR=73. No events noted. - EKG Interpretation EKG results cardiology: personally reviewed Consult Discharge Plan - Plan Referrals: Justin Burroughs MD [Primary Care Provider] -
[2017-08-04] MEDS: Isosorbide MONOnitrate (24 HR) 30 MG TAB.ER.24H PO SCH (11:08)
--- NOTE | 2017-08-04 14:11 | Discharge Summary ---
Date of Encounter: 08/05/17 Time of Encounter: 14:00 - Discharge Diagnosis (1) CAD (coronary artery disease) Priority: Primary Status: Acute Assessment and Plan: 71 year old female with a past medical history of hypertension, diabetes, hyper- thyroidism, PVD of right lower extremity, and CBD with stents placed 01/21/17 on Brilinta and Aspirin who presented to the ED with new onset chest pain. Patient's chest pain began at 11 PM this evening and she describes it as a stabbing pain on the left side that radiates into her shoulder with left arm tingling. she was assessed with NSTEMI and started on heparin and nitro drip. She was seen by cardiology who recommended a TTE. TTE came back showing no acute abnormalities and cardiology recommended patient could be discharged. Imdur was added to her regimen She subsequently began to complain of severe reflux and dysphagia which she she says has been accompanied by a 20 pound weight loss since . GI was consulted and she had an endoscopy done which came back WNl. She was discharged on pepcid and will follow up with her PCP. Greater than 30mins was spent discharging this patient Qualifiers: Coronary Disease-Associated Artery/Lesion type: [place] artery [place] vs. transplanted heart: [place] heart Associated angina: with unstable angina Qualified Code(s): I25.110 - Atherosclerotic heart disease of [place] coronary artery with unstable angina pectoris (2) Hypertension Priority: Secondary Status: Acute Assessment and Plan: per hx. BP uncontrolled on arrival requiring nitroglycerin drip. Home amlodipine increased with improvement in BP. Monitor BP and titrate PRN Comments: Qualifiers: Hypertension type: essential hypertension Qualified Code(s): I10 - Essential (primary) hypertension (3) Diabetes mellitus, type II Priority: Secondary Status: Chronic Qualifiers: Diabetes mellitus [facility] insulin use: without assistant terminal manager use Diabetes mellitus complication status: without complication Qualified Code(s): E11.9 - Type 2 diabetes mellitus without complications (4) DVT prophylaxis Priority: Secondary Status: Acute (5) RODRÍGUEZ (acute kidney injury) Priority: Secondary Status: Acute (6) Elevated troponin Priority: Secondary Status: Acute Hospital course: Ms. Valverde is a 71 year old female - Time Spent with Patient Total time spent providing and/or coordinating discharge services: - Discharge Medications Prescriptions: Calcium Carbonate [Tums] 1,000 mg PO TID PRN #60 tab.chew PRN Reason: Indigestion Famotidine [Pepcid] 40 mg PO DAILY 30 Days #30 tablet Isosorbide MONOnitrate (24 HR) [Imdur] 30 mg PO DAILY #60 tab.er.24h Home Medications: Aspirin [Lo-Dose Aspirin EC] 81 mg PO DAILY 08/03/17 [History] Atorvastatin [Lipitor] 40 mg PO HS 08/03/17 [History] Dexlansoprazole [Dexilant] 60 mg PO DAILY 08/03/17 [History] Insulin ASPART [Novolog Flexpen] 0 unit SQ TIDWM PRN 08/03/17 [History] Insulin Glargine,Hum.rec.anlog [Lantus Solostar] 8 unit SQ QPM 08/03/17 [History ] Lisinopril-HCTZ 20-12.5 [Prinzide 20-12.5] 1 tab PO DAILY 08/03/17 [History] Oxycodone HCl/Acetaminophen [Percocet 10-325 mg Tablet] 1 tab PO Q8H PRN [History] Ticagrelor [Brilinta] 90 mg PO BID 08/03/17 [History] amLODIPine [Norvasc] 5 mg PO DAILY 08/03/17 [History] Calcium Carbonate [Tums] 1,000 mg PO TID PRN #60 tab.chew 08/04/17 [Rx] Famotidine [Pepcid] 40 mg PO DAILY 30 Days #30 tablet 08/04/17 [Rx] Isosorbide MONOnitrate (24 HR) [Imdur] 30 mg PO DAILY #60 tab.er.24h 08/04/17 [ Rx] Allergies/Adverse Reactions: 3 Allergy/AdvReac Type Severity Reaction Status Date / Time codeine Allergy Rash Verified 08/03/17 00:41 gabapentin Allergy Rash Verified 08/03/17 00:41 Date of admission: 08/03/17 08:45 Primary care physician: Justin Burroughs MD - Constitutional Vitals: Temp Pulse Resp BP Pulse Ox 97.9 F 82 14 136/58 98 08/04/17 12:40 08/04/17 12:40 08/04/17 12:40 08/04/17 12:40 08/04/17 12:40 General appearance: Present: A&O X 3, no acute distress - Head Head exam: Present: atraumatic, normocephalic - Eye Eye exam: Present: PERRL, conjuntiva pink, sclera anicteric Pupils: Present: PERRL - Neck Neck exam general surgery: Present: supple, trachea midline. Absent: lymphadenopathy - Respiratory Respiratory exam: Present: CTAB. Absent: accessory muscle use, rales, rhonchi, wheezes - Cardiovascular Cardiovascular exam: Present: RRR, +S1, +S2. Absent: diastolic murmur, gallop, rubs, systolic murmur - GI/Abdominal GI/Abdominal exam: Present: normal bowel sounds, soft, no peritoneal signs. Absent: distended, tenderness - Extremities Exam Extremities exam: Present: warm, radial pulses palpable and symmetrical. Absent : calf tenderness, cyanotic, pedal edema - Neurological Exam Neurological exam: Present: CN II-XII intact, oriented X3, no focal deficits. Absent: pronater drift, facial droop, speech deficit - Skin Skin exam: Present: dry, intact - Patient Status Disposition: Home, Self-Care Condition: Good - Discharge Instructions Instructions: Famotidine (By mouth), Isosorbide Mononitrate (By mouth), Antacid , Calcium and Magnesium (By mouth), Chest Pain (DC), Diabetes Mellitus Type 2 in Adults (DC), Chronic Hypertension (DC) Follow Up With: Justin Burroughs MD [Primary Care Provider] - 08/10/17 9:45 am
[2017-08-04] MEDS ORDERED: GI Cocktail 40 ML EACH PO ONE (14:39)
[2017-08-04] MEDS: Famotidine 20 MG TABLET PO SCH ×2 (14:40→21:37)
--- NOTE | 2017-08-04 16:07 | Internal Med Progress Note ---
Date of Encounter: 08/04/17 Time of Encounter: 13:00 - Assessment and plan (1) Dysphagia Current Visit: Yes Status: Acute Assessment and plan: Pt complained of dysphagia, GERD and weight loss. On pepcid. GI plan for endoscopy in am . NPO from midnight Qualifiers: Dysphagia type: esophageal phase Qualified Code(s): R13.10 - Dysphagia, unspecified (2) CAD (coronary artery disease) Current Visit: Yes Status: Acute Assessment and plan: per hx STEMI 12/2016 s/p PCI RCA, later had staged PCI to LAD, OM1. Heart is elevated as noted above. Had echo done showing no acute abnormalities. Cardio discontinued heparin drip and added imdur. Patient is to continue aspirin and brillinta Qualifiers: Coronary Disease-Associated Artery/Lesion type: [place] artery [place] vs. transplanted heart: [place] heart Associated angina: with unstable angina Qualified Code(s): I25.110 - Atherosclerotic heart disease of [place] coronary artery with unstable angina pectoris (3) Elevated troponin Current Visit: Yes Status: Acute Assessment and plan: presented with chest pain. Serial troponin 0.04, 0.16, 0.37. Heparin drip started on arrival. Evaluated by cardiology who recommended better control of BP and echocardiogram. See #1 (4) Hypertension Current Visit: No Status: Acute Assessment and plan: per hx. BP uncontrolled on arrival requiring nitroglycerin drip. Home amlodipine increased with improvement in BP. Monitor BP and titrate PRN Qualifiers: Hypertension type: essential hypertension Qualified Code(s): I10 - Essential (primary) hypertension (5) Diabetes mellitus, type II Current Visit: No Status: Chronic Assessment and plan: per hx. Hgb A1c 7.6%. Holding home oral hyperglycemics. SSI. Monitor blood sugar and titrate PRN Qualifiers: Diabetes mellitus group home insulin use: without middle or intermediate school principal use Diabetes mellitus complication status: without complication Qualified Code(s): E11.9 - Type 2 diabetes mellitus without complications (6) DVT prophylaxis Current Visit: No Status: Acute Assessment and plan: heparin gtt (7) RODRÍGUEZ (acute kidney injury) Current Visit: Yes Status: Acute Assessment and plan: Gentle IV fluids. Monitor repeat renal function. - Time Spent With Patient Total time spent is greater than 50% in coordination of care (as documented) at patient's floor/unit and/or counseling patient: - Subjective Interval history: No acute events overnight - Constitutional Vitals: Temp Pulse Resp BP Pulse Ox 97.9 F 88 17 117/71 100 08/04/17 12:40 08/04/17 15:04 08/04/17 15:04 08/04/17 15:04 08/04/17 15:04 General appearance: Present: A&O X 3, no acute distress - Head Head exam: Present: atraumatic, normocephalic - Eye Eye exam: Present: PERRL, conjuntiva pink, sclera anicteric Pupils: Present: PERRL - Neck Neck exam general surgery: Present: supple, trachea midline. Absent: lymphadenopathy - Respiratory Respiratory exam: Present: CTAB. Absent: accessory muscle use, rales, rhonchi, wheezes - Cardiovascular Cardiovascular exam: Present: RRR, +S1, +S2. Absent: diastolic murmur, gallop, rubs, systolic murmur - GI/Abdominal GI/Abdominal exam: Present: normal bowel sounds, soft, no peritoneal signs. Absent: distended, tenderness - Extremities Exam Extremities exam: Present: warm, radial pulses palpable and symmetrical. Absent : calf tenderness, cyanotic, pedal edema - Neurological Exam Neurological exam: Present: CN II-XII intact, oriented X3, no focal deficits. Absent: pronater drift, facial droop, speech deficit - Skin Skin exam: Present: dry, intact Internal Medicine: Result - Labs CBC & Chem 7: 08/04/17 06:00 08/04/17 06:00 Labs: Short CBC 08/04/17 Range/Units 06:00 WBC 7.8 (4.3-11.1) K/mcL Hgb 9.6 L D (11.5-15.4) g/dL Hct 29.9 L (35.3-44.9) % Plt Count 271 (140-400) K/mcL BMP 08/04/17 06:00 Sodium 141 Potassium 3.9 Chloride 108 H Carbon Dioxide 25 BUN 28 H Creatinine 1.04 Glucose 215 H Calcium 8.6 Cardiac Enzymes 08/03/17 08/03/17 08/04/17 Range/Units 15:19 21:43 06:00 Troponin I 0.37 H* 0.33 H* 0.21 H* (< 0.04) ng/mL - ABG Interpretation ABG results: PT/INR, D-dimer PT 9.6 Seconds (9.4-12.1) 08/03/17 01:01 Consult Discharge Plan - Plan Instructions: Famotidine (By mouth), Isosorbide Mononitrate (By mouth), Antacid , Calcium and Magnesium (By mouth), Chest Pain (DC), Diabetes Mellitus Type 2 in Adults (DC), Chronic Hypertension (DC) Referrals: Justin Burroughs MD [Primary Care Provider] - 08/10/17 9:45 am Prescriptions: Calcium Carbonate [Tums] 1,000 mg PO TID PRN #60 tab.chew PRN Reason: Indigestion Famotidine [Pepcid] 40 mg PO DAILY 30 Days #30 tablet Isosorbide MONOnitrate (24 HR) [Imdur] 30 mg PO DAILY #60 tab.er.24h
[2017-08-04] MEDS ORDERED: Insulin LISPRO 300 UNITS/3 ML VIAL SQ SCH (22:15)
--- NOTE | 2017-08-05 08:05 | Internal Med Progress Note ---
Date of Encounter: 08/05/17 Time of Encounter: 08:00 - Assessment and plan (1) Dysphagia Status: Acute Assessment and plan: Pt complained of severe dysphagia, GERD and weight loss. On pepcid. GI plan for endoscopy today . NPO from midnight Qualifiers: Dysphagia type: esophageal phase Qualified Code(s): R13.10 - Dysphagia, unspecified (2) CAD (coronary artery disease) Status: Acute Assessment and plan: per hx STEMI 12/2016 s/p PCI RCA, later had staged PCI to LAD, OM1. Had echo done showing no acute abnormalities. Cardio discontinued heparin drip and added imdur. Patient is to continue aspirin and brillinta Qualifiers: Coronary Disease-Associated Artery/Lesion type: [place] artery [place] vs. transplanted heart: [place] heart Associated angina: with unstable angina Qualified Code(s): I25.110 - Atherosclerotic heart disease of [place] coronary artery with unstable angina pectoris (3) Elevated troponin Status: Acute Assessment and plan: presented with chest pain. Serial troponin 0.04, 0.16, 0.37. Heparin drip started on arrival. Evaluated by cardiology who recommended better control of BP and echocardiogram. See #1 (4) Hypertension Status: Acute Assessment and plan: per hx. BP uncontrolled on arrival requiring nitroglycerin drip. Home amlodipine increased with improvement in BP. Monitor BP and titrate PRN Qualifiers: Hypertension type: essential hypertension Qualified Code(s): I10 - Essential (primary) hypertension (5) Diabetes mellitus, type II Status: Chronic Assessment and plan: per hx. Hgb A1c 7.6%. Holding home oral hyperglycemics. SSI. Monitor blood sugar and titrate PRN Qualifiers: Diabetes mellitus emt intermediate insulin use: without halfway use Diabetes mellitus complication status: without complication Qualified Code(s): E11.9 - Type 2 diabetes mellitus without complications (6) DVT prophylaxis Status: Acute Assessment and plan: heparin gtt (7) RODRÍGUEZ (acute kidney injury) Status: Acute Assessment and plan: Gentle IV fluids. Monitor repeat renal function. - Time Spent With Patient Total time spent is greater than 50% in coordination of care (as documented) at patient's floor/unit and/or counseling patient: - Subjective Interval history: No acute events overnight - Constitutional Vitals: Temp Pulse Resp BP Pulse Ox 98.0 F 78 16 139/69 97 08/05/17 07:28 08/05/17 07:28 08/05/17 07:28 08/05/17 07:28 08/05/17 07:28 General appearance: Present: A&O X 3, no acute distress - Head Head exam: Present: atraumatic, normocephalic - Eye Eye exam: Present: PERRL, conjuntiva pink, sclera anicteric Pupils: Present: PERRL - Neck Neck exam general surgery: Present: supple, trachea midline. Absent: lymphadenopathy - Respiratory Respiratory exam: Present: CTAB. Absent: accessory muscle use, rales, rhonchi, wheezes - Cardiovascular Cardiovascular exam: Present: RRR, +S1, +S2. Absent: diastolic murmur, gallop, rubs, systolic murmur - GI/Abdominal GI/Abdominal exam: Present: normal bowel sounds, soft, no peritoneal signs. Absent: distended, tenderness - Extremities Exam Extremities exam: Present: warm, radial pulses palpable and symmetrical. Absent : calf tenderness, cyanotic, pedal edema - Neurological Exam Neurological exam: Present: CN II-XII intact, oriented X3, no focal deficits. Absent: pronater drift, facial droop, speech deficit - Skin Skin exam: Present: dry, intact Internal Medicine: Result - Labs CBC & Chem 7: 08/04/17 06:00 08/04/17 06:00 Labs: Cardiac Enzymes 08/04/17 Range/Units 15:42 Troponin I 0.13 H* (< 0.04) ng/mL - ABG Interpretation ABG results: PT/INR, D-dimer PT 9.6 Seconds (9.4-12.1) 08/03/17 01:01 Consult Discharge Plan - Plan Instructions: Famotidine (By mouth), Isosorbide Mononitrate (By mouth), Antacid , Calcium and Magnesium (By mouth), Chest Pain (DC), Diabetes Mellitus Type 2 in Adults (DC), Chronic Hypertension (DC) Referrals: Justin Burroughs MD [Primary Care Provider] - 08/10/17 9:45 am Prescriptions: Calcium Carbonate [Tums] 1,000 mg PO TID PRN #60 tab.chew PRN Reason: Indigestion Famotidine [Pepcid] 40 mg PO DAILY 30 Days #30 tablet Isosorbide MONOnitrate (24 HR) [Imdur] 30 mg PO DAILY #60 tab.er.24h
[2017-08-05] MEDS: Famotidine 20 MG TABLET PO SCH (08:15)
[2017-08-05] MEDS: amLODIPine 5 MG TABLET PO SCH (08:15)
[2017-08-05] MEDS: Lisinopril-HCTZ 20-12.5mg TABLET PO SCH (08:15)
[2017-08-05] MEDS: *HR* Ticagrelor 90 MG TABLET PO SCH (08:16)
[2017-08-05] MEDS ORDERED: *HR* Propofol 200 MG/20 ML VIAL IVP ONE (08:17)
[2017-08-05] MEDS ORDERED: Lidocaine -MPF 2% 2 ML VIAL ONE (08:17)
[2017-08-05] MEDS: Insulin LISPRO 300 UNITS/3 ML VIAL SQ SCH ×2 (08:18→12:19)
[2017-08-05] MEDS: Aspirin Enteric Coated 81 MG Tablet PO SCH (08:18)
[2017-08-05] MEDS: Isosorbide MONOnitrate (24 HR) 30 MG TAB.ER.24H PO SCH (08:19)
[2017-08-05] MEDS ORDERED: 0.9 % Sodium Chloride 1,000 ML IVC SCH (09:00)
--- NOTE | 2017-08-05 09:06 | Anesthesia Evaluation PreOp ---
Date of Encounter: 08/05/17 Time of Encounter: 09:04 - Past History Planned Operation: EGD Cardiac History: CT (STEMI 2017), HTN, Hyperlipidemia, Cardiac Stent (2017 DWAYNE x 2), Other (PAD) Pulmonary History: Denies Any Significant HX FISH NET STRINGER History: Denies Any Significant HX Other Medical History: Renal (CRI), Diabetes Type II, Thyroid (Hypo) Anesthesia History: No Prior Anesthetic Complications, Past Anesthesia Alcohol Use: none Drug use: none Medications and Allergies Aspirin [Lo-Dose Aspirin EC] 81 mg PO DAILY 08/03/17 [History] Atorvastatin [Lipitor] 40 mg PO HS 08/03/17 [History] Dexlansoprazole [Dexilant] 60 mg PO DAILY 08/03/17 [History] Insulin ASPART [Novolog Flexpen] 0 unit SQ TIDWM PRN 08/03/17 [History] Insulin Glargine,Hum.rec.anlog [Lantus Solostar] 8 unit SQ QPM 08/03/17 [History ] Lisinopril-HCTZ 20-12.5 [Prinzide 20-12.5] 1 tab PO DAILY 08/03/17 [History] Oxycodone HCl/Acetaminophen [Percocet 10-325 mg Tablet] 1 tab PO Q8H PRN [History] Ticagrelor [Brilinta] 90 mg PO BID 08/03/17 [History] amLODIPine [Norvasc] 5 mg PO DAILY 08/03/17 [History] Calcium Carbonate [Tums] 1,000 mg PO TID PRN #60 tab.chew 08/04/17 [Rx] Famotidine [Pepcid] 40 mg PO DAILY 30 Days #30 tablet 08/04/17 [Rx] Isosorbide MONOnitrate (24 HR) [Imdur] 30 mg PO DAILY #60 tab.er.24h 08/04/17 [ Rx] 3 Allergy/AdvReac Type Severity Reaction Status Date / Time codeine Allergy Rash Verified 08/03/17 00:41 gabapentin Allergy Rash Verified 08/03/17 00:41 - Meds/Allergy Pre-op Review Medications Reviewed: Yes Allergies Reviewed: Yes Beta Blockers on Current Med List: No Anesthesia Results - Labs 08/04/17 06:00 08/04/17 06:00 - Imaging EKG: report reviewed Additional studies: echo: Impressions: LVEF 55-60%. Normal LV chamber size, wall thickness and function. Mild left ventricular diastolic dysfunction. Normal right ventricular structure and function. No evidence of pulmonary hypertension. No significant valvular dysfunction. Anesthesia Exam Selected Entries 08/05/17 08:58 Temperature 98.0 F Pulse Rate 81 Respiratory Rate 18 Blood Pressure 167/68 O2 Sat by Pulse Oximetry 96 Weight: 59kg NPO (# of Hours): 8 - HEENT Pupil (Motor): EOMI Mallampati: II Teeth: Missing, Poor dentition Oral Opening: Greater than 3 - FISH NET STRINGER LOC: Oriented FISH NET STRINGER Motor: Normal RUE, Normal LUE, Normal RLE, Normal LLE, Normal Face FISH NET STRINGER Sensory: Normal: RUE, LUE, RLE, LLE, Face - Cardiac Rhythm: Regular Murmur: None - Pulmonary Breath Sounds: bilateral Clear Respiratory Effort: Symmetrical Anesthesia Assess/Plan ASA Score: 3 Modified [place] Scale for Level of Consciousness: Cooperative, oriented, and tranquil Anesthetic Plan: MAC Monitoring Plan: Standard Monitors Recovery Plan: Other (agrees to MAC)
--- NOTE | 2017-08-05 09:33 | Anesthesia Evaluation Post Op ---
Date of Encounter: 08/05/17 Time of Encounter: 09:31 - Vital Signs Vital Signs: BP 170/86 HR 93 SpO2 99% RR 12 - Lungs Lungs: Clear Ascult./Percussion - Airway Airway: Non-obstructed - Cardiovascular Regular Rate - Mental Status Mental Status: Alert & Oriented, Answers Appropriately - Pain Pain Scale: 0 Pain Scale used: Numeric (1 - 10) - Nausea Vomiting Nausea Vomiting: Not Present - Hydration Hydration: NPO, Has not voided - Discharge PostOp Status: Transfer Patient to floor
[2017-08-05 10:36] VITALS: BP 104/58
--- NOTE | 2017-08-05 10:52 | Gastroenterology Consult Note ---
<Rd Agarwal Maurilio - Last Filed: 08/05/17 10:49> Date of Encounter: 08/05/17 Time of Encounter: 09:50 - Assessment and plan (1) GERD (gastroesophageal reflux disease) Current Visit: No Status: Acute Assessment and plan: Plan for EGD today to r/o esophagitis, gastritis, duodenitis, PUD, MW tear, or AVM. Start PPI. Qualifiers: Esophagitis presence: without esophagitis Qualified Code(s): K21.9 - Gastro -esophageal reflux disease without esophagitis (2) Dysphagia Current Visit: Yes Status: Acute Assessment and plan: Plan for EGD today, will be unable to dilate esophagus due to patient taking Brilinta. If dysphagia does not improve, will consider repeat EGD with dilation as outpatient after patient holds Brilinta. Qualifiers: Dysphagia type: esophageal phase Qualified Code(s): R13.10 - Dysphagia, unspecified (3) CAD (coronary artery disease) Current Visit: Yes Status: Acute Qualifiers: Coronary Disease-Associated Artery/Lesion type: [place] artery [place] vs. transplanted heart: [place] heart Associated angina: with unstable angina Qualified Code(s): I25.110 - Atherosclerotic heart disease of [place] coronary artery with unstable angina pectoris (4) Elevated troponin Current Visit: Yes Status: Acute - Time Spent With Patient Total time spent is greater than 50% in coordination of care (as documented) at patient's floor/unit and/or counseling patient: GI History of Present Illness - Data of Consult Patient: new to practice Consult date: 08/05/17 Requesting Physician: Milka Simons MD - Consult Narrative Reason for consult: Dysphagia History of present illness: Ms. Valverde is a 71 year old female with PMHx of CAD, STEMI 12/2016 s/p PCI to LAD with DWAYNE, DM, HLD, HTN, MD, PVD of tight lower extremity who presented to the ED with chest pain. Cardiology was consulted and suspect demand ischemia and will arrange for outpatient follow up. We have been consulted to evaluate her dysphagia. She complained of dysphagia with solids and liquids, GERD, and weight loss. She reports a 20 lb weight loss since December 2016. Procedures: Colonoscopy 01/16/2017 Dr. Ng: Normal EGD 01/15/2017 Dr. Ng: Small hiatal hernia. NSAIDs: ASA Anticoagulation: Brilinta Past Med Surg Social Fam HX - Past Medical History Medical history: coronary artery disease, diabetes, hyperlipidemia, hypertension , myocardial infarction, peripheral artery disease, renal disease Additional medical history: gout Psychiatric history: anxiety - Past Surgical History Surgical History: angioplasty/stent Additional surgical history: mid LAD and prox OM drug eluding stents - Social History Smoking Status: Never smoker Smokeless Tobacco Status: No Alcohol use: none Drug use: none - Family History Maternal Living Status: Cause of : MD Paternal Living Status: Cause of : MD - Gastrointestinal Gastrointestinal: Present: as per HPI - Constitutional Constitutional: as per HPI - EENT Eyes: as per HPI Ears: Present: as per HPI Nose, mouth and throat: Present: as per HPI - Cardiovascular Cardiovascular ROS: Present: as per HPI - Respiratory Respiratory IM: Present: as per HPI - Genitourinary Genitourinary: Absent: change in color, Urinary frequency - Neurological ROS Neurological GI: Present: as per HPI - Hematologic/Lymphatic Hematologic/Lymphatic pediatric: Present: as per HPI - Musculoskeletal Musculoskeletal ROS GI: Present: as per HPI - Integumentary Integumentary GI: Present: as per HPI - Psychiatric ROS Psychiatric GI: Present: as per HPI - Endocrine Endocrine IM: Present: as per HPI - Constitutional Vitals: Temp Pulse Resp BP Pulse Ox 98.1 F 75 16 104/58 98 08/05/17 10:33 08/05/17 10:33 08/05/17 10:33 08/05/17 10:33 08/05/17 10:33 General appearance: Present: cooperative, A&O X 3, no acute distress, answers questions appropriately - Head Head exam: Present: atraumatic, normocephalic - Eye Eye exam: Present: normal appearance, sclera anicteric - ENT ENT exam: Present: mucous membranes dry - Neck Neck exam general surgery: Present: normal inspection, trachea midline - Respiratory Respiratory exam: Present: CTAB. Absent: rales, rhonchi - Cardiovascular Cardiovascular exam: Present: RRR, +S1, +S2 - GI/Abdominal GI/Abdominal exam: Present: soft, no peritoneal signs. Absent: distended, firm , guarding, tenderness - Rectal Rectal exam: Present: deferred - Extremities Exam Extremities exam: Present: warm - Neurological Exam Neurological exam: Present: no focal deficits - Psychiatric Psychiatric exam: Present: normal affect, normal mood - Skin Skin exam: Present: dry, intact, normal color, warm Results - Labs CBC & Chem 7: 08/04/17 06:00 08/04/17 06:00 Labs: Last Result Calcium 8.6 mg/dL (8.6-10.3) 08/04/17 06:00 Troponin I 0.13 ng/mL (< 0.04) H* 08/04/17 15:42 Triglycerides 91 mg/dL (< 150) 08/04/17 06:00 Entire Visit Hgb 9.6 g/dL (11.5-15.4) L D 08/04/17 06:00 Hct 29.9 % (35.3-44.9) L 08/04/17 06:00 PT 9.6 Seconds (9.4-12.1) 08/03/17 01:01 - ABG ABG results: PT/INR, D-dimer PT 9.6 Seconds (9.4-12.1) 08/03/17 01:01 Consult Discharge Plan - Plan Instructions: Famotidine (By mouth), Isosorbide Mononitrate (By mouth), Antacid , Calcium and Magnesium (By mouth), Chest Pain (DC), Diabetes Mellitus Type 2 in Adults (DC), Chronic Hypertension (DC) Referrals: Justin Burroughs MD [Primary Care Provider] - 08/10/17 9:45 am Prescriptions: Calcium Carbonate [Tums] 1,000 mg PO TID PRN #60 tab.chew PRN Reason: Indigestion Famotidine [Pepcid] 40 mg PO DAILY 30 Days #30 tablet Isosorbide MONOnitrate (24 HR) [Imdur] 30 mg PO DAILY #60 tab.er.24h <Peggy Graff - Last Filed: 08/05/17 12:47> Date of Encounter: 08/05/17 Time of Encounter: 09:00 - Time Spent With Patient Total time spent is greater than 50% in coordination of care (as documented) at patient's floor/unit and/or counseling patient: GI History of Present Illness - Data of Consult Requesting Physician: Milka Simons MD - Consult Narrative History of present illness: Ms. Valverde is a 71 year old female - Constitutional Vitals: Temp Pulse Resp BP Pulse Ox 98.1 F 75 16 104/58 98 08/05/17 10:33 08/05/17 10:33 08/05/17 10:33 08/05/17 10:33 08/05/17 10:33 Results - Labs CBC & Chem 7: 08/04/17 06:00 08/04/17 06:00 Labs: Last Result Calcium 8.6 mg/dL (8.6-10.3) 08/04/17 06:00 Troponin I 0.13 ng/mL (< 0.04) H* 08/04/17 15:42 Triglycerides 91 mg/dL (< 150) 08/04/17 06:00 Entire Visit Hgb 9.6 g/dL (11.5-15.4) L D 08/04/17 06:00 Hct 29.9 % (35.3-44.9) L 08/04/17 06:00 PT 9.6 Seconds (9.4-12.1) 08/03/17 01:01 - ABG ABG results: PT/INR, D-dimer PT 9.6 Seconds (9.4-12.1) 08/03/17 01:01 - Attending Attestation I have personally performed a face to face evaluation on this patient. I have reviewed and agree with the care plan. History and Exam by me shows: Pt Seen at the bedside. Complaining of difficulty swallowing and especially lower chest pain when swallowing. Assessment dysphagia/odynophagia. Rec: EGD. If found to have a stricture then she will need to be off antiplatelet before we can do the dilation
[2017-08-05] MEDS ORDERED: Insulin DETEMIR 100 UNIT/ML X5UNITS SQ SCH (21:00)
== END 2017-08-05 14:02 | disposition home or self-care (01) | DRG 303 ==
LOC: EMEROO 00:36 → 2SOUTHHOLD 08:45 → 2ANU 08-04 17:57
PROVIDERS: ADMIT Internal Medicine; ATTEND Internal Medicine

== ENCOUNTER 2017-12-17 07:56 | Inpatient (IN) ==
[2017-12-17] MEDS ORDERED: *HR* LORazepam 2 MG/ML VIAL IVP ONE (08:12)
[2017-12-17] MEDS ORDERED: *HR* LORazepam 2 MG/ML VIAL ONE (08:12)
--- NOTE | 2017-12-17 08:29 | Emergency Department Note ---
Disposition Clinical Impression: Shortness of breath Disposition: Admitted As Inpatient Condition: Fair Time of Disposition: 10:04 SOB HPI - General Stated Complaint: NAVNEET Time Seen by Provider: 12/17/17 07:59 Source: patient, EMS Mode of arrival: EMS Limitations: no limitations Nursing Notes Reviewed: Yes Vital Signs Reviewed: Yes - History of Present Illness Patient is a 72-year-old female with a history of CHF, who states that she ate at [employer] last night and then started to feel short of breath shortly afterwards and continued to get worse all night. She then called the ambulance this morning when it was evident that her breathing was not going to get any better. She states that she has not had any fevers, she has not had a productive cough, and she has never been a smoker. Patient also endorses some occasional chest pain in her left inframammary area with radiation to the back, and a history of 2 heart attacks with 4 stents. Patient denies alcohol, and illicit or illegal drugs. Patient states that light bothers her eyes so she has difficulty keeping them open, but she denies headache. Patient states that she has some epigastric abdominal pain and constipation. - Related Data Home Medications Medication Instructions Recorded Confirmed Aspirin [Lo-Dose Aspirin EC] 81 mg PO DAILY 08/03/17 12/17/17 Atorvastatin [Lipitor] 40 mg PO HS 08/03/17 12/17/17 Insulin ASPART [Novolog Flexpen] 5 unit SQ TIDWM PRN 08/03/17 12/17/17 Insulin Glargine,Hum.rec.anlog 5 - 10 unit SQ QPM 08/03/17 12/17/17 [Lantus Solostar] Oxycodone HCl/Acetaminophen 1 tab PO Q8H PRN 08/03/17 12/17/17 [Percocet 10-325 mg Tablet] Ticagrelor [Brilinta] 90 mg PO BID 08/03/17 12/17/17 amLODIPine [Norvasc] 5 mg PO DAILY 08/03/17 12/17/17 Furosemide [Lasix] 40 mg PO DAILY 12/17/17 12/17/17 Potassium Chloride [Klor-Con 10] 10 meq PO DAILY 12/17/17 12/17/17 Previous Rx's Medication Instructions Recorded Calcium Carbonate [Tums] 1,000 mg PO TID PRN #60 tab.chew 08/04/17 Albuterol Sulfate [Ventolin Hfa] 2 puff IH Q4HR PRN #1 hfa.aer.ad 09/30/17 Allergies Allergy/AdvReac Type Severity Reaction Status Date / Time codeine Allergy Rash Verified 12/17/17 10:11 gabapentin Allergy Rash Verified 12/17/17 10:11 All systems ED: reviewed and negative except as stated. Constitutional: Denies: fever ENT ED: Denies: congestion, dysphagia Cardiovascular: Reports: chest pain Respiratory: Reports: cough (dry), dyspnea, wheezes. Denies: hemoptysis Gastrointestinal: Reports: abdominal pain (epigastric), constipation. Denies: vomiting, diarrhea Genitourinary: Denies: urgency, dysuria Musculoskeletal: Reports: back pain (between her shoulder blades) Neurological: Denies: headache, numbness Past Medical History - Past Medical History Medical history: Reports: coronary artery disease, diabetes, hyperlipidemia, hypertension, myocardial infarction, peripheral artery disease, renal disease Surgical history: Reports: angioplasty/stent Psychiatric history: Reports: anxiety [employer] SW[employer]ER history: Reports: bilateral tubal ligation - Social History Smoking Status: Unknown if ever smoked Smokeless Tobacco Status: No Alcohol use: Reports: none Drug use: Reports: none Physical Exam - General Limitations: no limitations General appearance: alert, anxious - Head Head exam: atraumatic, normocephalic - Eye Eye exam: Present: normal appearance, PERRL, EOMI. Absent: scleral icterus, conjunctival injection - ENT ENT exam: normal exam, normal oropharynx - Neck Neck exam: Present: normal inspection, full ROM - Chest Chest inspection: Present: normal inspection, symmetric chest wall rise, other (bruising on underside of right breast). Absent: tenderness - Respiratory Respiratory exam: Present: wheezes (diffuse) - Expanded Respiratory Exam Location: wheezes: Upper, Lower, Right, Left - Cardiovascular Cardiovascular exam: Present: normal rhythm, tachycardia - Abdominal Exam Abdominal exam: Present: soft, tenderness. Absent: distention Abdominal tenderness: Present: epigastrium - Expanded Lower Extremity Exam Lower leg exam: Absent: swelling - Back Exam Back exam: Present: full ROM, other (kyphosis). Absent: tenderness - Psychiatric Psychiatric exam: Present: anxious, flat affect - Skin Skin exam: Present: dry, intact Course Course Narrative: Patient will need to have a cardiac workup to rule out acute coronary syndrome, and will receive basic labs including CBC, CMP, BNP, lipase, troponin, chest x- ray, EKG. This is likely CHF exacerbation and patient will likely need to be admitted. Vital Signs Temperature 97.7 F 12/17/17 08:02 Pulse Rate 106 12/17/17 08:02 Respiratory Rate 22 12/17/17 08:02 Blood Pressure 153/68 12/17/17 08:02 O2 Sat by Pulse Oximetry 90 12/17/17 08:02 Temperature 97.7 F 12/17/17 08:02 Pulse Rate 99 12/17/17 09:10 Respiratory Rate 16 12/17/17 09:10 Blood Pressure 136/56 12/17/17 09:10 O2 Sat by Pulse Oximetry 99 12/17/17 09:15 Oxygen Delivery Oxygen Delivery Nasal Cannula Shortness of Breath/Dyspnea - MDM Narrative Medical decision making narrative: Patient's troponin was elevated at 0.05 which is slightly decreased from her last measurement in July at 0.13, likely represents demand ischemia as EKG did not show T-wave elevation. BNP was elevated at over 1400, and chest x-ray was concerning for congestion. Pt is being admitted for CHF exacerbation, [facility] Dr. Flannery accepts. Pt was given an opportunity to ask questions and all of her concerns were addressed. Pt remained stable while in the department, oxygenation improved on 3L NC into high 90's from low 90's at presentation. - Medical Records Medical records reviewed: Yes I reviewed the patient's medical records. - Lab Data Lab results reviewed: Yes I reviewed the patient's lab results. Result diagrams: 12/17/17 08:24 12/17/17 08:24 Lab Results 12/17/17 12/17/17 12/17/17 Range/Units 08:24 08:24 08:24 WBC 12.2 H (4.3-11.1) K/mcL RBC 3.83 (3.82-4.97) M/mcL Hgb 11.9 (11.5-15.4) g/dL Hct 35.9 (35.3-44.9) % MCV 93.7 (83.0-100.0) fL MCH 31.1 (28.0-33.3) pg MCHC 33.1 (31.6-35.5) g/dL RDW 13.9 (11.5-14.5) % Plt Count 274 (140-400) K/mcL MPV 10.8 (9.4-12.4) fL Immature Gran % 0.5 (0-4) % Seg Neutrophils % 76.6 % Lymphocytes % 17.7 % Monocytes % 4.4 % Eosinophils % 0.5 % Basophils % 0.3 % Neutrophils # 9.4 H (1.6-8.9) K/mcL Lymphocytes # 2.2 (0.6-4.6) K/mcL Monocytes # 0.5 (0.0-1.3) K/mcL Eosinophils # 0.1 (0.0-0.6) K/mcL Basophils # 0.0 (0.0-0.2) K/mcL Sodium 137 (136-145) mEq/L Potassium 3.7 (3.5-5.1) mEq/L Chloride 101 (98-107) mEq/L Carbon Dioxide 24 (23-29) mEq/L BUN 25 H (8-23) mg/dL Creatinine 0.97 (0.60-1.20) mg/dL Est GFR ( Amer) > 60 (> 60) Est GFR (Non-Af Amer) 57 L (> 60) BUN/Creatinine Ratio 26 (6-26) Glucose 357 H (70-105) mg/dL Calculated Osmolality 303 H (280-300) Calcium 9.4 (8.6-10.3) mg/dL Total Bilirubin 0.6 (0.3-1.0) mg/dL AST 16 (13-39) Units/L ALT 15 (7-52) Units/L Alkaline Phosphatase 116 H (34-104) Units/L Troponin I 0.05 H* (< 0.04) ng/mL B-Natriuretic Peptide 1435 H (Less than 100) pg/mL Serum Total Protein 6.9 (6.4-8.9) g/dL Albumin 4.1 (3.5-5.7) g/dL Globulin 2.8 (2.4-3.5) g/dL Albumin/Globulin Ratio 1.5 (1.1-2.2) Lipase 20 (11-82) Units/L - Radiology Data Radiology results reviewed: Yes I reviewed the patient's radiology results. Chest X-Ray 12/17/17 08:16 IMPRESSION: Findings likely represent pulmonary edema. D/ / Eder Sandoval MD / Eder Sandoval MD Interpreting Provider: Eder Sandoval MD - EKG Data EKG attestation: Yes I reviewed and interpreted this EKG. EKG results narrative: Rate 105, Rhythm sinus, axis normal. ME 158, QRS 112, QTC 488. QTC borderline prolonged. ST depression in leads V3, V4, V5, V6 - more than previous EKG on 08/03/17.
[2017-12-17 08:36] LABS: Basophils % 0.3 %; Eosinophils # 0.1 K/mcL (0.0-0.6); Eosinophils % 0.5 %; Hematocrit 35.9 % (35.3-44.9); Hemoglobin 11.9 g/dL (11.5-15.4); Immature Granulocytes % 0.5 % (0-4); Lymphocytes # 2.2 K/mcL (0.6-4.6); Lymphocytes % 17.7 %; Mean Corpuscular HGB Conc 33.1 g/dL (31.6-35.5); Mean Corpuscular Hemoglobin 31.1 pg (28.0-33.3); Mean Corpuscular Volume 93.7 fL (83.0-100.0); Mean Platelet Volume 10.8 fL (9.4-12.4); Monocytes # 0.5 K/mcL (0.0-1.3); Monocytes % 4.4 %; Neutrophils # 9.4 K/mcL (1.6-8.9); Platelet Count 274 K/mcL (140-400); Red Blood Count 3.83 M/mcL (3.82-4.97); Red Cell Distribution Width 13.9 % (11.5-14.5); Segmented Neutrophils % 76.6 %
[2017-12-17 08:59] LABS: Alanine Aminotransferase 15 Units/L (7-52); Albumin 4.1 g/dL (3.5-5.7); Albumin/Globulin Ratio 1.5 (1.1-2.2); Alkaline Phosphatase 116 Units/L (34-104); Aspartate Amino Transferase 16 Units/L (13-39); BUN/Creatinine Ratio 26 (6-26); Bilirubin,Total 0.6 mg/dL (0.3-1.0); Blood Urea Nitrogen 25 mg/dL (8-23); Calcium 9.4 mg/dL (8.6-10.3); Carbon Dioxide 24 mEq/L (23-29); Chloride 101 mEq/L (98-107); Globulin 2.8 g/dL (2.4-3.5); Glucose 357 mg/dL (70-105); Lipase 20 Units/L (11-82); Osmolality,Calculated 303 (280-300); Potassium 3.7 mEq/L (3.5-5.1); Sodium 137 mEq/L (136-145); Total Protein 6.9 g/dL (6.4-8.9); eGFR For Non-African Americans 57 (> 60)
[2017-12-17 09:07] LABS: Troponin I 0.05 ng/mL (< 0.04)
[2017-12-17] MEDS ORDERED: Aspirin 325 MG TABLET PO ONE (09:08)
--- NOTE | 2017-12-17 09:10 | Emergency Department Note ---
Disposition Clinical Impression: Shortness of breath Disposition: Admitted As Inpatient Condition: Fair General Adult HPI - General Stated complaint: NAVNEET Time Seen by Provider: 12/17/17 07:59 Source: patient, EMS Mode of arrival: EMS Limitations: no limitations - Related Data Home Medications Medication Instructions Recorded Confirmed Aspirin [Lo-Dose Aspirin EC] 81 mg PO DAILY 08/03/17 12/17/17 Atorvastatin [Lipitor] 40 mg PO HS 08/03/17 12/17/17 Insulin ASPART [Novolog Flexpen] 5 unit SQ TIDWM PRN 08/03/17 12/17/17 Insulin Glargine,Hum.rec.anlog 5 - 10 unit SQ QPM 08/03/17 12/17/17 [Lantus Solostar] Oxycodone HCl/Acetaminophen 1 tab PO Q8H PRN 08/03/17 12/17/17 [Percocet 10-325 mg Tablet] Ticagrelor [Brilinta] 90 mg PO BID 08/03/17 12/17/17 amLODIPine [Norvasc] 5 mg PO DAILY 08/03/17 12/17/17 Furosemide [Lasix] 40 mg PO DAILY 12/17/17 12/17/17 Potassium Chloride [Klor-Con 10] 10 meq PO DAILY 12/17/17 12/17/17 Previous Rx's Medication Instructions Recorded Calcium Carbonate [Tums] 1,000 mg PO TID PRN #60 tab.chew 08/04/17 Albuterol Sulfate [Ventolin Hfa] 2 puff IH Q4HR PRN #1 hfa.aer.ad 09/30/17 Allergies Allergy/AdvReac Type Severity Reaction Status Date / Time codeine Allergy Rash Verified 12/17/17 10:11 gabapentin Allergy Rash Verified 12/17/17 10:11 Constitutional: Denies: fever ENT ED: Denies: congestion, dysphagia Cardiovascular: Reports: chest pain Respiratory: Reports: cough (dry), dyspnea, wheezes. Denies: hemoptysis Gastrointestinal: Reports: abdominal pain (epigastric), constipation. Denies: vomiting, diarrhea Genitourinary: Denies: urgency, dysuria Musculoskeletal: Reports: back pain (between her shoulder blades) Neurological: Denies: headache, numbness Past Medical History - Past Medical History Medical history: Reports: coronary artery disease, diabetes, hyperlipidemia, hypertension, myocardial infarction, peripheral artery disease, renal disease Surgical history: Reports: angioplasty/stent Psychiatric history: Reports: anxiety [employer] history: Reports: bilateral tubal ligation - Social History Smoking Status: Unknown if ever smoked Smokeless Tobacco Status: No Alcohol use: Reports: none Drug use: Reports: none Physical Exam - General Limitations: no limitations General appearance: alert, anxious Course Vital Signs Temperature 97.7 F 12/17/17 08:02 Pulse Rate 106 12/17/17 08:02 Respiratory Rate 22 12/17/17 08:02 Blood Pressure 153/68 12/17/17 08:02 O2 Sat by Pulse Oximetry 90 12/17/17 08:02 Temperature 98.0 F 12/17/17 11:21 Pulse Rate 95 12/17/17 11:21 Respiratory Rate 18 12/17/17 11:21 Blood Pressure 135/64 12/17/17 11:21 O2 Sat by Pulse Oximetry 97 12/17/17 11:25 Oxygen Delivery Oxygen Delivery Nasal Cannula Medical Decision Making - Lab Data Result diagrams: 12/17/17 08:24 12/17/17 08:24 Lab Results 12/17/17 12/17/17 12/17/17 Range/Units 08:24 08:24 08:24 WBC 12.2 H (4.3-11.1) K/mcL RBC 3.83 (3.82-4.97) M/mcL Hgb 11.9 (11.5-15.4) g/dL Hct 35.9 (35.3-44.9) % MCV 93.7 (83.0-100.0) fL MCH 31.1 (28.0-33.3) pg MCHC 33.1 (31.6-35.5) g/dL RDW 13.9 (11.5-14.5) % Plt Count 274 (140-400) K/mcL MPV 10.8 (9.4-12.4) fL Immature Gran % 0.5 (0-4) % Seg Neutrophils % 76.6 % Lymphocytes % 17.7 % Monocytes % 4.4 % Eosinophils % 0.5 % Basophils % 0.3 % Neutrophils # 9.4 H (1.6-8.9) K/mcL Lymphocytes # 2.2 (0.6-4.6) K/mcL Monocytes # 0.5 (0.0-1.3) K/mcL Eosinophils # 0.1 (0.0-0.6) K/mcL Basophils # 0.0 (0.0-0.2) K/mcL Sodium 137 (136-145) mEq/L Potassium 3.7 (3.5-5.1) mEq/L Chloride 101 (98-107) mEq/L Carbon Dioxide 24 (23-29) mEq/L BUN 25 H (8-23) mg/dL Creatinine 0.97 (0.60-1.20) mg/dL Est GFR ( Amer) > 60 (> 60) Est GFR (Non-Af Amer) 57 L (> 60) BUN/Creatinine Ratio 26 (6-26) Glucose 357 H (70-105) mg/dL Calculated Osmolality 303 H (280-300) Calcium 9.4 (8.6-10.3) mg/dL Total Bilirubin 0.6 (0.3-1.0) mg/dL AST 16 (13-39) Units/L ALT 15 (7-52) Units/L Alkaline Phosphatase 116 H (34-104) Units/L Troponin I 0.05 H* (< 0.04) ng/mL B-Natriuretic Peptide 1435 H (Less than 100) pg/mL Serum Total Protein 6.9 (6.4-8.9) g/dL Albumin 4.1 (3.5-5.7) g/dL Globulin 2.8 (2.4-3.5) g/dL Albumin/Globulin Ratio 1.5 (1.1-2.2) Lipase 20 (11-82) Units/L Critical Care Time Critical Care Time: Yes Total Critical Care Time: 35 Attestation: Critical care performed: Time is exclusive of separately billable procedures. Time includes: direct patient care, patient reassessment, coordination of patient care, interpretation of data (laboratory data, radiology data, and respiratory data), review of patient's medical records, medical consultation and documentation of patient c are. Procedures included in critical care time: Procedures excluded from critical care time: Attestation Statement - Attestation Attestation: I examined this patient and my medical decision-making was reviewed with the Resident Physician. I agree with the documented findings, disposition and treatment plan as described except to the extent set forth below. Patient presents to the emergency department with a chief complaint of shortness of breath. Onset last night. Symptoms started after eating dinner [employer]. Patient has a history of CHF. She also had a stressful evening after a stressf ul event with her daughter. On examination she appears anxious. Rales. Speaking full sentences. Plan. CHF workup. Troponin 0.05. Likely from fluid overload. BNP elevated. We will give Lasix. Admit.-
[2017-12-17] MEDS ORDERED: Insulin Regular, Human 100 UNIT/ML SQ ONE (09:15)
[2017-12-17] MEDS ORDERED: Furosemide 20 MG/2 ML VIAL IVP ONE (09:16)
[2017-12-17] MEDS ORDERED: *HR* OxyCODONE/APAP 10/325 TABLET PO ONE (09:23)
[2017-12-17] MEDS ORDERED: traMADol 50 MG TABLET PO PRN (09:52)
[2017-12-17] MEDS ORDERED: Naloxone 0.4 MG/ML INJ IVP PRN (09:52)
[2017-12-17] MEDS ORDERED: Furosemide 40 MG/4 ML VIAL IVP SCH (09:55)
[2017-12-17] MEDS ORDERED: Albuterol 2.5 MG/3 ML NEBULIZER IH PRN (09:55)
[2017-12-17] MEDS ORDERED: Dextrose Gel 15 GM/37.5 ML TUBE PO PRN ×2 (09:56)
[2017-12-17] MEDS ORDERED: D5% in Water 1,000 ML IVC PRN (09:56)
[2017-12-17] MEDS ORDERED: *HR* Dextrose 50 % in Water (Syg) 50 ML SYRINGE IVP PRN (09:56)
--- NOTE | 2017-12-17 10:00 | Internal Med History&Physical ---
Internal Medicine - H&P: HPI History of present illness: Ms. Valverde is a 72 year old female Past Med Surg Social Fam HX - Past Medical History Medical history: coronary artery disease, diabetes, hyperlipidemia, hypertension, myocardial infarction, peripheral artery disease, renal disease Additional medical history: gout Psychiatric history: anxiety - Past Surgical History Surgical History: angioplasty/stent Additional surgical history: mid LAD and prox OM drug eluding stents. Heart Stents. Tubal Ligation - Social History Smoking Status: Unknown if ever smoked Smokeless Tobacco Status: No Alcohol use: none Drug use: none - Family History Maternal Living Status: Paternal Living Status: Internal Medicine - H&P: Meds Aspirin [Lo-Dose Aspirin EC] 81 mg PO DAILY 08/03/17 [History] Atorvastatin [Lipitor] 40 mg PO HS 08/03/17 [History] Dexlansoprazole [Dexilant] 60 mg PO DAILY 08/03/17 [History] Insulin ASPART [Novolog Flexpen] 0 unit SQ TIDWM PRN 08/03/17 [History] Insulin Glargine,Hum.rec.anlog [Lantus Solostar] 8 unit SQ QPM 08/03/17 [History] Lisinopril-HCTZ 20-12.5 [Prinzide 20-12.5] 1 tab PO DAILY 08/03/17 [History] Oxycodone HCl/Acetaminophen [Percocet 10-325 mg Tablet] 1 tab PO Q8H PRN 08/03/17 [History] Ticagrelor [Brilinta] 90 mg PO BID 08/03/17 [History] amLODIPine [Norvasc] 5 mg PO DAILY 08/03/17 [History] Calcium Carbonate [Tums] 1,000 mg PO TID PRN #60 tab.chew 08/04/17 [Rx] Famotidine [Pepcid] 40 mg PO DAILY 30 Days #30 tablet 08/04/17 [Rx] Isosorbide MONOnitrate (24 HR) [Imdur] 30 mg PO DAILY #60 tab.er.24h 08/04/17 [Rx] Albuterol Sulfate [Ventolin Hfa] 2 puff IH Q4HR PRN #1 hfa.aer.ad 09/30/17 [Rx] Amoxicillin/Clavulanate [Augmentin] 875 mg PO BIDWM #20 tablet 09/30/17 [Rx] Allergy/AdvReac Type Severity Reaction Status Date / Time codeine Allergy Rash Verified 08/03/17 00:41 gabapentin Allergy Rash Verified 08/03/17 00:41 All Systems PM: A 10-system review of systems was performed and is negative for pertinent findings except as documented above in the HPI. - Constitutional Vitals: Temp Pulse Resp BP Pulse Ox 97.7 F 99 16 136/56 99 12/17/17 08:02 12/17/17 09:10 12/17/17 09:10 12/17/17 09:10 12/17/17 09:15 Internal Med - H&P Results - Labs CBC & Chem 7: 12/17/17 08:24 12/17/17 08:24 Labs: Short CBC 12/17/17 Range/Units 08:24 WBC 12.2 H (4.3-11.1) K/mcL Hgb 11.9 (11.5-15.4) g/dL Hct 35.9 (35.3-44.9) % Plt Count 274 (140-400) K/mcL Neutrophils # 9.4 H (1.6-8.9) K/mcL BMP 12/17/17 08:24 Sodium 137 Potassium 3.7 Chloride 101 Carbon Dioxide 24 BUN 25 H Creatinine 0.97 Glucose 357 H Calcium 9.4 Cardiac Enzymes 12/17/17 Range/Units 08:24 Troponin I 0.05 H* (< 0.04) ng/mL Liver Function 12/17/17 Range/Units 08:24 Total Bilirubin 0.6 (0.3-1.0) mg/dL AST 16 (13-39) Units/L ALT 15 (7-52) Units/L Alkaline Phosphatase 116 H (34-104) Units/L Albumin 4.1 (3.5-5.7) g/dL - Impressions ITS Impressions Chest X-Ray 12/17/17 08:16 IMPRESSION: Findings likely represent pulmonary edema. D/ / Eder Sandoval MD / Eder Sandoval MD Interpreting Provider: Eder Sandoavl MD - Time Spent With Patient Total time spent is greater than 50% in coordination of care (as documented) at patient's floor/unit and/or counseling patient:
[2017-12-17] MEDS ORDERED: Insulin LISPRO 300 UNITS/3 ML VIAL SQ SCH (11:30)
[2017-12-17] MEDS: Insulin DETEMIR 100 UNIT/ML X5UNITS SQ SCH ×2 (11:31→22:24)
--- NOTE | 2017-12-17 12:33 | Internal Med History&Physical ---
Date of Encounter: 12/17/17 Time of Encounter: 12:35 Internal Medicine - H&P: HPI Chief complaint: Shortness of breath Admitted From: Emergency Dept Plans for Post Hospital Care: Home History of present illness: Ms. Valverde is a 72 year old female patient with a history of coronary artery disease, diabetes, hypertension, peripheral artery disease, who presented to the ER with complaints of shortness of breath. She reports that his symptoms have been going on for 4 days now and have been progressively worsening. Shortness of breath gets worse with any exertion and by lying down on her back. She also had pedal edema. She does have cough with whitish sputum. No fevers or chills. Denies any chest pain currently but she does get mild chest pains occasionally that are not as severe as her prior cardiac events. She did receive Lasix in the ER and has had good urine output since then. She feels somewhat better now. Past Med Surg Social Fam HX - Past Medical History Attestation: Yes The following information was validated with the patient. Source: old records reviewed Medical history: coronary artery disease, diabetes, hyperlipidemia, hypertension, myocardial infarction, peripheral artery disease, renal disease Additional medical history: gout Psychiatric history: anxiety - Past Surgical History Surgical History: angioplasty/stent Additional surgical history: mid LAD and prox OM drug eluding stents. Heart Stents. Tubal Ligation - Social History Smoking Status: Unknown if ever smoked Smokeless Tobacco Status: No Alcohol use: none Drug use: none - Family History Maternal Living Status: Paternal Living Status: Internal Medicine - H&P: Meds Aspirin [Lo-Dose Aspirin EC] 81 mg PO DAILY 08/03/17 [History] Atorvastatin [Lipitor] 40 mg PO HS 08/03/17 [History] Insulin ASPART [Novolog Flexpen] 5 unit SQ TIDWM PRN 08/03/17 [History] Insulin Glargine,Hum.rec.anlog [Lantus Solostar] 5 - 10 unit SQ QPM 08/03/17 [History] Oxycodone HCl/Acetaminophen [Percocet 10-325 mg Tablet] 1 tab PO Q8H PRN 08/03/17 [History] Ticagrelor [Brilinta] 90 mg PO BID 08/03/17 [History] amLODIPine [Norvasc] 5 mg PO DAILY 08/03/17 [History] Calcium Carbonate [Tums] 1,000 mg PO TID PRN #60 tab.chew 08/04/17 [Rx] Albuterol Sulfate [Ventolin Hfa] 2 puff IH Q4HR PRN #1 hfa.aer.ad 09/30/17 [Rx] Furosemide [Lasix] 40 mg PO DAILY 12/17/17 [History] Potassium Chloride [Klor-Con 10] 10 meq PO DAILY 12/17/17 [History] Allergy/AdvReac Type Severity Reaction Status Date / Time codeine Allergy Rash Verified 12/17/17 10:11 gabapentin Allergy Rash Verified 12/17/17 10:11 All Systems PM: A 10-system review of systems was performed and is negative for pertinent findings except as documented above in the HPI. - Constitutional Constitutional: no chills, no fever(s), no night sweats - EENT Eyes: no change in vision, no discharge, no pain, no photophobia Ears: no ear discharge, no ear pain, no tinnitus Nose, mouth and throat: no dysphagia, no nasal discharge, no neck pain, no sore throat - Cardiovascular Cardiovascular ROS IM: dyspnea, dyspnea on exertion, orthopnea, no chest pain, no diaphoresis, no lightheadedness, no palpitations, no syncope - Respiratory Respiratory: dyspnea, dyspnea on exertion, no cough, no wheezing, no excessive phlegm production - Gastrointestinal Gastrointestinal: no abdominal pain, no diarrhea, no hematemesis, no hematochezia, no melena, no nausea, no vomiting - Genitourinary Genitourinary: no change in urinary stream, no dysuria, no flank pain, no hematuria - Musculoskeletal Musculoskeletal ROS IM: no numbness, no tingling - Integumentary Integumentary IM: no rash, no unusual bruising - Neurological Neurological ROS: no confusion, no convulsions, no focal weakness, no numbness, no tingling, no tremor(s) - Hematologic/Lymphatic Hematologic/Lymphatic: no easy bruising - Constitutional Vitals: Temp Pulse Resp BP Pulse Ox 98.0 F 95 18 135/64 97 12/17/17 11:21 12/17/17 11:21 12/17/17 11:21 12/17/17 11:21 12/17/17 11:25 General appearance: Present: cooperative, mild distress, A&O X 3, pleasant, answers questions appropriately Exam: Mild distress - Neck Neck exam general surgery: Present: supple, trachea midline. Absent: l ymphadenopathy - Respiratory Respiratory exam: Present: prolonged expiratory phase. Absent: accessory muscle use, rales, rhonchi, wheezes Additional comments: Mild basal crackles - Cardiovascular Cardiovascular exam: Present: RRR, +S1, +S2. Absent: diastolic murmur, gallop, rubs, systolic murmur - Extremities Exam Extremities exam: Present: pedal edema, warm, radial pulses palpable and symmetrical. Absent: calf tenderness, cyanotic - Neurological Exam Neurological exam: Present: alert, oriented X3, no focal deficits. Absent: facial droop, speech deficit - Skin Skin exam: Present: dry, intact Internal Med - H&P Results - Labs CBC & Chem 7: 12/17/17 08:24 12/17/17 08:24 Labs: Short CBC 12/17/17 Range/Units 08:24 WBC 12.2 H (4.3-11.1) K/mcL Hgb 11.9 (11.5-15.4) g/dL Hct 35.9 (35.3-44.9) % Plt Count 274 (140-400) K/mcL Neutrophils # 9.4 H (1.6-8.9) K/mcL BMP 12/17/17 08:24 Sodium 137 Potassium 3.7 Chloride 101 Carbon Dioxide 24 BUN 25 H Creatinine 0.97 Glucose 357 H Calcium 9.4 Cardiac Enzymes 12/17/17 12/17/17 Range/Units 08:24 10:14 Troponin I 0.05 H* 0.09 H* (< 0.04) ng/mL Liver Function 12/17/17 Range/Units 08:24 Total Bilirubin 0.6 (0.3-1.0) mg/dL AST 16 (13-39) Units/L ALT 15 (7-52) Units/L Alkaline Phosphatase 116 H (34-104) Units/L Albumin 4.1 (3.5-5.7) g/dL - Impressions ITS Impressions Chest X-Ray 12/17/17 08:16 IMPRESSION: Findings likely represent pulmonary edema. D/ / Eder Sandoval MD / Eder Sandoval MD Interpreting Provider: Eder Sandoval MD - Assessment and plan (1) Congestive heart failure Current Visit: Yes Status: Acute Assessment and plan: Patient is an acute on chronic congestive heart failure: Combined systolic and diastolic. Chest x-ray shows pulmonary edema. Continue IV Lasix twice daily. Monitor input and output. Daily weights. Follow up with cardiology after discharge. Monitor renal function closely as patient did not develop acute kidney injury due to Lasix use. Per last echocardiogram done in September 2017, patient has an EF of 45% with mildly dilated left ventricle. She also had mild pulmonary hypertension. Qualifiers: Heart failure type: combined systolic and diastolic Heart failure chronicity: acute on chronic Qualified Code(s): I50.43 - Acute on chronic combined systolic (congestive) and diastolic (congestive) heart failure (2) CAD (coronary artery disease) Current Visit: Yes Status: Chronic Assessment and plan: Continue aspirin, Brilinta, metoprolol. Qualifiers: Coronary Disease-Associated Artery/Lesion type: [place] artery [place] vs. transplanted heart: [place] heart Associated angina: with unstable angina Qualified Code(s): I25.110 - Atherosclerotic heart disease of [place] coronary artery with unstable angina pectoris (3) Elevated troponin Current Visit: Yes Status: Acute Assessment and plan: Troponin 0.09. Patient has chronic troponin elevation. She denies any chest pain at this time. We will continue to trend troponins. We will get a limited echocardiogram. (4) Hypertension Current Visit: Yes Status: Chronic Assessment and plan: Continue home medications. Monitor blood pressure closely. Qualifiers: Hypertension type: essential hypertension Qualified Code(s): I10 - Es sential (primary) hypertension (5) Diabetes mellitus, type II Current Visit: Yes Status: Chronic Assessment and plan: Uncontrolled. Check A1c. Sliding scale plus Levemir. Qualifiers: Diabetes mellitus intermediate card tender insulin use: without intermediate card tender use Diabetes m ellitus complication status: without complication Qualified Code(s): E11.9 - Type 2 diabetes mellitus without complications - Time Spent With Patient Total time spent is greater than 50% in coordination of care (as documented) at patient's floor/unit and/or counseling patient:
[2017-12-17] MEDS: Insulin LISPRO 300 UNITS/3 ML VIAL SQ SCH ×4 (12:37→20:07)
[2017-12-17] MEDS ORDERED: *HR* OxyCODONE/APAP 10/325 TABLET PO PRN (13:26)
[2017-12-17 15:44] LABS: Bilirubin,Urine Negative (Negative); Blood,Urine Negative (Negative); Clarity,Urine Clear (Clear); Color,Urine Yellow (Yellow); Glucose,Urine (UA) 500 mg/dL (Normal); Ketones,Urine Negative (Negative); Leukocyte Esterase,Urine Negative (Negative); Nitrite,Urine Negative (Negative); PH,Urine 5.5 pH Units (5.0-8.0); Protein,Urine 30 mg/dL (Neg-Trace); Specific Gravity,Urine 1.019 (1.010-1.025); Urobilinogen,Urine Normal (Normal)
[2017-12-17 15:45] LABS: Bacteria,Urine None Seen per hpf (None-Few); Hyaline Casts,Urine None Seen per lpf (None-Few); Squamous Epithelial Cell,Urine Many per lpf (None-Few); WBC,Urine 0-3 per hpf (0-3)
[2017-12-17] MEDS: Furosemide 40 MG/4 ML VIAL IVP SCH (17:28)
[2017-12-17] MEDS ORDERED: *HR* Heparin 5,000 UNIT/ML VIAL SQ SCH (18:00)
[2017-12-17] MEDS ORDERED: *HR* Heparin 5,000 UNIT/ML VIAL IVP PRN (20:54)
[2017-12-17] MEDS ORDERED: *HR* Heparin 5,000 UNIT/ML VIAL IVP ONE (20:54)
[2017-12-17] MEDS ORDERED: 0.9 % Sodium Chloride 1,000 ML ONE (21:08)
[2017-12-17 21:39] LABS: Heparin anti-factor XA UFH 0.07 IU/mL (0.30-0.70)
[2017-12-17 21:41] LABS: Activated Partial Thrombo Time 28.1 Seconds (26.0-36.0)
[2017-12-17] MEDS: Heparin 25,000 UNIT/500 ML D5W 25,000 UNIT/500 ML BAG IVC SCH (21:59)
[2017-12-17] MEDS: *HR* Ticagrelor 90 MG TABLET PO SCH (22:03)
--- NOTE | 2017-12-17 22:17 | Event Note ---
Date of Encounter: 12/17/17 Time of Encounter: 22:01 Notified of critical lab of increase trop increase to 0.55 up form 0.40 from previous, results today. Currently receiving heparin drip, patients is resting comfortably, denies chest pain, vital signs remain stable. Cardiology consult is pending. Heparin drip infusion ongoing for past 2 hours. Continue with heparin drip. Will continue to monitor vital signs, and telemetry closely. If s/s worsen, notify provider immediately.
[2017-12-18 04:59] LABS: Hematocrit 31.9 % (35.3-44.9); Mean Corpuscular HGB Conc 32.3 g/dL (31.6-35.5); Mean Corpuscular Hemoglobin 30.7 pg (28.0-33.3); Mean Corpuscular Volume 95.2 fL (83.0-100.0); Mean Platelet Volume 11.3 fL (9.4-12.4); Platelet Count 246 K/mcL (140-400); Red Blood Count 3.35 M/mcL (3.82-4.97); Red Cell Distribution Width 13.9 % (11.5-14.5)
[2017-12-18 05:00] LABS: Hemoglobin 10.3 g/dL (11.5-15.4)
[2017-12-18 05:18] LABS: BUN/Creatinine Ratio 23 (6-26); Blood Urea Nitrogen 25 mg/dL (8-23); Calcium 8.8 mg/dL (8.6-10.3); Carbon Dioxide 28 mEq/L (23-29); Chloride 101 mEq/L (98-107); Glucose 125 mg/dL (70-105); Magnesium 2.3 mg/dL (1.6-2.6); Osmolality,Calculated 290 (280-300); Phosphorous 4.6 mg/dL (2.7-4.5); Potassium 4.1 mEq/L (3.5-5.1); Sodium 137 mEq/L (136-145); eGFR For Non-African Americans 51 (> 60)
[2017-12-18] MEDS: Aspirin Enteric Coated 81 MG Tablet PO SCH (08:47)
[2017-12-18] MEDS: amLODIPine 5 MG TABLET PO SCH (08:47)
[2017-12-18] MEDS: *HR* Ticagrelor 90 MG TABLET PO SCH ×2 (08:47→20:28)
[2017-12-18] MEDS: Insulin LISPRO 300 UNITS/3 ML VIAL SQ SCH ×7 (08:47→20:30)
[2017-12-18] MEDS: Isosorbide MONOnitrate (24 HR) 30 MG TAB.ER.24H PO SCH (08:47)
[2017-12-18] MEDS: Furosemide 40 MG/4 ML VIAL IVP SCH ×2 (08:47→17:22)
[2017-12-18] MEDS: Insulin DETEMIR 100 UNIT/ML X5UNITS SQ SCH ×2 (08:48→20:29)
[2017-12-18] MEDS: Metoprolol XL (24 HR) Succ 25 MG TAB.ER.24H PO SCH (08:50)
[2017-12-18] MEDS: NON-FORMULARY MEDICATION 1 EACH EACH (Potassium Chloride [Klor-Con 10] 10 MEQ) PO SCH (08:50)
[2017-12-18] MEDS ORDERED: Nitroglycerin 0.4 MG TAB.SUBL SL ONE (10:38)
[2017-12-18] MEDS: Nitroglycerin 0.4 MG TAB.SUBL SL PRN ×2 (10:43→10:53)
--- NOTE | 2017-12-18 11:16 | Cardiology Consult Note ---
<AlbanGricelda J - Last Filed: 12/18/17 11:06> Date of Encounter: 12/18/17 Time of Encounter: 09:15 Assessment and Plan (1) Congestive heart failure Current Visit: Yes Status: Acute Per cardiology: -Presents with worsening dyspnea on exertion and orthopnea. -Reports NYHA class III symptoms. -BNP 1435. Chest x-ray with pulmonary edema. -On IV lasix. Currently has net positive i/os balance. -Last TTE 09/2017 with LVEF 45%, global. -Agree with IV diuresis. -Strict i/os, fluid restriction, daily weights. -Will continue to monitor. Qualifiers: Heart failure type: systolic Heart failure chronicity: acute on chronic Qualified Code(s): I50.23 - Acute on chronic systolic (congestive) heart failure (2) Elevated troponin Current Visit: Yes Status: Acute Per cardiology: -Troponins 0.05, 0.09, 0.4, 0.55, 0.56 in the setting of CHF. Of note, per review on labs, seems to have chronically elevated troponins also. -NSTEMI type I vs II. -Last TTE 09/2017 with LVEF 45%, global. Previous TTE 07/2017 with LVEF 55-60%. -ECG with increase prominance of ST depressions noted on previous ECG. -Denies chest pain. -On asa, statin, brilinta, BB, Heparin drip. -[facility] 12/2016 with PCI to RCA for STEMI then underwent staged PCI to LAD and OM, has remaining mild CAD. -Will repeat troponin now. -Continue heparin drip. -Will continue to monitor. (3) CAD (coronary artery disease) Current Visit: Yes Status: Chronic Per cardiology: -Known CAD -See elevated troponin as above. Qualifiers: Coronary Disease-Associated Artery/Lesion type: [place] artery [place] vs. transplanted heart: [place] heart Associated angina: without angina Qualified Code(s): I25.10 - Atherosclerotic heart disease of [place] coronary artery without angina pectoris Discussion w patient/family: The assessment and plan as outlined above was discussed with the patient who expressed understanding and agreement. All questions were answered. Thank you for involving us in the care of your patient. Please call with any questions. Discussed and reviewed with Dr.John Nina. History of Present Illness Consult date: 12/17/17 Requesting physician: Maik Mares Consult reason: elevated troponin, CHF Chief complaint: shortness of breath History of present illness: Ms. Valverde is a 72 year old female with a relevant past medical history of [place], CAD, PCI, HTN, DM, gout, hyperthyroidism, neuropathy, LV systolic dysfunction who presented to [facility] with complaints of dyspnea on exetion. Also reports orthopnea. Patient denies chest pain. Denies peripheral edema. Reports breathing today is about the same. Past Med Surg Social Fam HX - Past Medical History Attestation: Yes The following information was validated with the patient. Source: patient, old records reviewed Medical history: cardiomyopathy, coronary artery disease, diabetes, hyperlipi demia, hypertension, myocardial infarction, peripheral artery disease, renal disease Additional medical history: gout Psychiatric history: anxiety - Past Surgical History Surgical History: angioplasty/stent Additional surgical history: mid LAD and prox OM drug eluding stents. Heart St ents. Tubal Ligation - Social History Smoking Status: Unknown if ever smoked Smokeless Tobacco Status: No Alcohol use: none Drug use: none - Family History Maternal Living Status: Paternal Living Status: Medications and Allergies Aspirin [Lo-Dose Aspirin EC] 81 mg PO DAILY 08/03/17 [History] Atorvastatin [Lipitor] 40 mg PO HS 08/03/17 [History] Insulin ASPART [Novolog Flexpen] 5 unit SQ TIDWM PRN 08/03/17 [History] Insulin Glargine,Hum.rec.anlog [Lantus Solostar] 5 - 10 unit SQ QPM 08/03/17 [History] Oxycodone HCl/Acetaminophen [Percocet 10-325 mg Tablet] 1 tab PO Q8H PRN 08/03/17 [History] Ticagrelor [Brilinta] 90 mg PO BID 08/03/17 [History] amLODIPine [Norvasc] 5 mg PO DAILY 08/03/17 [History] Calcium Carbonate [Tums] 1,000 mg PO TID PRN #60 tab.chew 08/04/17 [Rx] Albuterol Sulfate [Ventolin Hfa] 2 puff IH Q4HR PRN #1 hfa.aer.ad 09/30/17 [Rx] Furosemide [Lasix] 40 mg PO DAILY 12/17/17 [History] Potassium Chloride [Klor-Con 10] 10 meq PO DAILY 12/17/17 [History] Allergy/AdvReac Type Severity Reaction Status Date / Time codeine Allergy Rash Verified 12/17/17 10:11 gabapentin Allergy Rash Verified 12/17/17 10:11 All Systems Review: The remainder of the systems were reviewed and are negative - Cardiovascular Cardiovascular: as per HPI, dyspnea on exertion, orthopnea Physical Examination Vital Signs, Last 4 Hours Temp Pulse Resp BP Pulse Ox 12/18/17 08:45 96 12/18/17 08:00 98.3 F 91 16 152/78 96 General: Conversant, No Apparent Distress HEENT: Atraumatic, Normocephaly, Mucus Membranes Moist Neck: No JVD, Normal carotid pulses Cardiac: Reg Rate and Rhythm, Normal S1 and S2, No Murmur Lungs: Other (Lung sounds diminished to bilateral lugn bases. ) Neuro: Alert and responsive, No focal deficits noted Abdomen: Soft, Non-Tender Skin: No rashes noted on visualized skin Musculoskeletal: No Chest Wall Tenderness Extremities: No Clubbing, No Cyanosis, No Edema, Normal Pulses Results 12/18/17 03:59 12/18/17 03:59 Lab Results Active Medications Albuterol Sulfate (Proventil Neb) 2.5 mg IH [id number] PRN; Protocol PRN Reason: Shortness Of Breath/Wheezing Stop: 06/18/18 09:56 Amlodipine Besylate (Norvasc) 5 mg PO DAILY RYAN; Protocol Stop: 06/19/18 09:01 Last Admin: 12/18/17 08:47 Dose: 5 mg Aspirin (Aspirin Ec) 81 mg PO DAILY RYAN Stop: 06/19/18 09:01 Last Admin: 12/18/17 08:47 Dose: 81 mg Atorvastatin Calcium (Lipitor) 40 mg PO HS RYAN Stop: 06/18/18 21:01 Last Admin: 12/17/17 22:03 Dose: 40 mg Calcium Carbonate (Tums) 1,000 mg PO TID PRN; Protocol PRN Reason: Indigestion Stop: 06/18/18 13:27 Last Admin: 12/17/17 23:14 Dose: 1,000 mg Dextrose/Water (Dextrose 50% (Syg)) 25 ml IVP AD PRN PRN Reason: Hypoglycemia Stop: 06/18/18 09:57 Furosemide (Lasix) 40 mg IVP BIDDIURETIC RYAN Stop: 06/18/18 17:01 Last Admin: 12/18/17 08:47 Dose: 40 mg Glucagon (Glucagen) 1 mg IM ONCE PRN PRN Reason: Hypoglycemia Stop: 06/18/18 09:57 Glucose (Gluctose) 15 gm PO ONCE PRN PRN Reason: Hypoglycemia Stop: 06/18/18 09:57 Glucose (Gluctose) 30 gm PO ONCE PRN PRN Reason: Hypoglycemia Stop: 06/18/18 09:57 Heparin Sodium (Porcine) (Heparin) 3,600 unit 60 unit/kg (3600 unit) IVP Q6HR PRN PRN Reason: SEE COMMENTS Stop: 06/18/18 20:55 Heparin Sodium (Porcine) (Heparin) 1,800 unit 30 unit/kg (1800 unit) IVP Q6H PRN PRN Reason: SEE COMMENTS Stop: 06/18/18 20:55 Dextrose (Dextrose 5%) 1,000 mls @ 100 mls/hr IVC .Q10H PRN PRN Reason: HYPOGLYCEMIA Stop: 06/18/18 09:57 Heparin Sodium/Dextrose (Heparin 25,000 Unit/500 Ml D5w) 25,000 unit in 500 mls @ 14.54 mls/hr IVC .Q24H [facility]; Protocol Stop: 06/18/18 21:01 Last Titration: 12/18/17 06:24 Dose: 9 unit/kg/hr, 10.905 mls/hr Insulin Detemir (Levemir) 10 unit 0.15 unit/kg (10 unit) SQ BID [facility] Stop: 06/18/18 10:01 Last Admin: 12/18/17 08:48 Dose: Not Given Insulin Human Lispro (Humalog) 4 units 0.05 units/kg (4 units) SQ TIDWM [facility] Stop: 06/18/18 12:01 Last Admin: 12/18/17 08:48 Dose: Not Given Insulin Human Lispro (Humalog) 0 units SQ ACHS [facility]; Protocol Stop: 06/18/18 16:31 Last Admin: 12/18/17 08:47 Dose: Not Given Isosorbide Mononitrate (Imdur) 30 mg PO DAILY [facility] Stop: 06/19/18 09:01 Last Admin: 12/18/17 08:47 Dose: 30 mg Metoprolol Succinate (Toprol Xl) 12.5 mg PO DAILY RYAN Stop: 06/19/18 10:01 Last Admin: 12/18/17 08:50 Dose: 12.5 mg Naloxone HCl (Narcan) 0.4 mg IVP Q2MIN PRN PRN Reason: SEE COMMENTS Stop: 06/18/18 09:53 Nitroglycerin (Nitroglycerin) 0.4 mg SL Q5MIN PRN PRN Reason: Chest Pain Stop: 06/19/18 10:37 Last Admin: 12/18/17 10:53 Dose: 0.4 mg Non-Formulary Medication (Potassium Chloride [Klor-Con 10]) 10 meq PO DAILY RYAN Stop: 06/19/18 09:01 Last Admin: 12/18/17 08:50 Dose: Not Given Oxycodone/Acetaminophen (Percocet 10/325) 1 each PO Q8H PRN PRN Reason: mild to moderate pain Stop: 06/18/18 13:27 Last Admin: 12/17/17 22:11 Dose: 1 each Ticagrelor (Brilinta) 90 mg PO BID RYAN Stop: 06/18/18 21:01 Last Admin: 12/18/17 08:47 Dose: 90 mg Tramadol HCl (Ultram) 50 mg PO Q6HR PRN PRN Reason: Moderate Pain Stop: 06/18/18 09:53 Laboratory Tests 12/17/17 12/17/17 12/17/17 08:24 08:24 08:24 WBC Hgb 11.9 Creatinine Troponin I 0.05 H* B-Natriuretic Peptide 1435 H 12/17/17 12/17/17 12/17/17 10:14 15:33 21:15 WBC Hgb Creatinine Troponin I 0.09 H* 0.40 H* 0.55 H* B-Natriuretic Peptide 12/18/17 12/18/17 12/18/17 03:59 03:59 03:59 WBC 13.1 H Hgb 10.3 L D Creatinine 1.07 Troponin I 0.56 H* B-Natriuretic Peptide - Imaging and Cardiology Chest Xray: report reviewed Echo: report reviewed Cardiac cath: report reviewed - EKG Interpretation EKG results cardiology: personally reviewed (ECG with SR, HR 89. St and T wave abnormalities noted.), other (Telemetry reviewed with average HR previous 12 hours noted to be 88, SR. PVCs and PACs noted.) Consult Discharge Plan - Plan Referrals: Justin Burroughs MD [Primary Care Provider] - <Umair Nina - Last Filed: 12/18/17 12:06> - Attending Attestation I have personally performed a face to face evaluation on this patient. I have reviewed and agree with the care plan. History and Exam by me shows: CHF, mildly elevated trop. Would treat CHF first but will likely require LHC. Assessment and Plan Discussion w patient/family: The assessment and plan as outlined above was discussed with the patient and/or family members who expressed understanding and agreement. All questions were answered. Thank you for involving us in the care of your patient. Please call with any questions. History of Present Illness History of present illness: Ms. Valverde is a 72 year old female All Systems Review: The remainder of the systems were reviewed and are negative Physical Examination Vital Signs, Last 4 Hours Pulse Ox 12/18/17 08:45 96 Results 12/18/17 03:59 12/18/17 03:59 Lab Results 12/17/17 12/17/17 12/17/17 15:33 21:15 21:15 WBC Hgb Hct Plt Count INR 1.0 APTT 28.1 Sodium Potassium Chloride Carbon Dioxide BUN Creatinine Glucose Calcium Magnesium Troponin I 0.40 H* 0.55 H* TSH 12/18/17 12/18/17 12/18/17 03:59 03:59 03:59 WBC 13.1 H Hgb 10.3 L D Hct 31.9 L Plt Count 246 INR APTT Sodium 137 Potassium 4.1 Chloride 101 Carbon Dioxide 28 BUN 25 H Creatinine 1.07 Glucose 125 H Calcium 8.8 Magnesium 2.3 Troponin I TSH 6.869 H 12/18/17 03:59 WBC Hgb Hct Plt Count INR APTT Sodium Potassium Chloride Carbon Dioxide BUN Creatinine Glucose Calcium Magnesium Troponin I 0.56 H* TSH
--- NOTE | 2017-12-18 14:28 | Internal Med Progress Note ---
Hospitalist Progress Note - Encounter Date of Encounter: 12/18/17 Time of Encounter: 14:26 - Subjective Interval History: Patient evaluated earlier today. Did complain of left-sided chest and shoulder pain radiating down to the left lateral wall. She reports that the pain began this morning. It improved after she received nitroglycerin today. Shortness of breath is improving. - Exam Vitals: Temp Pulse Resp BP Pulse Ox 100.1 F H 90 17 125/71 96 12/18/17 12:00 12/18/17 12:00 12/18/17 12:00 12/18/17 12:00 12/18/17 12:00 Exam: General: Patient is alert, no acute distress, oriented x 3 Respiratory: Good respiratory effort. Normal breath sounds. No wheezing or crackles. Cardiovascular: Regular rate and rhythm. S1 and S2 normal. Abdomen: Abdomen is soft, nontender. Bowel sounds are present Musculoskeletal: Spontaneously moving all extremities , pedal edema present Skin: warm, dry, intact. Neuro: Alert oriented x 3 normal cranial nerves, no focal deficits - Assessment and Plan (1) Congestive heart failure Current Visit: Yes Status: Acute Assessment and Plan: Continue intravenous Lasix. Patient is clinically feeling better. Echocardiog nila shows EF of 40% with global left ventricle systolic dysfunction. Troponins are elevated. Patient on IV heparin drip. Cardiology input appreciated. High risk for complications. (2) CAD (coronary artery disease) Current Visit: Yes Status: Chronic Assessment and Plan: Patient with history of coronary artery disease. Troponins trended up with a peak of 0.55. Patient on IV heparin. (3) Elevated troponin Current Visit: Yes Status: Acute Assessment and Plan: Patient is troponins are elevated. Concerning for non-ST elevation SD versus CHF related elevation. Continue treatment with IV heparin. Cardiology consulted. Patient may need left heart catheterization. (4) Hypertension Current Visit: Yes Status: Chronic Assessment and Plan: Blood pressure is fairly controlled. Continue current medication regimen. (5) Diabetes mellitus, type II Current Visit: Yes Status: Chronic Assessment and Plan: Continue sliding scale insulin. Continue to monitor blood sugars. Blood sugars have been better controlled. DVT Prophylaxis: On IV heparin - Time Spent with Patient Total time spent is greater than 50% in coordination of care (as documented) at patient's floor/unit and/or counseling patient: Internal Medicine: Result - Labs CBC & Chem 7: 12/18/17 03:59 12/18/17 03:59 Labs: Short CBC 12/18/17 Range/Units 03:59 WBC 13.1 H (4.3-11.1) K/mcL Hgb 10.3 L D (11.5-15.4) g/dL Hct 31.9 L (35.3-44.9) % Plt Count 246 (140-400) K/mcL BMP 12/18/17 03:59 Sodium 137 Potassium 4.1 Chloride 101 Carbon Dioxide 28 BUN 25 H Creatinine 1.07 Glucose 125 H Calcium 8.8 Cardiac Enzymes 12/17/17 12/17/17 12/18/17 Range/Units 15:33 21:15 03:59 Troponin I 0.40 H* 0.55 H* 0.56 H* (< 0.04) ng/mL 12/18/17 Range/Units 12:50 Troponin I 0.51 H* (< 0.04) ng/mL Urine 12/17/17 Range/Units 15:20 Urine Color Yellow (Yellow) Urine Clarity Clear (Clear) Urine pH 5.5 (5.0-8.0) pH Units Ur Specific [place] 1.019 (1.010-1.025) Urine Protein 30 H (Neg-Trace) mg/dL Urine Glucose (UA) 500 H (Normal) mg/dL - ABG Interpretation ABG results: PT/INR, D-dimer PT 11.0 Seconds (9.4-12.1) 12/17/17 21:15 Consult Discharge Plan - Plan Referrals: Justin Burroughs MD [Primary Care Provider] - (1) Congestive heart failure Qualifiers: Heart failure type: systolic Heart failure chronicity: acute on chronic Qualified Code(s): I50.23 - Acute on chronic systolic (congestive) heart failure (2) CAD (coronary artery disease) Qualifiers: Coronary Disease-Associated Artery/Lesion type: [place] artery [place] vs. transplanted heart: [place] heart Associated angina: without angina Qualified Code(s): I25.10 - Atherosclerotic heart disease of [place] coronary artery without angina pectoris (4) Hypertension Qualifiers: Hypertension type: essential hypertension Qualified Code(s): I10 - Essential (primary) hypertension (5) Diabetes mellitus, type II Qualifiers: Diabetes mellitus halfway insulin use: without halfway use Diabetes ada litus complication status: without complication Qualified Code(s): E11.9 - Type 2 diabetes mellitus without complications
[2017-12-18] MEDS: *HR* Heparin 5,000 UNIT/ML VIAL IVP PRN (19:30)
[2017-12-19 01:21] LABS: Basophils % 0.4 %; Eosinophils # 0.2 K/mcL (0.0-0.6); Eosinophils % 1.7 %; Hematocrit 28.4 % (35.3-44.9); Hemoglobin 9.5 g/dL (11.5-15.4); Immature Granulocytes % 0.3 % (0-4); Lymphocytes # 2.5 K/mcL (0.6-4.6); Lymphocytes % 25.9 %; Mean Corpuscular HGB Conc 33.5 g/dL (31.6-35.5); Mean Corpuscular Hemoglobin 31.5 pg (28.0-33.3); Mean Platelet Volume 11.2 fL (9.4-12.4); Monocytes # 1.1 K/mcL (0.0-1.3); Monocytes % 11.3 %; Neutrophils # 5.9 K/mcL (1.6-8.9); Platelet Count 224 K/mcL (140-400); Red Blood Count 3.02 M/mcL (3.82-4.97); Red Cell Distribution Width 13.8 % (11.5-14.5); Segmented Neutrophils % 60.4 %
[2017-12-19 01:39] LABS: Calcium 8.8 mg/dL (8.6-10.3); Potassium 3.2 mEq/L (3.5-5.1)
[2017-12-19] MEDS: Isosorbide MONOnitrate (24 HR) 30 MG TAB.ER.24H PO SCH (07:57)
[2017-12-19] MEDS: Metoprolol XL (24 HR) Succ 25 MG TAB.ER.24H PO SCH (07:57)
[2017-12-19] MEDS: amLODIPine 5 MG TABLET PO SCH (07:57)
[2017-12-19] MEDS: Aspirin Enteric Coated 81 MG Tablet PO SCH (07:57)
[2017-12-19] MEDS: Insulin DETEMIR 100 UNIT/ML X5UNITS SQ SCH ×2 (07:58→20:39)
[2017-12-19] MEDS: Furosemide 40 MG/4 ML VIAL IVP SCH ×2 (07:58→18:00)
[2017-12-19] MEDS: Heparin 25,000 UNIT/500 ML D5W 25,000 UNIT/500 ML BAG IVC SCH ×2 (07:58→14:54)
[2017-12-19] MEDS: Insulin LISPRO 300 UNITS/3 ML VIAL SQ SCH ×6 (07:58→20:37)
[2017-12-19] MEDS: *HR* Ticagrelor 90 MG TABLET PO SCH ×2 (07:58→20:19)
[2017-12-19] MEDS: NON-FORMULARY MEDICATION 1 EACH EACH (Potassium Chloride [Klor-Con 10] 10 MEQ) PO SCH (07:59)
--- NOTE | 2017-12-19 09:53 | Cardiology Progress Note ---
Date of Encounter: 12/19/17 Time of Encounter: 09:30 Assessment and Plan (1) Congestive heart failure Current Visit: Yes Status: Acute Per cardiology: -Presents with worsening dyspnea on exertion and orthopnea. -Reports NYHA class III symptoms. -BNP 1435. Chest x-ray with pulmonary edema. -On IV lasix. Currently has net negative 790ml, improved from yesterday. -Last TTE 09/2017 with LVEF 45%, global. -Reports symptoms mildly improved today. -Agree with IV diuresis. -Strict i/os, fluid restriction, daily weights. -Will continue to monitor. Qualifiers: Heart failure type: systolic Heart failure chronicity: acute on chronic Qualified Code(s): I50.23 - Acute on chronic systolic (congestive) heart failure (2) Elevated troponin Current Visit: Yes Status: Acute Per cardiology: -Troponins 0.05, 0.09, 0.4, 0.55, 0.56, 0.51in the setting of CHF. Of note, per review on labs, seems to have chronically elevated troponins also. -NSTEMI type I vs II. -Last TTE 09/2017 with LVEF 45%, global. Previous TTE 07/2017 with LVEF 55-60%. -TTE this admission with LVEF 40%, global hypokinesus. -ECG with increase prominance of ST depressions noted on previous ECG. -Denies chest pain. -On asa, statin, brilinta, BB, Heparin drip. -[facility] 12/2016 with PCI to RCA for STEMI then underwent staged PCI to LAD and OM, has remaining mild CAD. -Can consider repeat ischemic evaluation pending clinical course. -Will continue to monitor. (3) CAD (coronary artery disease) Current Visit: Yes Status: Chronic Per cardiology: -Known CAD -See elevated troponin as above. Qualifiers: Coronary Disease-Associated Artery/Lesion type: [place] artery [place] vs. transplanted heart: [place] heart Associated angina: without angina Qualified Code(s): I25.10 - Atherosclerotic heart disease of [place] coronary artery without angina pectoris (4) Anemia Current Visit: No Status: Chronic Per cardiology: -Known anemia. -Hemoglobin today 9.5, decreased from admission, however appears to be about her baseline. -Continue to monitor. Qualifiers: Anemia type: iron deficiency Iron deficiency anemia type: unspecified iron deficiency Qualified Code(s): D50.9 - Iron deficiency anemia, unspecified Discussion w patient/family: The assessment and plan as outlined above was discussed with the patient and family who expressed understanding and agreement. All questions were answered. Thank you for involving us in the care of your patient. Please call with any questions. Discussed and reviewed with . Subjective Principal diagnosis: CHF Interval history: Patient reports mild improvement in shortness of breath, however states not back to baseline. Still requiring O2, not normally on at home. Objective Vital Signs, Last 4 Hours Temp Pulse Resp BP Pulse Ox 12/19/17 07:57 98 12/19/17 07:22 98.2 F 81 16 131/64 98 General: Conversant, No Apparent Distress HEENT: Atraumatic, Normocephaly, Mucus Membranes Moist Neck: No JVD, Normal carotid pulses Cardiac: Reg Rate and Rhythm, Normal S1 and S2, No Murmur Lungs: Other (Lung sounds diminshed throughout. ) Neuro: Alert and responsive, No focal deficits noted Abdomen: Soft, Non-Tender Skin: No rashes noted on visualized skin Musculoskeletal: No Chest Wall Tenderness Extremities: No Clubbing, No Cyanosis, No Edema, Normal Pulses Results 12/19/17 00:28 12/19/17 00:28 Lab Results Active Medications Albuterol Sulfate (Proventil Neb) 2.5 mg IH [id number] PRN; Protocol PRN Reason: Shortness Of Breath/Wheezing Stop: 06/18/18 09:56 Amlodipine Besylate (Norvasc) 5 mg PO DAILY RYAN; Protocol Stop: 06/19/18 09:01 Last Admin: 12/19/17 07:57 Dose: 5 mg Aspirin (Aspirin Ec) 81 mg PO DAILY RYAN Stop: 06/19/18 09:01 Last Admin: 12/19/17 07:57 Dose: 81 mg Atorvastatin Calcium (Lipitor) 40 mg PO HS RYAN Stop: 06/18/18 21:01 Last Admin: 12/18/17 20:28 Dose: 40 mg Calcium Carbonate (Tums) 1,000 mg PO TID PRN; Protocol PRN Reason: Indigestion Stop: 06/18/18 13:27 Last Admin: 12/17/17 23:14 Dose: 1,000 mg Dextrose/Water (Dextrose 50% (Syg)) 25 ml IVP AD PRN PRN Reason: Hypoglycemia Stop: 06/18/18 09:57 Furosemide (Lasix) 40 mg IVP BIDDIURETIC RYAN Stop: 06/18/18 17:01 Last Admin: 12/19/17 07:58 Dose: 40 mg Glucagon (Glucagen) 1 mg IM ONCE PRN PRN Reason: Hypoglycemia Stop: 06/18/18 09:57 Glucose (Gluctose) 15 gm PO ONCE PRN PRN Reason: Hypoglycemia Stop: 06/18/18 09:57 Glucose (Gluctose) 30 gm PO ONCE PRN PRN Reason: Hypoglycemia Stop: 06/18/18 09:57 Heparin Sodium (Porcine) (Heparin) 3,600 unit 60 unit/kg (3600 unit) IVP Q6HR PRN PRN Reason: SEE COMMENTS Stop: 06/18/18 20:55 Heparin Sodium (Porcine) (Heparin) 1,800 unit 30 unit/kg (1800 unit) IVP Q6H PRN PRN Reason: SEE COMMENTS Stop: 06/18/18 20:55 Last Admin: 12/18/17 19:30 Dose: 1,800 unit Dextrose (Dextrose 5%) 1,000 mls @ 100 mls/hr IVC .Q10H PRN PRN Reason: HYPOGLYCEMIA Stop: 06/18/18 09:57 Heparin Sodium/Dextrose (Heparin 25,000 Unit/500 Ml D5w) 25,000 unit in 500 mls @ 14.54 mls/hr IVC .Q24H RYAN; Protocol Stop: 06/18/18 21:01 Last Admin: 12/19/17 07:58 Dose: Not Given Insulin Detemir (Levemir) 10 unit 0.15 unit/kg (10 unit) SQ BID [facility] Stop: 06/18/18 10:01 Last Admin: 12/19/17 07:58 Dose: Not Given Insulin Human Lispro (Humalog) 4 units 0.05 units/kg (4 units) SQ TIDWM RYAN Stop: 06/18/18 12:01 Last Admin: 12/19/17 07:58 Dose: Not Given Insulin Human Lispro (Humalog) 0 units SQ ACHS RYAN; Protocol Stop: 06/18/18 16:31 Last Admin: 12/19/17 07:58 Dose: Not Given Isosorbide Mononitrate (Imdur) 30 mg PO DAILY [facility] Stop: 06/19/18 09:01 Last Admin: 12/19/17 07:57 Dose: 30 mg Metoprolol Succinate (Toprol Xl) 12.5 mg PO DAILY [facility] Stop: 06/19/18 10:01 Last Admin: 12/19/17 07:57 Dose: 12.5 mg Naloxone HCl (Narcan) 0.4 mg IVP Q2MIN PRN PRN Reason: SEE COMMENTS Stop: 06/18/18 09:53 Nitroglycerin (Nitroglycerin) 0.4 mg SL Q5MIN PRN PRN Reason: Chest Pain Stop: 06/19/18 10:37 Last Admin: 12/18/17 10:53 Dose: 0.4 mg Non-Formulary Medication (Potassium Chloride [Klor-Con 10]) 10 meq PO DAILY [facility] Stop: 06/19/18 09:01 Last Admin: 12/19/17 07:59 Dose: Not Given Oxycodone/Acetaminophen (Percocet 10/325) 1 each PO Q8H PRN PRN Reason: mild to moderate pain Stop: 06/18/18 13:27 Last Admin: 12/17/17 22:11 Dose: 1 each Ticagrelor (Brilinta) 90 mg PO BID [facility] Stop: 06/18/18 21:01 Last Admin: 12/19/17 07:58 Dose: Not Given Tramadol HCl (Ultram) 50 mg PO Q6HR PRN PRN Reason: Moderate Pain Stop: 06/18/18 09:53 Laboratory Tests 12/17/17 12/17/17 12/17/17 08:24 08:24 10:14 Hgb 11.9 Creatinine Troponin I 0.05 H* 0.09 H* 12/17/17 12/17/17 12/18/17 15:33 21:15 03:59 Hgb Creatinine Troponin I 0.40 H* 0.55 H* 0.56 H* 12/18/17 12/19/17 12/19/17 12:50 00:28 00:28 Hgb 9.5 L Creatinine 1.19 Troponin I 0.51 H* - Imaging and Cardiology Chest Xray: report reviewed Echo: report reviewed Cardiac cath: report reviewed - EKG Interpretation EKG results cardiology: other (Telemetry reviewed with average HR previous 12 hours noted to be 77, SR. PVCs, PACs noted.) Consult Discharge Plan - Plan Referrals: Justin Burroughs MD [Primary Care Provider] -
[2017-12-19 10:50] LABS: Estimated Average Glucose 206 mg/dl; Hemoglobin A1C 8.8 %
--- NOTE | 2017-12-19 15:20 | Internal Med Progress Note ---
Hospitalist Progress Note - Encounter Date of Encounter: 12/19/17 Time of Encounter: 15:18 - Subjective Interval History: Patient feels better but continues to have shortness of breath. No fevers or chills. No chest pain at this time. Denies any nausea or vomiting. No abdominal pain. No hematemesis or melena. Patient admitted here for acute congestive heart failure and is being treated with diuretics. She also developed elevation in troponins with concern for non- ST elevation CA. Plan is to stabilize her CHF and then proceed with left heart catheterization. Patient is currently on IV heparin drip. - Exam Vitals: Temp Pulse Resp BP Pulse Ox 98.4 F 77 16 120/55 98 12/19/17 11:55 12/19/17 11:55 12/19/17 11:55 12/19/17 11:55 12/19/17 11:55 Exam: General: Patient is alert, mild distress, oriented x 3 Respiratory: Normal breath sounds. No wheezing or crackles. Decreased breath sounds at bases Cardiovascular: Regular rate and rhythm. s1 and s2 normal No clicks, rubs, gallops, or murmurs. No pedal edema Abdomen: Abdomen is soft, nontender. Bowel sounds are present Musculoskeletal: Spontaneously moving all extremities Skin: warm, dry, intact. Neuro: Alert oriented x 3 normal cranial nerves, no focal deficits - Assessment and Plan (1) Congestive heart failure Current Visit: Yes Status: Acute Assessment and Plan: Continue Lasix. Patient has had good amount of urine output and has a negative fluid balance. We will continue IV Lasix for another day and transition to oral Lasix tomorrow based on response. (2) CAD (coronary artery disease) Current Visit: Yes Status: Chronic Assessment and Plan: With elevated troponins. Concerning for non-ST elevation CA. On IV heparin. Cardiology following. Continue aspirin, brilinta statin, beta blanche. (3) Elevated troponin Current Visit: Yes Status: Acute Assessment and Plan: Possible non-ST elevation CA. Being treated with IV heparin. Plan for left heart catheterization once CHF improves. (4) Hypertension Current Visit: Yes Status: Chronic Assessment and Plan: Blood pressure is fairly controlled. Continue current medications. (5) Diabetes mellitus, type II Current Visit: Yes Status: Chronic Assessment and Plan: Blood sugars were low this morning. Likely due to patient being nothing by mouth. Will stop pre-meal scheduled insulin. Continue long-acting insulin at a lower dose. (6) Anemia Current Visit: Yes Status: Chronic Assessment and Plan: Patient has anemia with a hemoglobin of 9.5. We will check stool for occult blood. Also check iron, B12 and folic acid levels. (7) Hypothyroidism Current Visit: Yes Status: Suspected Assessment and Plan: Patient has had a TSH. Will check free T4 levels. No history of prior diagnosis of hypothyroidism. If free T4 is low, will start patient on Synthroid DVT Prophylaxis: An IV heparin - Time Spent with Patient Total time spent is greater than 50% in coordination of care (as documented) at patient's floor/unit and/or counseling patient: Internal Medicine: Result - Labs CBC & Chem 7: 12/19/17 00:28 12/19/17 00:28 Labs: Short CBC 12/19/17 Range/Units 00:28 WBC 9.8 (4.3-11.1) K/mcL Hgb 9.5 L (11.5-15.4) g/dL Hct 28.4 L (35.3-44.9) % Plt Count 224 (140-400) K/mcL Neutrophils # 5.9 (1.6-8.9) K/mcL BMP 12/19/17 00:28 Sodium 138 Potassium 3.2 L Chloride 99 Carbon Dioxide 29 BUN 28 H Creatinine 1.19 Glucose 67 L Calcium 8.8 - ABG Interpretation ABG results: PT/INR, D-dimer PT 11.0 Seconds (9.4-12.1) 12/17/17 21:15 Consult Discharge Plan - Plan Referrals: Justin Burroughs MD [Primary Care Provider] - (1) Congestive heart failure Qualifiers: Heart failure type: systolic Heart failure chronicity: acute on chronic Qualified Code(s): I50.23 - Acute on chronic systolic (congestive) heart failure (2) CAD (coronary artery disease) Qualifiers: Coronary Disease-Associated Artery/Lesion type: [place] artery [place] vs. 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
[2017-12-19] MEDS: *HR* Heparin 5,000 UNIT/ML VIAL IVP PRN (20:20)
[2017-12-20 03:02] LABS: Basophils % 0.5 %; Eosinophils # 0.4 K/mcL (0.0-0.6); Eosinophils % 4.5 %; Hematocrit 29.5 % (35.3-44.9); Hemoglobin 9.8 g/dL (11.5-15.4); Immature Granulocytes % 0.2 % (0-4); Lymphocytes # 2.3 K/mcL (0.6-4.6); Lymphocytes % 28.4 %; Mean Corpuscular HGB Conc 33.2 g/dL (31.6-35.5); Mean Corpuscular Hemoglobin 31.3 pg (28.0-33.3); Mean Corpuscular Volume 94.2 fL (83.0-100.0); Monocytes % 11.6 %; Neutrophils # 4.5 K/mcL (1.6-8.9); Platelet Count 237 K/mcL (140-400); Red Blood Count 3.13 M/mcL (3.82-4.97); Red Cell Distribution Width 13.3 % (11.5-14.5); Segmented Neutrophils % 54.8 %
[2017-12-20 03:37] LABS: Calcium 8.9 mg/dL (8.6-10.3); Potassium 3.7 mEq/L (3.5-5.1)
[2017-12-20] MEDS: Insulin LISPRO 300 UNITS/3 ML VIAL SQ SCH ×4 (07:56→22:19)
[2017-12-20] MEDS: Furosemide 40 MG/4 ML VIAL IVP SCH (08:00)
[2017-12-20] MEDS: Insulin DETEMIR 100 UNIT/ML X5UNITS SQ SCH ×2 (08:00→20:04)
[2017-12-20] MEDS: Metoprolol XL (24 HR) Succ 25 MG TAB.ER.24H PO SCH (08:01)
[2017-12-20] MEDS: amLODIPine 5 MG TABLET PO SCH (08:01)
[2017-12-20] MEDS: Aspirin Enteric Coated 81 MG Tablet PO SCH (08:01)
[2017-12-20] MEDS: *HR* Ticagrelor 90 MG TABLET PO SCH ×2 (08:01→20:03)
[2017-12-20] MEDS: NON-FORMULARY MEDICATION 1 EACH EACH (Potassium Chloride [Klor-Con 10] 10 MEQ) PO SCH (08:01)
[2017-12-20] MEDS: Isosorbide MONOnitrate (24 HR) 30 MG TAB.ER.24H PO SCH (08:01)
--- NOTE | 2017-12-20 11:25 | Internal Med Progress Note ---
Hospitalist Progress Note - Encounter Date of Encounter: 12/20/17 Time of Encounter: 10:40 - Subjective Interval History: Patient seen and examined at bedside denies any chest pain this time awaiting left heart catheter has been nothing by mouth after midnight - Exam Vitals: Temp Pulse Resp BP Pulse Ox 98.2 F 76 16 134/69 99 12/20/17 07:16 12/20/17 07:16 12/20/17 07:16 12/20/17 07:16 12/20/17 08:00 Exam: General: Patient is alert, mild distress, oriented x 3 Respiratory: Normal breath sounds. No wheezing or crackles. Decreased breath sounds at bases Cardiovascular: Regular rate and rhythm. s1 and s2 normal No clicks, rubs, gallops, or murmurs. No pedal edema Abdomen: Abdomen is soft, nontender. Bowel sounds are present Musculoskeletal: Spontaneously moving all extremities Skin: warm, dry, intact. Neuro: Alert oriented x 3 normal cranial nerves, no focal deficits - Assessment and Plan (1) Hypertension Current Visit: Yes Status: Chronic Assessment and Plan: Blood pressure stable at this time Continue current medications. (2) Diabetes mellitus, type II Current Visit: Yes Status: Chronic Assessment and Plan: Blood sugars were low this morning. Likely due to patient being nothing by mouth. Will stop pre-meal scheduled insulin. Continue long-acting insulin at a lower dose. 12/20 Blood glucose-stable holding pre-meal schedule insulin due to nothing by mouth continue long-acting insulin at a lower dose-will resume pre-meal once patient is eating (3) Anemia Current Visit: Yes Status: Chronic Assessment and Plan: Patient has anemia with a hemoglobin of 9.5. We will check stool for occult blood. Also check iron, B12 and folic acid levels. 12/20 Hemoglobin 9.8-this appears chronic she does have a history of CKD 3-it appears her baseline is between 11 and 9.5 We will monitor closely since she is on heparin drip (4) CAD (coronary artery disease) Current Visit: Yes Status: Chronic Assessment and Plan: With elevated troponins. Concerning for non-ST elevation HI. On IV heparin. Cardiology following. Continue aspirin, brilinta statin, beta blanche. 12/20 Has history of LH C 12/2016 with PCI to RCA for STEMI then underwent staged PCI to LAD and OM Presenting with elevated troponin concerning for non-ST elevation HI continue with IV heparin- Continue aspirin and statin Brilinta beta blanche Cardiology has been consulted-patient has been nothing by mouth and will undergo a LH C today (5) Elevated troponin Current Visit: Yes Status: Acute Assessment and Plan: Possible non-ST elevation HI. Being treated with IV heparin. Plan for left heart catheterization once CHF improves. 12/20 Seen by cardiology patient is to undergo LHC today (6) Congestive heart failure Current Visit: Yes Status: Acute Assessment and Plan: Continue Lasix. Patient has had good amount of urine output and has a negative fluid balance. We will continue IV Lasix for another day and transition to oral Lasix tomorrow based on response. 12/20 Has had good response to Lasix with a negative fluid balance we will switch to oral Lasix (7) Hypothyroidism Current Visit: Yes Status: Suspected Assessment and Plan: Patient has had a TSH. Will check free T4 levels. No history of prior diagnosis of hypothyroidism. If free T4 is low, will start patient on Synthroid 12/20 This time we will continue to monitor (8) CKD (chronic kidney disease), stage III Current Visit: Yes Status: Acute Assessment and Plan: 1-upon review of records appears patient does have a history of CK D stage III- creatinine is stable at this time we will closely monitor since patient is receiving Lasix as well as undergoing left heart catheter Monitor intake and output and daily weights Maintain MAP >60 DVT Prophylaxis: On heparin drip - Time Spent with Patient Total time spent is greater than 50% in coordination of care (as documented) at patient's floor/unit and/or counseling patient: Internal Medicine: Result - Labs CBC & Chem 7: 12/20/17 02:49 12/20/17 02:49 Labs: Short CBC 12/20/17 Range/Units 02:49 WBC 8.2 (4.3-11.1) K/mcL Hgb 9.8 L (11.5-15.4) g/dL Hct 29.5 L (35.3-44.9) % Plt Count 237 (140-400) K/mcL Neutrophils # 4.5 (1.6-8.9) K/mcL BMP 12/20/17 02:49 Sodium 135 L Potassium 3.7 Chloride 99 Carbon Dioxide 29 BUN 30 H Creatinine 1.20 Glucose 139 H Calcium 8.9 - ABG Interpretation ABG results: PT/INR, D-dimer PT 11.0 Seconds (9.4-12.1) 12/17/17 21:15 Consult Discharge Plan - Plan Referrals: Justin Burroughs MD [Primary Care Provider] - 12/30/17 10:30 am (1) Hypertension Qualifiers: Hypertension type: essential hypertension Qualified Code(s): I10 - Essential (primary) hypertension (2) Diabetes mellitus, type II 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 transplanted heart: [place] heart Associated angina: without angina Qualified Code(s): I25.10 - Atherosclerotic heart disease of [place] coronary artery without angina pectoris (6) Congestive heart failure Qualifiers: Heart failure type: systolic Heart failure chronicity: acute on chronic Qualified Code(s): I50.23 - Acute on chronic systolic (congestive) heart failure (7) Hypothyroidism Qualifiers: Hypothyroidism type: other Qualified Code(s): E03.8 - Other specified hypothyroidism
--- NOTE | 2017-12-20 11:25 | Event Note ---
Date of Encounter: 12/20/17 Time of Encounter: 10:36 - Cardiology Event Note Plan for LHC today for elevated troponin, cardiomyopathy, ECG changes. Patient able to tolerate laying flat. Hemglobin 9.8, within patient's baseline of 8-11s. ON heparin, asa, plavix. Denies bleeding or blood loss. Risks versus benefits of LHC explained to patient and family who state understanding and agree with plan.
[2017-12-20] MEDS ORDERED: *HR* Heparin 10,000 UNIT/10 ML VIAL ONE (15:47)
[2017-12-20] MEDS ORDERED: Heparin 1,000 UNITS/500 mL 500 ML ONE (15:47)
[2017-12-20] MEDS ORDERED: 0.9 % Sodium Chloride 1,000 ML ONE ×2 (15:47→15:51)
[2017-12-20] MEDS ORDERED: Nitroglycerin 1,000 MCG/10 ML VIAL IV ONE (15:48)
[2017-12-20] MEDS ORDERED: ISOVUE-370 200 ML INFUS..BTL ONE (15:48)
[2017-12-20] MEDS ORDERED: *HR* Midazolam HCl 2 MG/2 ML VIAL ONE (15:58)
[2017-12-20] MEDS ORDERED: *HR* FentaNYL (PF) 100 MCG/2 ML VIAL ONE (15:58)
--- NOTE | 2017-12-20 16:45 | Pre-Sedation Evaluation ---
Pre-sedation evaluation - Pre-sedation checklist Date of procedure: 12/20/17 Procedure: Heart cath Recent Vitals: Last Vital Signs Temp 98.2 F 12/20/17 11:00 Pulse 79 12/20/17 11:00 Resp 16 12/20/17 11:00 BP 131/76 12/20/17 11:00 Pulse Ox 100 12/20/17 11:00 H&P (including ROS) documented in medical record: Yes Previous reaction to sedatives/anesthetics: Yes; explain in comment Dietary Status: NPO after Midnight Airway Assessment: Patient can open mouth completely, TMJ function normal, Micrognathia (under-bite, receding chin) absent, Neck with adequate range of motion Dentition: No loose teeth or bridges Possible difficult airway: No ASA Classification *see protocol: CLASS II-Mild systemic disease Plan of Care: Pt appropriate candidate for procedure/moderate/conscious sedation, Risks/benefits of procedure/sedation discussed w/ patient/family Cardiac Registry (Cardio Only) - Functional Capacity Functional Capacity: < 4 METS - Clincal Frailty Scale Clinical Frailty Scale: Vulnerable
--- NOTE | 2017-12-20 16:48 | Invasive Diagnostic Lab Proc ---
Name: Bella Valverde Date of Study: 12/20/2017 Date: 1945 Ht: 59.8in Medical Record#: [id number] Age: 72 Wt: 136.69lb Gender: Female BSA: 1.58 Order #: [id number] BMI: 26.84 Physicians Procedure Physician: Catherine Nina MD, [facility] Referring MD: Referring MD: Staff Name Position Time In Odin Eduin RT (R) Scrub 03:56 PM OdinYesica RT (R) Monitor 03:56 PM Kaleb Novak RN Counter Intelligence Technician 03:56 PM Indications Indication Non-Stemi Procedures Performed Procedure L HRT ARTERY/VENTRICLE ANGIO Pre-Procedure Checklist Informed consent is complete signed and on chart. H&P is on chart. ID band is on and ID verified with patient. Patient NPO for procedure The procedure was described for the patient and questions were answered. Blood Pressure: 134/69 ECG is on chart. Plan of Care Patient will tolerate the procedure without complications. Adequate level of comfort will be maintained. Hemodynamics will remain stable Patient will recover from procedure without complications. Respiratory function will be maintained. Cardiac rhythm will remain stable. Patient temperature will be maintained. Patient and/or family have verbalized understanding of the procedure. Patient Education Chief Complaint/Reason for Test: Cardiac Cath Developmental Category: Geriatric (65+ years) Developmentally Appropriate for Age: Yes Learning Barriers: None Education Needs: Procedure Education Method: Verbal Information Taught: Cardiac Cath Educational Evaluation: Able to repeat information Intravenous Access Time IV Size Location DC'd Fluid/Drip Rate Units RN 03:56 PM 20g 1 1/" Patent On Arrival Lt Arm 0.9NaCl 25 ml/hr Kaleb Novak RN Allergies codeine gabapentin Vital Signs Time BP (mmHg) HR (bpm) O2 Sat. RR (bpm) LOC 04:06 PM / % 5 = Fully awake and oriented or at pre-proc level 04:06 PM / % 4 = Oriented but drowsy 04:01 PM 165 / 80 133 100 % 13 04:06 PM 141 / 67 77 100 % 14 04:11 PM 129 / 68 75 100 % 12 04:16 PM 144 / 67 74 100 % 12 04:21 PM 144 / 69 79 100 % 15 04:26 PM 155 / 75 80 100 % 12 Procedural Medications Time Medication Dose Units Method Given By 03:56 PM Oxygen 2 L/min nasal cannula Kaleb Novak RN 04:07 PM Versed 2 mg Intravenous Kaleb Novak RN 04:07 PM Fentanyl 50 mcg Intravenous Kaleb Novak RN 04:11 PM Lidocaine 2% 20 ml Subcutaneous Catherine Nina MD, [facility] Alexis Score Preprocedure Postprocedure Activity 2- Moves 4 extremities sustained head lift Activity 2- Moves 4 extremities sustained head lift Circulation 2- SBP +/= 20 points of pre-anesthetic level Circulation 2- SBP +/= 20 points of pre-anesthetic level Consciousness 2- Awake and alert oriented x 3 Consciousness 2- Awake and alert oriented x 3 O2 Saturation 2- Able to maintain O2 satruation of 92% on room air O2 Saturation 2- Able to maintain O2 satruation of 92% on room air Respiratory 2- Able to deep breathe and cough well Respiratory 2- Able to deep breathe and cough well Total Score 10 Total Score 10 Contrast Agent: Isovue Diagnostic Contrast: 57 ml Total Contrast: 57 ml Fluoro Dose: 2006 mGy Procedure Log Time Note Enter By 03:47 PM CathStat 03:56 PM Pt arrived to [facility] [employer] 2 at 15:56 tsites 03:56 PM Eduin Newby RT (R) Position: Scrub Time in: 15:56 tsites 03:56 PM Yesica Newby RT (R) Position: Monitor Time in: 15:56 tsites 03:56 PM Kaleb Novak RN Position: Counter Intelligence Technician Time in: 15:56 tsites 03:56 PM Patient charges- Angio tray pack, Navilyst 3mm J, Pulse Oximetry and ACIST tubing and transducer tsites 03:56 PM Physician arrived 15:56 tsites 03:56 PM Meet and greet completed tsites 03:56 PM Sign in performed according to hospital policy. Informed consent was obtained. tsites 03:56 PM Procedure start 15:56 tsites 03:56 PM Case Delayed No tsites 03:57 PM Time: 15:56 Oxygen on at 2 L/min per nasal cannula by Kaleb Novak RN tsites 04:00 PM Vitals capture started with the following parameters, Patient=Adult, Interval=5 min, Initial Xcuboudb=333 mmHg, Deflation Rate=5 mmHg, Cuff placed on Right Arm 04:01 PM MY=019 bpm, ZDCE=646/80 mmhg, OfE2=834.0 %, Resp=13 B/min 04:05 PM Recorded ECG: HR=78 Condition=Condition 1 04:06 PM HR=77 bpm, HUJH=114/67 mmhg, XvP4=457.0 %, Resp=14 B/min 04:06 PM Time: 16:06 Patient comfortable and pain free: Yes tw:06 PM Time: 16:06LOC: 5 = Fully awake and oriented or at pre-proc level twilson 04:07 PM Time: 16:07 Versed 2 mg Intravenous Given [facility] 04:08 PM Time: 16:07 Fentanyl 50 mcg Intravenous Given by Kaleb Novak RN [facility] 04:10 PM Time out was performed according to hospital policy. Conscious sedation and anesthesia was achieved (see medication log with in this report above) twilson 04:11 PM HR=75 bpm, EAAL=957/68 mmhg, PkE6=843.0 %, Resp=12 B/min 04:11 PM Pressure channel 1 zero failed. 04:11 PM Pressure channel 1 zeroed. 04:11 PM Time: 16:11 20 ml Lidocaine 2% to right groin Subcutaneous Given by Catherine Nina MD, [facility] twilson 04:12 PM Access obtained by percutaneous puncture. 5Fr 10cm Terumo Gibson sheath placed in right Femoral artery. [id number] twilson 04:12 PM 5Fr FL 4 catheter inserted over the wire [facility] twilson 04:12 PM Wire removed twilson 04:12 PM LCA angiography performed in multiple views. twilson 04:12 PM Recorded Pressure: Ao, HR=75, Condition=Condition 1 (Aorta) Ao 123/62/88 04:13 PM Recorded Pressure: Ao, HR=73, Condition=Condition 1 (Aorta) Ao 126/58/86 04:14 PM Wire reinserted. twilson 04:15 PM Catheter removed twilson 04:15 PM 5Fr FR 4 catheter inserted over the wire DN twilson 04:15 PM Wire removed twilson 04:16 PM Recorded Pressure: Ao, HR=74, Condition=Condition 1 (Aorta) Ao 48/5/24 04:16 PM HR=74 bpm, JLCU=946/67 mmhg, QlC2=592.0 %, Resp=12 B/min 04:16 PM RCA angiography performed in multiple views. twilson 04:16 PM Wire reinserted. twilson 04:16 PM Catheter removed :16 PM 5Fr Pigtail catheter inserted over the wire [facility] :16 PM Catheter crossed the aortic valve and was selectively placed in the left ventricle. Pressures recorded on pullback for left heart catheterization. tw 04:16 PM Wire removed tw 04:17 PM Pressure channel 1 zero failed. 04:17 PM Pressure channel 1 zeroed. 04:18 PM Recorded Pressure: LV, HR=80, Condition=Condition 1 (Left Ventricle) LV 147/-2/10 04:18 PM Bolus angiogram of left Ventricle complete: 8 ml/sec for a total of 24 mls tw:18 PM Wire reinserted. tw:18 PM Catheter removed tw:18 PM Recorded Pressure: LV, Ao, HR=80, Condition=Condition 1 (Left Ventricle) LV 124/28/31, (Aorta) Ao 127/54/90 04:21 PM Wire removed tw:21 PM Bolus angiogram of right Femoral complete: 4 ml/sec for a total of 7 mls tw: PM HR=79 bpm, ITNM=456/69 mmhg, ZzW7=144.0 %, Resp=15 B/min 04:21 PM Procedure completed at 16:21 12/20/2017: PM Cardiothoracic surgeon consulted by physician Time: 16:06 Patient comfortable and pain free: Yes Time: 16:06LOC: 4 = Oriented but drowsy :23 PM Procedure completed at 16:21 12/20/2017: PM Did you address SADA flow and Dominance? Yes : PM Sign out completed: Radiation Dose 168.65 mGy, 2005.67 cGy/cm2 Fluoro Time: 1.3 Isovue 370 - 200ml contrast 57 ml given by Catherine Nina MD, [facility]. Complications: None. The patient was discharged out of the lab associate in stable condition. Cardiac Rehab Consult needed: NoConfirmed administered medications: Yes : PM Isovue 370 - 200ml,1 Bottle(s) used. :24 PM Arterial sheath pulled, Mynx closure device used and was Successful S/N. : PM Estimated Blood Loss: minimal twilson 04:24 PM Post ECG NSR twilson 04:24 PM Post Blood Pressure 144/69 twilson 04:26 PM HR=80 bpm, IQNT=530/75 mmhg, ZlY1=107.0 %, Resp=12 B/min 04:[address] Foster on the phone. twilson 04:27 PM 16:27 Post Pulses Bilateral DP & PT 2+ twilson 04:27 PM 16:27 Post Pulses Bilateral radial 2+ twilson 04:27 PM Information taught Cardiac Cath and Mynx twilson 04:27 PM Education needs Procedure, Plan of Care, and Responsibilities of Patient in Care twilson 04:27 PM Learning barriers :None twilson 04:27 PM Education Methods Verbal twilson 04:27 PM Education evaluation Able to repeat information twilson 04:27 PM Site status No bleeding/hematoma - Rt Groin as reported by Eduin Newby RT (R) at 16:27 twilson 04:27 PM Opsite applied twilson 04:27 PM Family placed in consult room. twilson 04:28 PM Delay to floor No twilson 04:29 PM Coronary Dominance: right twilson 04:32 PM Report given to Fatoumata PRESCOTT Pt taken to 3B Room #12. 16:32 twilson 04:32 PM Patient out of room: 16:32 twilson 04:33 PM Lesion found in Proximal RCA. Pre Stenosis: 80 Pre SADA Flow: twilson 04:33 PM Lesion found in Mid RCA. Pre Stenosis: 99 Pre SADA Flow: twilson 04:33 PM Right Coronary, Right Posterior Descending Arteries with Right Posterolateral and Acute Marginal branches with 99 % stenosis. If graft is supplying this area, 0 % stenosis twilson 04:33 PM Lesion found in Proximal LAD. Pre Stenosis: 70 Pre SADA Flow: twilson 04:33 PM Proximal Left Anterior Descending Coronary Artery with 70% stenosis. If graft is supplying this territory, 0 % stenosis. twilson 04:33 PM Lesion found in Mid LAD. Pre Stenosis: 20 Pre SADA Flow: twilson 04:33 PM Mid/Distal Left Anterior Descending Coronary Artery and diagonal branches with 20% stenosis. If graft is supplying this area, 0 % stenosis twilson 04:34 PM Lesion found in Proximal Circumflex. Pre Stenosis: 90 Pre SADA Flow: twilson 04:34 PM Lesion found in Mid Circumflex. Pre Stenosis: 90 Pre SADA Flow: twilson 04:34 PM Lesion found in 1st Marginal. Pre Stenosis: 99 Pre SADA Flow: twilson 04:34 PM Circumflex, Obtuse Marginal, Left Posterior Descending, and Left Posterolateral Coronary Arteries with 99 % stenosis. If graft is supplying this area, 0 % stenosis twilson Complications Complication None Hemodynamics Pressures Site Systolic/A Wave Diastolic/V Wave Mean AO 123 62 88 AO 126 58 86 AO 48 5 24 LV 147 -2 10 LV 124 28 31 AO 127 54 90 Post Procedure Information Blood Pressure: 144/69 mmHg Rhythm: NSR Post procedural instructions were given Surgery consult for CABG Closure Device Time Device Success/Fail 12/20/2017 4:28:00 PM MynxGrip Successful Site Checks Time Location Status Staff Sheath In? Note 04:27 PM Rt Groin No bleeding/hematoma Eduin Newby RT (R) Pulses Time Site Pre-Procedure Post-Procedure Note 12/20/2017 3:56:00 PM Bilateral DP & PT 2+ 12/20/2017 3:56:00 PM Bilateral radial 2+ 4:27:00 PM Bilateral DP & PT 2+ 4:27:00 PM Bilateral radial 2+ Updated by Yesica Mosher RT (R) on 12/20/2017 4:39:57 PM Yesica Mosher RT electronically signed on 12/20/2017 4:40:36 PM with status of Final
[2017-12-20] MEDS ORDERED: Furosemide 40 MG TABLET PO SCH (17:00)
--- NOTE | 2017-12-20 17:10 | Electrocardiograph Report ---
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
--- NOTE | 2017-12-20 17:13 | Electrocardiograph Report ---
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
--- NOTE | 2017-12-20 17:16 | Cardiothoracic Consult Note ---
Date of Encounter: 12/20/17 Time of Encounter: 17:12 Assessment and Plan (1) STEMI (ST elevation myocardial infarction) Current Visit: No Status: Acute The assessment and plan as outlined above was discussed with the patient and/or family members who expressed understanding and agreement. All questions were answered. The patient has decreased ventricular function with symptoms of congestive heart failure. The right coronary artery is small and is probably not graftable. The LAD and circumflex coronary arteries are graftable. The patient is at high risk for surgery because of her poor ventricular function. High risk angioplasty of her LAD and circumflex is another option which the patient wishes to discuss with her web site project manager. I will order a full echocardiogram of the heart, as the patient had mild to moderate mitral regurgitation in September. I will also order a carotid duplex as the patient has multivessel arterial disease. Qualifiers: Involved coronary artery: right coronary artery Qualified Code(s): I21.11 - ST elevation (STEMI) myocardial infarction involving right coronary artery - History of Present Illness History of present illness: Ms. Valverde is a 72 year old female The patient is a 72-year-old female who presented with shortness of breath and dyspnea on exertion. BNP was elevated at 1435. Troponin was positive at 0.55. Chest x-ray revealed pulmonary edema. Echocardiogram done in September revealed mild to moderate mitral regurgitation and mild pulmonary hypertension. A limited echocardiogram done on this admission revealed an ejection fraction of 40%. Cardiac catheterization done today revealed an ejection fraction of 30%. The right coronary artery was significantly blocked, but was quite a small vess el and most likely would not be graftable. The circumflex coronary artery had a 80-90% blockage would be a graftable vessel. The LAD was 60-70% and would also be graftable. Past medical history is notable for diabetes on insulin. She does have peripheral arterial disease with pain in her legs on walking. However, her walking is mostly limited by dyspnea on exertion, she can only walk half a block. Medications include Brilinta, which would need to be stopped for 5-7 days prior to surgery. Social history. She lives in [place] with her . She does not smoke. Rarely drinks alcohol. Review of systems is negative for stroke or TIA. Negative for saphenous vein varicosities or strippings. Past Med Surg Social Fam HX - Past Medical History Medical history: cardiomyopathy, coronary artery disease, diabetes, hyp erlipidemia, hypertension, myocardial infarction, peripheral artery disease, renal disease Additional medical history: gout Psychiatric history: anxiety - Past Surgical History Surgical History: angioplasty/stent Additional surgical history: mid LAD and prox OM drug eluding stents. Heart Stents. Tubal Ligation - Social History Smoking Status: Unknown if ever smoked Smokeless Tobacco Status: No Alcohol use: none Drug use: none - Family History Maternal Living Status: Paternal Living Status: Medications and Allergies Aspirin [Lo-Dose Aspirin EC] 81 mg PO DAILY 08/03/17 [History] Atorvastatin [Lipitor] 40 mg PO HS 08/03/17 [History] Insulin ASPART [Novolog Flexpen] 5 unit SQ TIDWM PRN 08/03/17 [History] Insulin Glargine,Hum.rec.anlog [Lantus Solostar] 5 - 10 unit SQ QPM 08/03/17 [History] Oxycodone HCl/Acetaminophen [Percocet 10-325 mg Tablet] 1 tab PO Q8H PRN 08/03/17 [History] Ticagrelor [Brilinta] 90 mg PO BID 08/03/17 [History] amLODIPine [Norvasc] 5 mg PO DAILY 08/03/17 [History] Calcium Carbonate [Tums] 1,000 mg PO TID PRN #60 tab.chew 08/04/17 [Rx] Albuterol Sulfate [Ventolin Hfa] 2 puff IH Q4HR PRN #1 hfa.aer.ad 09/30/17 [Rx] Furosemide [Lasix] 40 mg PO DAILY 12/17/17 [History] Potassium Chloride [Klor-Con 10] 10 meq PO DAILY 12/17/17 [History] Allergy/AdvReac Type Severity Reaction Status Date / Time codeine Allergy Rash Verified 12/17/17 10:11 gabapentin Allergy Rash Verified 12/17/17 10:11 All Systems Review: The remainder of the systems were reviewed and are negative Physical Examination Vital Signs, Last 4 Hours Pulse Resp BP Pulse Ox 12/20/17 16:46 78 17 153/71 100 Pupils are equal, round and reactive to light and accommodation. Teeth are in poor repair. Neck is supple. Trachea in the midline. No carotid bruits. Lungs are clear to percussion and auscultation. Heart is in a regular rate and rhythm. No murmurs, gallops or rubs. Abdomen is benign. No tenderness, rebound or guarding. Extremities without edema. No saphenous vein varicosities or strippings. Cranial nerves, motor and sensory intact. Results 12/20/17 02:49 12/20/17 02:49 Lab Results, Last 24 hours 12/20/17 12/20/17 02:49 02:49 WBC 8.2 Hgb 9.8 L Hct 29.5 L Plt Count 237 Sodium 135 L Potassium 3.7 Chloride 99 Carbon Dioxide 29 BUN 30 H Creatinine 1.20 Glucose 139 H Calcium 8.9 Consult Discharge Plan - Plan Referrals: Justin Burroughs MD [Primary Care Provider] - 12/30/17 10:30 am
[2017-12-20] MEDS ORDERED: Insulin LISPRO 300 UNITS/3 ML VIAL SQ SCH (21:30)
[2017-12-21 02:00] LABS: Potassium 3.9 mEq/L (3.5-5.1)
[2017-12-21 05:03] LABS: Basophils % 0.4 %; Eosinophils # 0.3 K/mcL (0.0-0.6); Eosinophils % 4.2 %; Hematocrit 30.3 % (35.3-44.9); Hemoglobin 10.1 g/dL (11.5-15.4); Immature Granulocytes % 0.4 % (0-4); Mean Corpuscular HGB Conc 33.3 g/dL (31.6-35.5); Mean Corpuscular Hemoglobin 31.4 pg (28.0-33.3); Mean Corpuscular Volume 94.1 fL (83.0-100.0); Mean Platelet Volume 11.4 fL (9.4-12.4); Monocytes # 0.8 K/mcL (0.0-1.3); Monocytes % 11.1 %; Neutrophils # 4.3 K/mcL (1.6-8.9); Platelet Count 240 K/mcL (140-400); Red Blood Count 3.22 M/mcL (3.82-4.97); Red Cell Distribution Width 13.2 % (11.5-14.5); Segmented Neutrophils % 56.9 %
[2017-12-21] MEDS ORDERED: 0.9 % Sodium Chloride 1,000 ML IVC SCH (07:45)
[2017-12-21] MEDS: Insulin LISPRO 300 UNITS/3 ML VIAL SQ SCH ×2 (07:47→12:10)
[2017-12-21] MEDS ORDERED: Perflutren Lipid Microsphere 1.3 ML in 0.9 % Sodium Chloride 8.7 ML IVP ONE ×2 (07:59→08:30)
[2017-12-21] MEDS: Isosorbide MONOnitrate (24 HR) 30 MG TAB.ER.24H PO SCH (10:32)
[2017-12-21] MEDS: *HR* Ticagrelor 90 MG TABLET PO SCH (10:32)
[2017-12-21] MEDS: Aspirin Enteric Coated 81 MG Tablet PO SCH (10:32)
[2017-12-21] MEDS: Metoprolol XL (24 HR) Succ 25 MG TAB.ER.24H PO SCH (10:32)
[2017-12-21] MEDS: Insulin DETEMIR 100 UNIT/ML X5UNITS SQ SCH (10:35)
[2017-12-21] MEDS ORDERED: *HR* Heparin 5,000 UNIT/ML VIAL IVP PRN ×2 (10:38)
[2017-12-21] MEDS ORDERED: *HR* Heparin 5,000 UNIT/ML VIAL IVP ONE (10:38)
--- NOTE | 2017-12-21 10:43 | Cardiology Progress Note ---
Date of Encounter: 12/21/17 Time of Encounter: 09:00 Assessment and Plan (1) Congestive heart failure Current Visit: Yes Status: Acute Per cardiology: -Presents with worsening dyspnea on exertion and orthopnea. -Reports NYHA class III symptoms. -BNP 1435. Chest x-ray with pulmonary edema. -On po lasix Currently has net negative 2700ml, improved from yesterday. -Last TTE 09/2017 with LVEF 45%, global. -Reports symptoms improved today. -Of note, renal function slightly worse today, continue to monitor closely. Qualifiers: Heart failure type: systolic Heart failure chronicity: acute on chronic Qualified Code(s): I50.23 - Acute on chronic systolic (congestive) heart failure (2) Elevated troponin Current Visit: Yes Status: Acute Per cardiology: -Troponins 0.05, 0.09, 0.4, 0.55, 0.56, 0.51in the setting of CHF. Of note, per review on labs, seems to have chronically elevated troponins also. -NSTEMI type I vs II. -Last TTE 09/2017 with LVEF 45%, global. Previous TTE 07/2017 with LVEF 55-60%. -TTE this admission with LVEF 40%, global hypokinesus. -ECG with increase prominance of ST depressions noted on previous ECG. -Denies chest pain. -On asa, statin, brilinta, BB, Heparin drip. -[facility] 12/2016 with PCI to RCA for STEMI then underwent staged PCI to LAD and OM, has remaining mild CAD. -[facility] yesterday with severe triple vessel disease, CT surgery consulted. -Discussed and reviewed with patient, who would like to pursue CABG, however patient thinks she would like transferred to another facility. Patient states had CABG in [place] and did well. Hospitalist notified. -Will restart heparin drip. -Cardiology will sign off and will follow in outpatient setting, follow up set. (3) CAD (coronary artery disease) Current Visit: Yes Status: Chronic Per cardiology: -Known CAD -See elevated troponin as above. Qualifiers: Coronary Disease-Associated Artery/Lesion type: [place] artery [place] vs. transplanted heart: [place] heart Associated angina: without angina Qualified Code(s): I25.10 - Atherosclerotic heart disease of [place] coronary artery without angina pectoris (4) Anemia Current Visit: Yes Status: Chronic Per cardiology: -Known anemia. -Hemoglobin today 10.1, decreased from admission, however appears to be about her baseline. -Continue to monitor. Qualifiers: Anemia type: iron deficiency Iron deficiency anemia type: unspecified iron deficiency Qualified Code(s): D50.9 - Iron deficiency anemia, unspecified Discussion w patient/family: The assessment and plan as outlined above was discussed with the patient and family who expressed understanding and agreement. All questions were answered. Thank you for involving us in the care of your patient. Please call with any questions. Discussed and reviewed with . Subjective Principal diagnosis: CHF Interval history: Patient reports improvement in shortness of breath. Denies chest pain. Objective Vital Signs, Last 4 Hours Temp Pulse Resp BP Pulse Ox 12/21/17 07:14 98.6 F 75 16 123/65 96 General: Conversant, No Apparent Distress HEENT: Atraumatic, Normocephaly, Mucus Membranes Moist Neck: No JVD, Normal carotid pulses Cardiac: Reg Rate and Rhythm, Normal S1 and S2, No Murmur Lungs: Normal Breath Sounds, No Wheeze, Rales, Rhonchi Neuro: Alert and responsive, No focal deficits noted Abdomen: Soft, Non-Tender Skin: No rashes noted on visualized skin, Other (Right groin access site with dressing clean, dry, intact. ) Musculoskeletal: No Chest Wall Tenderness Extremities: No Clubbing, No Cyanosis, No Edema, Normal Pulses Results 12/21/17 04:08 12/21/17 00:25 Lab Results Active Medications Albuterol Sulfate (Proventil Neb) 2.5 mg IH [id number] PRN; Protocol PRN Reason: Shortness Of Breath/Wheezing Stop: 06/18/18 09:56 Aspirin (Aspirin Ec) 81 mg PO DAILY RYAN Stop: 06/19/18 09:01 Last Admin: 12/21/17 10:32 Dose: 81 mg Atorvastatin Calcium (Lipitor) 40 mg PO HS RYAN Stop: 06/18/18 21:01 Last Admin: 12/20/17 20:04 Dose: 40 mg Calcium Carbonate (Tums) 1,000 mg PO TID PRN; Protocol PRN Reason: Indigestion Stop: 06/18/18 13:27 Last Admin: 12/19/17 18:03 Dose: 1,000 mg Dextrose/Water (Dextrose 50% (Syg)) 25 ml IVP AD PRN PRN Reason: Hypoglycemia Stop: 06/18/18 09:57 Furosemide (Lasix) 40 mg PO BIDDIURETIC RYAN Stop: 06/21/18 17:01 Last Admin: 12/20/17 17:34 Dose: 40 mg Glucagon (Glucagen) 1 mg IM ONCE PRN PRN Reason: Hypoglycemia Stop: 06/18/18 09:57 Glucose (Gluctose) 15 gm PO ONCE PRN PRN Reason: Hypoglycemia Stop: 06/18/18 09:57 Glucose (Gluctose) 30 gm PO ONCE PRN PRN Reason: Hypoglycemia Stop: 06/18/18 09:57 Heparin Sodium (Porcine) (Heparin) 3,800 unit 60 unit/kg (3800 unit) IVP ONCE ONE Stop: 12/21/17 10:39 Heparin Sodium (Porcine) (Heparin) 3,800 unit 60 unit/kg (3800 unit) IVP Q6HR PRN PRN Reason: SEE COMMENTS Stop: 06/22/18 10:39 Heparin Sodium (Porcine) (Heparin) 1,900 unit 30 unit/kg (1900 unit) IVP Q6H PRN PRN Reason: SEE COMMENTS Stop: 06/22/18 10:39 Dextrose (Dextrose 5%) 1,000 mls @ 100 mls/hr IVC .Q10H PRN PRN Reason: HYPOGLYCEMIA Stop: 06/18/18 09:57 Sodium Chloride (0.9 % Sodium Chloride) 1,000 mls @ 75 mls/hr IVC .[id number] RYAN Stop: 12/21/17 14:24 Heparin Sodium/Dextrose (Heparin 25,000 Unit/500 Ml D5w) 25,000 unit in 500 mls @ 15 mls/hr IVC .Q24H RYAN; Protocol Stop: 06/22/18 10:46 Insulin Detemir (Levemir) 8 unit SQ BID RYAN Stop: 06/20/18 21:01 Last Admin: 12/21/17 10:35 Dose: 8 unit Insulin Human Lispro (Humalog) 0 units SQ TIDAC RYAN; Protocol Stop: 06/22/18 07:31 Last Admin: 12/21/17 07:47 Dose: Not Given Insulin Human Lispro (Humalog) 0 units SQ HS [facility]; Protocol Stop: 06/21/18 21:31 Last Admin: 12/20/17 21:42 Dose: 3 units Isosorbide Mononitrate (Imdur) 30 mg PO DAILY [facility] Stop: 06/19/18 09:01 Last Admin: 12/21/17 10:32 Dose: 30 mg Lisinopril (Zestril) 5 mg PO DAILY [facility]; Protocol Stop: 06/22/18 09:01 Metoprolol Succinate (Toprol Xl) 12.5 mg PO DAILY [facility] Stop: 06/19/18 10:01 Last Admin: 12/21/17 10:32 Dose: 12.5 mg Naloxone HCl (Narcan) 0.4 mg IVP Q2MIN PRN PRN Reason: SEE COMMENTS Stop: 06/18/18 09:53 Nitroglycerin (Nitroglycerin) 0.4 mg SL Q5MIN PRN PRN Reason: Chest Pain Stop: 06/19/18 10:37 Last Admin: 12/18/17 10:53 Dose: 0.4 mg Omeprazole (Prilosec) 40 mg PO DAILY@0730 [facility]; Protocol Stop: 06/21/18 07:31 Last Admin: 12/21/17 10:32 Dose: 40 mg Oxycodone/Acetaminophen (Percocet 10/325) 1 each PO Q8H PRN PRN Reason: mild to moderate pain Stop: 06/18/18 13:27 Last Admin: 12/17/17 22:11 Dose: 1 each Potassium Chloride (Potassium Chloride) 10 meq PO DAILY [facility] Stop: 06/19/18 09:01 Ticagrelor (Brilinta) 90 mg PO BID [facility] Stop: 06/18/18 21:01 Last Admin: 12/21/17 10:32 Dose: 90 mg Tramadol HCl (Ultram) 50 mg PO Q6HR PRN PRN Reason: Moderate Pain Stop: 06/18/18 09:53 Last Admin: 12/20/17 17:34 Dose: 50 mg Laboratory Tests 12/20/17 12/21/17 12/21/17 02:49 00:25 04:08 Hgb 10.1 L Creatinine 1.20 1.58 H - Imaging and Cardiology Chest Xray: report reviewed Echo: report reviewed Cardiac cath: report reviewed - EKG Interpretation EKG results cardiology: other (Telemetry reviewed with average HR pervious 12 hours noted to be 74, SR. PVCs, PACs noted.) Consult Discharge Plan - Plan Referrals: Justin Burroughs MD [Primary Care Provider] - 12/30/17 10:30 am
[2017-12-21] MEDS ORDERED: Heparin 25,000 UNIT/500 ML D5W 25,000 UNIT/500 ML BAG IVC SCH (10:45)
[2017-12-21] MEDS ORDERED: 0.9 % Sodium Chloride 500 ML IVC SCH (11:00)
[2017-12-21 11:19] LABS: Prothrombin Time 11.2 Seconds (9.4-12.1)
[2017-12-21 11:26] LABS: Heparin anti-factor XA UFH 0.02 IU/mL (0.30-0.70)
[2017-12-21 12:09] VITALS: BP 154/67
--- NOTE | 2017-12-21 12:58 | Event Note ---
Date of Encounter: 12/21/17 Time of Encounter: 10:00 I spoke Ed Phoenix CNP with Cardiology- She she had spoken to the patient and patient's family concerning CABG-patient would prefer to be transferred to another facility-I did discuss with Dr. Amin's nurse Cary via telephone -(Dr. Amin was scrubbed into surgery) concerning patient transfer. He verbalized acknowledgment of transfer-via his nurse. I spoke with the family and the patient they are requesting transferred to [facility]. I did call the transfer center awaiting acceptance and room assignment. Patient will be placed on heparin drip per cardiology's recommendations
--- NOTE | 2017-12-21 15:16 | Cardiothoracic Progress Note ---
Date of Encounter: 12/21/17 Time of Encounter: 15:06 - Assessment and plan (1) STEMI (ST elevation myocardial infarction) Current Visit: No Status: Acute The patient is a 72-year-old type II diabetic, hypertensive lady with known CAD, hypercholesterolemia and chronic renal insufficiency. She underwent cardiac catheterization yesterday was found to have severe 3 vessel CAD, in-stent restenosis, and an LVEF 30-35%. This was confirmed by echocardiogram today which also revealed moderate mitral regurgitation. The STS risk calculator gives the patient now operative mortality risk of 10.3%. Given her advanced age, severe three-vessel disease, and severe cardiomyopathy, I believe that the patient should be transferred to a tertiary Medical Center for evaluation and possible high risk CABG. The assessment and plan as outlined above was discussed with the patient and/or family members who expressed understanding and agreement. All questions were answered. Qualifiers: Involved coronary artery: right coronary artery Qualified Code(s): I21.11 - ST elevation (STEMI) myocardial infarction involving right coronary artery - Subjective Interval history: The patient is resting comfortably in her hospital bed. She has no complaints of substernal chest pain. Vital Signs, Last 4 Hours Temp Pulse Resp BP Pulse Ox 12/21/17 12:04 98.5 F 70 20 154/67 96 Oxgyen Flow Rate Oxygen Flow Rate (LPM) 3 Clinical Data, last 8 Hours Output, Urine Amount 0 Output, Urine Amount 0 Weight 12/19/17 12/20/17 12/21/17 23:59 23:59 23:59 Weight 61 kg 61.8 kg 62.5 kg - Physical Examination General: Conversant, No Apparent Distress Neck: No JVD, Normal carotid pulses Cardiac: Reg Rate and Rhythm, Normal S1 and S2, No Murmur Lungs: Normal Breath Sounds, No Wheeze, Rales, Rhonchi Neuro: Alert and responsive, No focal deficits noted Vascular: Normal capillary refill Extremities: No Clubbing, No Cyanosis, No Edema - Labs 12/21/17 04:08 12/21/17 00:25 Lab Results, Last 24 hours 12/21/17 12/21/17 12/21/17 00:25 04:08 10:53 WBC 7.6 Hgb 10.1 L Hct 30.3 L Plt Count 240 INR 1.0 Sodium 137 Potassium 3.9 Chloride 101 Carbon Dioxide 28 BUN 26 H Creatinine 1.58 H Glucose 78 Calcium 9.0 Consult Discharge Plan - Plan Referrals: Justin Burroughs MD [Primary Care Provider] - 12/30/17 10:30 am
--- NOTE | 2017-12-21 15:30 | Discharge Summary ---
Orders not resulted at time of discharge: Pending orders 12/19/17 16:18 Occult Blood,Stool [BF] Routine 12/21/17 17:36 Heparin anti-factor XA UFH [COAG] Timed Date of Encounter: 12/21/17 Time of Encounter: 15:30 - Discharge Diagnosis (1) Hypertension Priority: Secondary Status: Chronic Qualifiers: Hypertension type: essential hypertension Qualified Code(s): I10 - Essential (primary) hypertension (2) Diabetes mellitus, type II Priority: Secondary Status: Chronic Qualifiers: Diabetes mellitus group home insulin use: without group home use Diabetes mellitus complication status: with hypoglycemia Diabetes mellitus complication detail: without coma Qualified Code(s): E11.649 - Type 2 diabetes mellitus with hypoglycemia without coma (3) Anemia Priority: Secondary Status: Chronic Qualifiers: Anemia type: iron deficiency Iron deficiency anemia type: unspecified iron deficiency Qualified Code(s): D50.9 - Iron deficiency anemia, unspecified (4) CAD (coronary artery disease) Priority: Secondary Status: Chronic Qualifiers: Coronary Disease-Associated Artery/Lesion type: [place] artery [place] vs. transplanted heart: [place] heart Associated angina: without angina Qualified Code(s): I25.10 - Atherosclerotic heart disease of [place] coronary artery without angina pectoris (5) Elevated troponin Priority: Primary Status: Acute (6) Congestive heart failure Priority: Primary Status: Acute Qualifiers: Heart failure type: systolic Heart failure chronicity: acute on chronic Qualified Code(s): I50.23 - Acute on chronic systolic (congestive) heart failure (7) Hypothyroidism Priority: Secondary Status: Suspected Qualifiers: Hypothyroidism type: other Qualified Code(s): E03.8 - Other specified hypothyroidism (8) CKD (chronic kidney disease), stage III Priority: Secondary Status: Acute Hospital course: Ms. Valverde is a 72 year old female past medical history of coronary artery disease diabetes hypertension CTD stage III peripheral artery disease presented to the emergency department with complaints of shortness of breath that had been going on for proximally 4 days. Shortest of breath worsened with exertion and with lying down she also had pedal edema productive cough with whitish sputum. No fevers or chills -has mild chest pain. [facility] 12/2016 for STEMI with PCI to RCA for STEMI then underwent staged PCI to LAD and OM EKG with increased prominence of ST depression Troponins were elevated on presentation-0.05, 0.09, 0.4, 0.55-chest x-ray did reveal pulmonary edema she was given IV Lasix and diuresed. She was placed on heparin drip last TTE 09/2017 with LVEF of 45% global. Previous TTE 07/2017 with LVEF of 55-60%. TTE completed 12/21/2017 with LVEF 35% severe global left ventricular systolic dysfunction moderate mitral regurgitation She was seen by cardiology she underwent LH C 12/20 2017 which revealed severe three-vessel coronary artery disease and severe LV dysfunction EF 30%.After LHC patient's creatinine did elevate to 1.58 GFR down 32. It appears baseline is around creatinine 1.0- 1.4 GFR 40-50. Closely monitoring renal function Cardiothoracic surgery was consulted-given her advanced age severe three-vessel disease and severe cardiomyopathy, cardiothoracic surgery recommending transfer to tertiary [facility] for evaluation and possible high risk CABG. This was discussed with patient and family per cardiology. Patient expressed that she would like to be transferred to [facility]. I did speak with [facility] transfer center who accepted the patient to open heart services. Accepting physician is Dr. Eduin Funk. Patient is currently on a heparin dri p as well as oxygen at 3 L nasal cannula. She is hemodynamically stable with no chest pain at this time she is ready for transfer to [facility] - Time Spent with Patient Total time spent providing and/or coordinating discharge services: - Discharge Medications Home Medications: Aspirin [Lo-Dose Aspirin EC] 81 mg PO DAILY 08/03/17 [History] Atorvastatin [Lipitor] 40 mg PO HS 08/03/17 [History] Insulin ASPART [Novolog Flexpen] 5 unit SQ TIDWM PRN 08/03/17 [History] Insulin Glargine,Hum.rec.anlog [Lantus Solostar] 5 - 10 unit SQ QPM 08/03/17 [History] Oxycodone HCl/Acetaminophen [Percocet 10-325 mg Tablet] 1 tab PO Q8H PRN 08/03/17 [History] Ticagrelor [Brilinta] 90 mg PO BID 08/03/17 [History] amLODIPine [Norvasc] 5 mg PO DAILY 08/03/17 [History] Calcium Carbonate [Tums] 1,000 mg PO TID PRN #60 tab.chew 08/04/17 [Rx] Albuterol Sulfate [Ventolin Hfa] 2 puff IH Q4HR PRN #1 hfa.aer.ad 09/30/17 [Rx] Furosemide [Lasix] 40 mg PO DAILY 12/17/17 [History] Potassium Chloride [Klor-Con 10] 10 meq PO DAILY 12/17/17 [History] Allergies/Adverse Reactions: Allergy/AdvReac Type Severity Reaction Status Date / Time codeine Allergy Rash Verified 12/17/17 10:11 gabapentin Allergy Rash Verified 12/17/17 10:11 Date of admission: 12/18/17 19:45 Primary care physician: Justin Burroughs MD Consults: 12/17/17 13:29 Consult to Cardiac Rehabilitation-Phase1 [CONS] Routine Comment: Reason for Consult: heart failure Call Completed: Yes Consult to Nurse Navigator [CONS] Routine Comment: 12/17/17 20:56 Consult to Cardiology [CONS] Routine Comment: Consulting Provider: Cardiology [place] Reason for Consult: Elevated troponin/ CHF Call Completed: No 12/20/17 16:48 Consult to Cardiothoracic Surgery [CONS] Routine Consulting Provider: Cardiothoracic Surgery [place] Reason for Consult: eval for CABG Call Completed: Yes Discharging clinician: Cary Ramirez Anticipated date of discharge: 12/21/17 - Constitutional Vitals: Temp Pulse Resp BP Pulse Ox 98.5 F 70 20 154/67 96 12/21/17 12:04 12/21/17 12:04 12/21/17 12:04 12/21/17 12:04 12/21/17 12:04 General appearance: Present: cooperative, mild distress, A&O X 3, pleasant, answers questions appropriately Exam: General: Patient is alert, mild distress, oriented x 3 Respiratory: Normal breath sounds. No wheezing or crackles. Decreased breath sounds at bases Cardiovascular: Regular rate and rhythm. s1 and s2 normal No clicks, rubs, gallops, or murmurs. No pedal edema Abdomen: Abdomen is soft, nontender. Bowel sounds are present Musculoskeletal: Spontaneously moving all extremities Skin: warm, dry, intact. Neuro: Alert oriented x 3 normal cranial nerves, no focal deficits - Patient Status Disposition: Transfer Critical Access Hosp Condition: Fair Functional capacity at discharge: independent ambulation Overall status at discharge: patient is not back to baseline - Discharge Instructions Follow Up With: Justin Burroughs MD [Primary Care Provider] - 12/30/17 10:30 am
--- NOTE | 2017-12-21 21:55 | Electrocardiograph Report ---
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
--- NOTE | 2017-12-22 13:16 | Electrocardiograph Report ---
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
== END 2017-12-21 15:52 | disposition critical access hospital (66) | DRG 286 ==
LOC: EMEROOARM 07:56 → 3BNU 07:56 → SUATTDRO 09:44 → 3BNU 10:41
PROVIDERS: ADMIT Internal Medicine; ATTEND Internal Medicine

== ENCOUNTER 2018-05-19 12:04 | Inpatient (IN) ==
[2018-05-19] MEDS ORDERED: Aspirin 81 MG TAB.CHEW PO ONE (12:17)
[2018-05-19] MEDS ORDERED: GI Cocktail 40 ML EACH PO ONE (12:17)
[2018-05-19] MEDS ORDERED: Ondansetron 4 MG/2 ML VIAL IVP ONE (12:20)
--- NOTE | 2018-05-19 12:30 | Emergency Department Note ---
Disposition Forms: ED Satisfaction Letter, Work/School Release General Adult HPI - General Chief complaint: ED General Medical Stated complaint: chest pain Time Seen by Provider: 05/19/18 12:15 - History of Present Illness Pain Scale: 4 - Related Data Home Medications Medication Instructions Recorded Confirmed Insulin Glargine,Hum.rec.anlog 2 - 3 unit SQ DAILY PRN 08/03/17 05/05/18 [Lantus Solostar] Oxycodone HCl/Acetaminophen 1 tab PO TID PRN 08/03/17 05/05/18 [Percocet 10-325 mg Tablet] Ticagrelor [Brilinta] 90 mg PO BID 08/03/17 05/05/18 Potassium Chloride [Klor-Con 10] 10 meq PO DAILY 12/17/17 05/05/18 Allopurinol [Zyloprim 100 MG] 100 mg PO DAILY PRN 02/03/18 05/05/18 Atorvastatin Calcium [Lipitor] 80 mg PO HS 02/03/18 05/05/18 Carvedilol 3.125 mg PO BID 02/03/18 05/05/18 Isosorbide MONOnitrate [Isosorbide 30 mg PO DAILY PRN 02/03/18 05/05/18 Mononitrate ER] Pantoprazole Sodium 40 mg PO BID 02/03/18 05/05/18 Aspirin [Lo-Dose Aspirin EC] 81 mg PO DAILY 05/05/18 05/05/18 Cholecalciferol (D-3) [Vitamin D] 1,000 unit PO BID 05/05/18 05/05/18 Cyanocobalamin (B-12) [Vitamin B12] 1,000 mcg IM QWEEK 05/05/18 05/05/18 Folic Acid 0.4 mg PO DAILY 05/05/18 05/05/18 Sacubitril/Valsartan 24/26 mg 1 tab PO BID 05/05/18 05/05/18 [Entresto 24 mg-26 mg Tablet] Previous Rx's Medication Instructions Recorded Furosemide [Lasix] 40 mg PO BIDDIURETIC 30 Days #60 05/06/18 tablet Allergies Allergy/AdvReac Type Severity Reaction Status Date / Time codeine Allergy Rash Verified 05/05/18 08:39 gabapentin Allergy Rash Verified 05/05/18 08:39 levothyroxine sodium AdvReac "THROAT Verified 05/05/18 08:39 [From Synthroid] SORE" Past Medical History - Past Medical History Medical history: Reports: cardiomyopathy, COPD, coronary artery disease, diabetes, hyperlipidemia, hypertension, myocardial infarction, peripheral artery disease, renal disease Surgical history: Reports: angioplasty/stent Psychiatric history: Reports: anxiety 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 - Social History Smoking Status: Never smoker Smokeless Tobacco Status: No Alcohol use: Reports: none Drug use: Reports: none Physical Exam - General General appearance: alert Course Vital Signs Temperature 96.7 F L 05/19/18 12:15 Pulse Rate 103 05/19/18 12:15 Respiratory Rate 19 05/19/18 12:15 Blood Pressure 119/57 05/19/18 12:15 O2 Sat by Pulse Oximetry 100 05/19/18 12:15 Temperature 96.7 F L 05/19/18 12:15 Pulse Rate 103 05/19/18 12:15 Respiratory Rate 05/19/18 12:15 Blood Pressure 119/57 05/19/18 12:15 O2 Sat by Pulse Oximetry 100 05/19/18 12:20 Oxygen Delivery Oxygen Delivery Nasal Cannula Attestation Statement - Attestation Attestation: I examined this patient and my medical decision-making was reviewed with the Resident Physician. I agree with the documented findings, disposition and treatment plan as described except to the extent set forth below.
--- NOTE | 2018-05-19 12:49 | Emergency Department Note ---
Disposition Clinical Impression: Elevated troponin Chest pain Qualifiers: Chest pain type: unspecified Qualified Code(s): R07.9 - Chest pain, unspecified Vomiting Qualifiers: Vomiting type: unspecified Vomiting Intractability: non-intractable Nausea presence: with nausea Qualified Code(s): R11.2 - Nausea with vomiting, unspecified Disposition: Admitted As Inpatient Condition: Fair Forms: ED Satisfaction Letter, Work/School Release Time of Disposition: 15:51 General Adult HPI - General Chief complaint: ED General Medical Stated complaint: chest pain Time Seen by Provider: 05/19/18 12:15 - History of Present Illness Pain Scale: 4 - Related Data Home Medications Medication Instructions Recorded Confirmed Insulin Glargine,Hum.rec.anlog 2 - 3 unit SQ DAILY PRN 08/03/17 05/05/18 [Lantus Solostar] Oxycodone HCl/Acetaminophen 1 tab PO TID PRN 08/03/17 05/05/18 [Percocet 10-325 mg Tablet] Ticagrelor [Brilinta] 90 mg PO BID 08/03/17 05/05/18 Potassium Chloride [Klor-Con 10] 10 meq PO DAILY 12/17/17 05/05/18 Allopurinol [Zyloprim 100 MG] 100 mg PO DAILY PRN 02/03/18 05/05/18 Atorvastatin Calcium [Lipitor] 80 mg PO HS 02/03/18 05/05/18 Carvedilol 3.125 mg PO BID 02/03/18 05/05/18 Isosorbide MONOnitrate [Isosorbide 30 mg PO DAILY PRN 02/03/18 05/05/18 Mononitrate ER] Pantoprazole Sodium 40 mg PO BID 02/03/18 05/05/18 Aspirin [Lo-Dose Aspirin EC] 81 mg PO DAILY 05/05/18 05/05/18 Cholecalciferol (D-3) [Vitamin D] 1,000 unit PO BID 05/05/18 05/05/18 Cyanocobalamin (B-12) [Vitamin B12] 1,000 mcg IM QWEEK 05/05/18 05/05/18 Folic Acid 0.4 mg PO DAILY 05/05/18 05/05/18 Sacubitril/Valsartan 24/26 mg 1 tab PO BID 05/05/18 05/05/18 [Entresto 24 mg-26 mg Tablet] Previous Rx's Medication Instructions Recorded Furosemide [Lasix] 40 mg PO BIDDIURETIC 30 Days #60 05/06/18 tablet Allergies Allergy/AdvReac Type Severity Reaction Status Date / Time codeine Allergy Rash Verified 05/05/18 08:39 gabapentin Allergy Rash Verified 05/05/18 08:39 levothyroxine sodium AdvReac "THROAT Verified 05/05/18 08:39 [From Synthroid] SORE" Past Medical History - Past Medical History Medical history: Reports: cardiomyopathy, COPD, coronary artery disease, diabetes, hyperlipidemia, hypertension, myocardial infarction, peripheral artery disease, renal disease Surgical history: Reports: angioplasty/stent Psychiatric history: Reports: anxiety 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 - Social History Smoking Status: Never smoker Smokeless Tobacco Status: No Alcohol use: Reports: none Drug use: Reports: none Physical Exam - General General appearance: alert Course Vital Signs Temperature 96.7 F L 05/19/18 12:15 Pulse Rate 103 05/19/18 12:15 Respiratory Rate 19 05/19/18 12:15 Blood Pressure 119/57 05/19/18 12:15 O2 Sat by Pulse Oximetry 100 05/19/18 12:15 Temperature 96.7 F L 05/19/18 12:15 Pulse Rate 85 05/19/18 15:33 Respiratory Rate 18 05/19/18 15:33 Blood Pressure 105/55 05/19/18 15:33 O2 Sat by Pulse Oximetry 100 05/19/18 15:33 Oxygen Delivery Oxygen Delivery Nasal Cannula Medical Decision Making - Lab Data Result diagrams: 05/19/18 12:57 05/19/18 12:57 Lab Results 05/19/18 05/19/18 05/19/18 Range/Units 12:57 12:57 12:57 WBC 7.8 (4.3-11.1) K/mcL RBC 3.77 L (3.82-4.97) M/mcL Hgb 11.1 L (11.5-15.4) g/dL Hct 35.5 (35.3-44.9) % MCV 94.2 (83.0-100.0) fL MCH 29.4 (28.0-33.3) pg MCHC 31.3 L (31.6-35.5) g/dL RDW 15.4 H (11.5-14.5) % Plt Count 570 H (140-400) K/mcL MPV 10.1 (9.4-12.4) fL Immature Gran % 0.5 (0-4) % Seg Neutrophils % 78.2 % Lymphocytes % 13.3 % Monocytes % 5.8 % Eosinophils % 1.3 % Basophils % 0.9 % Neutrophils # 6.1 (1.6-8.9) K/mcL Lymphocytes # 1.0 (0.6-4.6) K/mcL Monocytes # 0.5 (0.0-1.3) K/mcL Eosinophils # 0.1 (0.0-0.6) K/mcL Basophils # 0.1 (0.0-0.2) K/mcL Sodium 137 (136-145) mEq/L Potassium 3.9 (3.5-5.1) mEq/L Chloride 97 L (98-107) mEq/L Carbon Dioxide 27 (23-29) mEq/L BUN 20 (8-23) mg/dL Creatinine 1.51 H (0.60-1.20) mg/dL Est GFR ( Amer) 41 L (> 60) Est GFR (Non-Af Amer) 34 L (> 60) BUN/Creatinine Ratio 13 (6-26) Glucose 186 H (70-105) mg/dL Calculated Osmolality 291 (280-300) Calcium 9.5 (8.6-10.3) mg/dL Total Bilirubin 0.6 (0.3-1.0) mg/dL Direct Bilirubin 0.1 (0.0-0.2) mg/dL Indirect Bilirubin 0.5 (0.0-1.2) mg/dL AST 16 (13-39) Units/L ALT 22 (7-52) Units/L Alkaline Phosphatase 121 H (34-104) Units/L Troponin I 0.06 H* (< 0.04) ng/mL B-Natriuretic Peptide 1296 H (Less than 100) pg/mL Serum Total Protein 7.3 (6.4-8.9) g/dL Albumin 3.6 (3.5-5.7) g/dL Globulin 3.7 H (2.4-3.5) g/dL Albumin/Globulin Ratio 1.0 L (1.1-2.2) Lipase 16 (11-82) Units/L Attestation Statement - Attestation Attestation: I examined this patient and my medical decision-making was reviewed with the Resident Physician. I agree with the documented findings, disposition and treatment plan as described except to the extent set forth below. Patient to ED complaining of abdominal pain nausea vomiting and chest pain. Onset today. Patient has an extensive cardiac history including 3 MIs and 7 stents. She had a lengthy stay another issue couple of months ago for complications from her stents. Patient was also easily admitted for pneumonia. On exam she is awake and alert. Lungs clear. Not actively vomiting. Plan. Cardiac workup with abdominal labs. Patient reevaluated. She is feeling much better. She wants to go home, however her troponin is elevated. She is provided an aspirin and will admit for further cardiac workup secondary to her extensive history. Patient still has a right- sided pleural effusion. This is not felt to be pneumonia. She has no fever or white count. No change in cough. Chest X-Ray 05/19/18 12:17 IMPRESSION: Moderate right pleural effusion. Underlying opacity may represent atelectasis with pneumonia not excluded. D/ / 05/19/2018 13:06:11 Josiah Berrios MD / mabel Interpreting Provider: Josiah Berrios MD
--- NOTE | 2018-05-19 12:58 | Emergency Department Note ---
Disposition Clinical Impression: Elevated troponin Chest pain Qualifiers: Chest pain type: unspecified Qualified Code(s): R07.9 - Chest pain, unspecified Vomiting Qualifiers: Vomiting type: unspecified Vomiting Intractability: non-intractable Nausea presence: with nausea Qualified Code(s): R11.2 - Nausea with vomiting, unspecified Disposition: Admitted As Inpatient Condition: Fair Referrals: Justin Burroughs MD [Partnered Physician] - Forms: ED Satisfaction Letter, Work/School Release Time of Disposition: 16:30 Chest Pain HPI - General Stated Complaint: chest pain Time Seen by Provider: 05/19/18 12:15 Source: patient Mode of arrival: ambulatory Limitations: no limitations Vital Signs Reviewed: Yes Nursing Notes Reviewed: Yes - History of Present Illness HPI Narrative: 72 yo female with PMHx of NC, COPD, CHF, DM, HTN presents to the ED with the complaint of chest pain that started around 1030 this morning. She describes the chest pain as a burning, like heart burn. She also has felt nauseous and has vomited several times. She also feels more short of breath than at baseline. She was at rest when the chest pain started. She denies fevers, chills, cough, congestion, abdominal pain. She states her previous heart attacks felt similar to this pain. She states she has received 7 stents in the past and takes her medications on a daily basis. Severity scale (1-10): 4 - Related Data Home Medications Medication Instructions Recorded Confirmed Insulin Glargine,Hum.rec.anlog 2 - 3 unit SQ DAILY PRN 08/03/17 05/05/18 [Lantus Solostar] Oxycodone HCl/Acetaminophen 1 tab PO TID PRN 08/03/17 05/05/18 [Percocet 10-325 mg Tablet] Ticagrelor [Brilinta] 90 mg PO BID 08/03/17 05/05/18 Potassium Chloride [Klor-Con 10] 10 meq PO DAILY 12/17/17 05/05/18 Allopurinol [Zyloprim 100 MG] 100 mg PO DAILY PRN 02/03/18 05/05/18 Atorvastatin Calcium [Lipitor] 80 mg PO HS 02/03/18 05/05/18 Carvedilol 3.125 mg PO BID 02/03/18 05/05/18 Isosorbide MONOnitrate [Isosorbide 30 mg PO DAILY PRN 02/03/18 05/05/18 Mononitrate ER] Pantoprazole Sodium 40 mg PO BID 02/03/18 05/05/18 Aspirin [Lo-Dose Aspirin EC] 81 mg PO DAILY 05/05/18 05/05/18 Cholecalciferol (D-3) [Vitamin D] 1,000 unit PO BID 05/05/18 05/05/18 Cyanocobalamin (B-12) [Vitamin B12] 1,000 mcg IM QWEEK 05/05/18 05/05/18 Folic Acid 0.4 mg PO DAILY 05/05/18 05/05/18 Sacubitril/Valsartan 24/26 mg 1 tab PO BID 05/05/18 05/05/18 [Entresto 24 mg-26 mg Tablet] Previous Rx's Medication Instructions Recorded Furosemide [Lasix] 40 mg PO BIDDIURETIC 30 Days #60 05/06/18 tablet Allergies Allergy/AdvReac Type Severity Reaction Status Date / Time codeine Allergy Rash Verified 05/05/18 08:39 gabapentin Allergy Rash Verified 05/05/18 08:39 levothyroxine sodium AdvReac "THROAT Verified 05/05/18 08:39 [From Synthroid] SORE" All systems ED: reviewed and negative except as stated. Review of Systems: As Per HPI Constitutional: Denies: fever, chills, weakness Cardiovascular: Reports: chest pain, dyspnea on exertion, orthopnea. Denies: edema, syncope Respiratory: Reports: dyspnea. 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 Absent: tenderness, lymphadenopathy - Chest Chest inspection: Present: normal inspection. Absent: tenderness - Respiratory Respiratory exam: Present: wheezes (in all lung mccloud) - Cardiovascular Cardiovascular exam: Present: normal rhythm, tachycardia - Abdominal Exam Abdominal exam: Present: soft, Non-Tender. Absent: distention, guarding, rebound, rigidity Course Vital Signs Temperature 96.7 F L 05/19/18 12:15 Pulse Rate 103 05/19/18 12:15 Respiratory Rate 19 05/19/18 12:15 Blood Pressure 119/57 05/19/18 12:15 O2 Sat by Pulse Oximetry 100 05/19/18 12:15 Temperature 96.7 F L 05/19/18 12:15 Pulse Rate 85 05/19/18 15:33 Respiratory Rate 18 05/19/18 15:33 Blood Pressure 105/55 05/19/18 15:33 O2 Sat by Pulse Oximetry 100 05/19/18 15:33 Oxygen Delivery Oxygen Delivery Nasal Cannula Chest Pain - MDM Narrative Medical decision making narrative: Patient presents with symptoms concerning for recurrence of ACS. We will do a cardiac workup on her and treat her with aspirin, nitroglycerin, GI cocktail. 1500 patient's lab work has returned within elevated troponin of 0.06. All other workup was unremarkable. Patient is feeling better after her medications but due to her elevated troponin and cardiac history there is concern for further cardiac chest pain. Patient is agreeable for admission for further cardiac workup and possible stress test. Hospitalist has been paged at this time. 1615 - hospitalist has accepted this patient for further workup. - Medical Records Medical records reviewed: Yes I reviewed the patient's medical records. - Lab Data Lab results reviewed: Yes I reviewed the patient's lab results. Result diagrams: 05/19/18 12:57 05/19/18 12:57 Lab Results 05/19/18 05/19/18 05/19/18 Range/Units 12:57 12:57 12:57 WBC 7.8 (4.3-11.1) K/mcL RBC 3.77 L (3.82-4.97) M/mcL Hgb 11.1 L (11.5-15.4) g/dL Hct 35.5 (35.3-44.9) % MCV 94.2 (83.0-100.0) fL MCH 29.4 (28.0-33.3) pg MCHC 31.3 L (31.6-35.5) g/dL RDW 15.4 H (11.5-14.5) % Plt Count 570 H (140-400) K/mcL MPV 10.1 (9.4-12.4) fL Immature Gran % 0.5 (0-4) % Seg Neutrophils % 78.2 % Lymphocytes % 13.3 % Monocytes % 5.8 % Eosinophils % 1.3 % Basophils % 0.9 % Neutrophils # 6.1 (1.6-8.9) K/mcL Lymphocytes # 1.0 (0.6-4.6) K/mcL Monocytes # 0.5 (0.0-1.3) K/mcL Eosinophils # 0.1 (0.0-0.6) K/mcL Basophils # 0.1 (0.0-0.2) K/mcL Sodium 137 (136-145) mEq/L Potassium 3.9 (3.5-5.1) mEq/L Chloride 97 L (98-107) mEq/L Carbon Dioxide 27 (23-29) mEq/L BUN 20 (8-23) mg/dL Creatinine 1.51 H (0.60-1.20) mg/dL Est GFR ( Amer) 41 L (> 60) Est GFR (Non-Af Amer) 34 L (> 60) BUN/Creatinine Ratio 13 (6-26) Glucose 186 H (70-105) mg/dL Calculated Osmolality 291 (280-300) Calcium 9.5 (8.6-10.3) mg/dL Total Bilirubin 0.6 (0.3-1.0) mg/dL Direct Bilirubin 0.1 (0.0-0.2) mg/dL Indirect Bilirubin 0.5 (0.0-1.2) mg/dL AST 16 (13-39) Units/L ALT 22 (7-52) Units/L Alkaline Phosphatase 121 H (34-104) Units/L Troponin I 0.06 H* (< 0.04) ng/mL B-Natriuretic Peptide 1296 H (Less than 100) pg/mL Serum Total Protein 7.3 (6.4-8.9) g/dL Albumin 3.6 (3.5-5.7) g/dL Globulin 3.7 H (2.4-3.5) g/dL Albumin/Globulin Ratio 1.0 L (1.1-2.2) Lipase 16 (11-82) Units/L - Radiology Data Radiology results reviewed: Yes I reviewed the patient's radiology results. - EKG Data EKG attestation: Yes I reviewed and interpreted this EKG. EKG results narrative: EKG obtained at 12:40 on 05/19/2018 Heart rate 106 bpm, ID interval 162, QRS duration 1:30, QT 384, QTC 510 Sinus Tachycardia with nonspecific intraventricular conduction delay. No signs of ST segment elevations or depressions. Increase in T-wave size in leads V2 and V3, not concerning for hyperacute T waves. Otherwise unchanged from previous EKG dated 05/03/2018. Heart Score - Score History: Moderately Suspicious EKG: Non Specific repolarisation Disturbance Age: Greater than 65 Risk Factors: Equal/Greater than 3 risk factor or history of atherosclerotic disease Troponin: 1-3x normal limit HEART Score Total: 7
[2018-05-19 13:23] LABS: Basophils # 0.1 K/mcL (0.0-0.2); Basophils % 0.9 %; Eosinophils # 0.1 K/mcL (0.0-0.6); Eosinophils % 1.3 %; Hematocrit 35.5 % (35.3-44.9); Hemoglobin 11.1 g/dL (11.5-15.4); Immature Granulocytes % 0.5 % (0-4); Lymphocytes % 13.3 %; Mean Corpuscular HGB Conc 31.3 g/dL (31.6-35.5); Mean Corpuscular Hemoglobin 29.4 pg (28.0-33.3); Mean Corpuscular Volume 94.2 fL (83.0-100.0); Mean Platelet Volume 10.1 fL (9.4-12.4); Monocytes # 0.5 K/mcL (0.0-1.3); Monocytes % 5.8 %; Neutrophils # 6.1 K/mcL (1.6-8.9); Platelet Count 570 K/mcL (140-400); Red Blood Count 3.77 M/mcL (3.82-4.97); Red Cell Distribution Width 15.4 % (11.5-14.5); Segmented Neutrophils % 78.2 %
[2018-05-19 14:04] LABS: Albumin 3.6 g/dL (3.5-5.7); Bilirubin,Direct 0.1 mg/dL (0.0-0.2); Bilirubin,Indirect 0.5 mg/dL (0.0-1.2); Bilirubin,Total 0.6 mg/dL (0.3-1.0); Calcium 9.5 mg/dL (8.6-10.3); Globulin 3.7 g/dL (2.4-3.5); Potassium 3.9 mEq/L (3.5-5.1); Total Protein 7.3 g/dL (6.4-8.9); Troponin I 0.06 ng/mL (< 0.04)
--- NOTE | 2018-05-19 17:00 | Electrocardiograph Report ---
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
[2018-05-19] MEDS ORDERED: Naloxone 0.4 MG/ML INJ IVP PRN (17:12)
--- NOTE | 2018-05-19 17:12 | Internal Med History&Physical ---
Date of Encounter: 05/19/18 Time of Encounter: 17:12 Internal Medicine - H&P: HPI Chief complaint: Chest pain Admitted From: Emergency Dept History of present illness: Ms. Valverde is a 72 year old female patient with a history of coronary artery disease, hypertension, ischemic cardiomyopathy, GERD who presented to the ER with complaints of acute chest pain that began this morning. It was central in location and felt like a heartburn. She describes some pain in her left arm associated with it. She also felt nauseated and had an episode of emesis. She was brought to the ER in her chest pain subsided soon after. She denies any fevers or chills. No no changes to her baseline cough. She had been hospitalized here earlier this month and has been doing well since her discharge. Denies any significant lower extremity swelling. No orthopnea or PND. Past Med Surg Social Fam HX - Past Medical History Attestation: Yes The following information was validated with the patient. Source: patient Medical history: cardiomyopathy, COPD, coronary artery disease, diabetes, hyperlipidemia, hypertension, myocardial infarction, peripheral artery disease, renal disease Additional medical history: gout Psychiatric history: anxiety - Past Surgical History Surgical History: angioplasty/stent Additional surgical history: heart stents x7, tubal - Social History Smoking Status: Never smoker Smokeless Tobacco Status: No Alcohol use: none Drug use: none - Family History Maternal Living Status: Paternal Living Status: Mother Hx Family Cardiac Disorders: Yes ([place]) Hx Family Endocrine Disorder: Yes (DM) Father Hx Family Cardiac Disorders: Yes ([place]) Internal Medicine - H&P: Meds Insulin Glargine,Hum.rec.anlog [Lantus Solostar] 5 - 10 unit SQ HS PRN 08/03/17 [History] Oxycodone HCl/Acetaminophen [Percocet 10-325 mg Tablet] 1 tab PO TID PRN 08/03/17 [History] Ticagrelor [Brilinta] 90 mg PO BID 08/03/17 [History] Potassium Chloride [Klor-Con 10] 10 meq PO DAILY 12/17/17 [History] Allopurinol [Zyloprim 100 MG] 100 mg PO DAILY PRN 02/03/18 [History] Atorvastatin Calcium [Lipitor] 80 mg PO HS 02/03/18 [History] Carvedilol 3.125 mg PO BID 02/03/18 [History] Isosorbide MONOnitrate [Isosorbide Mononitrate ER] 30 mg PO DAILY PRN 02/03/18 [History] Pantoprazole Sodium 40 mg PO BID 02/03/18 [History] Aspirin [Lo-Dose Aspirin EC] 81 mg PO DAILY 05/05/18 [History] Cyanocobalamin (B-12) [Vitamin B12] 1,000 mcg IM WE 05/05/18 [History] Folic Acid 0.4 mg PO DAILY 05/05/18 [History] Sacubitril/Valsartan 24/26 mg [Entresto 24 mg-26 mg Tablet] 1 tab PO BID 05/05/18 [History] Furosemide [Lasix] 40 mg PO BID 05/19/18 [History] Insulin ASPART [Novolog Flexpen] 5 unit SQ TID 05/19/18 [History] Allergy/AdvReac Type Severity Reaction Status Date / Time codeine Allergy Rash Verified 05/05/18 08:39 gabapentin Allergy Rash Verified 05/05/18 08:39 levothyroxine sodium AdvReac "THROAT Verified 05/05/18 08:39 [From Synthroid] SORE" All Systems PM: A 10-system review of systems was performed and is negative for pertinent findings except as documented above in the HPI. - Constitutional Constitutional: malaise - EENT Eyes: no change in vision, no discharge, no pain, no photophobia Ears: no ear discharge, no ear pain, no tinnitus Nose, mouth and throat: no dysphagia, no nasal discharge, no neck pain, no sore throat - Cardiovascular Cardiovascular ROS IM: chest pain, no diaphoresis, no dyspnea, no lightheadedness, no palpitations, no syncope - Respiratory Respiratory: no cough, no dyspnea, no wheezing, no excessive phlegm production - Gastrointestinal Gastrointestinal: no abdominal pain, no diarrhea, no hematemesis, no hematochezia, no melena, no nausea, no vomiting - Genitourinary Genitourinary: no change in urinary stream, no dysuria, no flank pain, no hematuria - Musculoskeletal Musculoskeletal ROS IM: no numbness, no tingling - Integumentary Integumentary IM: no rash, no unusual bruising - Neurological Neurological ROS: no confusion, no convulsions, no focal weakness, no numbness, no tingling, no tremor(s) - Hematologic/Lymphatic Hematologic/Lymphatic: no easy bruising - Constitutional Vitals: Temp Pulse Resp BP Pulse Ox 96.7 F L 85 18 105/55 100 05/19/18 12:15 05/19/18 15:33 05/19/18 15:33 05/19/18 15:33 05/19/18 15:33 General appearance: Present: cooperative, A&O X 3, answers questions appropriately Exam: General: Patient is alert, no acute distress, oriented x 3 Head: atraumatic, normocephalic, ENT: Mucous membranes moist Eye: normal appearance, PERRL, no scleral icterus, no conjunctival injection Neck: normal inspection, trachea midline, full ROM, no carotid bruits Chest: normal inspection, symmetric chest rise Respiratory: Mild wheezing bilaterally, prolonged expiratory phase Cardiovascular: Regular rate and rhythm. s1 and s2 normal No clicks, rubs, gallops, or murmurs. No pedal edema Abdomen: Abdomen is soft, nontender. Bowel sounds are present Musculoskeletal: Spontaneously moving all extremities Skin: warm, dry, intact. Neuro: Alert oriented x 3 normal cranial nerves, no focal deficits Psych: Patient's affect is normal Internal Med - H&P Results - Labs CBC & Chem 7: 05/19/18 12:57 05/19/18 12:57 Labs: Short CBC 05/19/18 Range/Units 12:57 WBC 7.8 (4.3-11.1) K/mcL Hgb 11.1 L (11.5-15.4) g/dL Hct 35.5 (35.3-44.9) % Plt Count 570 H (140-400) K/mcL Neutrophils # 6.1 (1.6-8.9) K/mcL BMP 05/19/18 12:57 Sodium 137 Potassium 3.9 Chloride 97 L Carbon Dioxide 27 BUN 20 Creatinine 1.51 H Glucose 186 H Calcium 9.5 Cardiac Enzymes 05/19/18 Range/Units 12:57 Troponin I 0.06 H* (< 0.04) ng/mL Liver Function 05/19/18 Range/Units 12:57 Total Bilirubin 0.6 (0.3-1.0) mg/dL Direct Bilirubin 0.1 (0.0-0.2) mg/dL AST 16 (13-39) Units/L ALT 22 (7-52) Units/L Alkaline Phosphatase 121 H (34-104) Units/L Albumin 3.6 (3.5-5.7) g/dL - EKG Data -: EKG Interpreted by Myself EKG shows normal: sinus rhythm Rate: tachycardia - EKG Data When compared to previous EKG: there is no significant change - Impressions ITS Impressions Chest X-Ray 05/19/18 12:17 IMPRESSION: Moderate right pleural effusion. Underlying opacity may represent atelectasis with pneumonia not excluded. D/ / 05/19/2018 13:06:11 Josiah Berrios MD / mabel Interpreting Provider: Josiah Berrios MD - Assessment and Plan (1) Chest pain Current Visit: Yes Status: Acute Assessment and plan: Patient with central chest pain. Associated with heartburn and nausea and vomiting. Most likely related to GERD. However given her significant cardiac history, we will need to rule out ACS. Trend troponins. Monitor with telemetry. She did have associated left arm pain. If troponins to go up, we will consult cardiology for further evaluation. Patient did have a 2-D echocardiogram done yesterday which showed an EF of 30-35% with no other significant changes compared to her prior echo. Qualifiers: Chest pain type: other chest pain Qualified Code(s): R07.89 - Other chest pain; R07.8 - Other chest pain (2) CAD (coronary artery disease) Current Visit: Yes Status: Chronic Assessment and plan: Patient presenting with chest pain and has underlying significant coronary artery disease with 7 stents in the past. Currently on aspirin and Prinivil. We will continue these medications along with her beta blanche. Patient is also on entresto. Qualifiers: Coronary Disease-Associated Artery/Lesion type: [place] artery [place] vs. transplanted heart: [place] heart Associated angina: without angina Qualified Code(s): I25.10 - Atherosclerotic heart disease of [place] coronary artery without angina pectoris (3) CKD (chronic kidney disease), stage III Current Visit: Yes Status: Chronic Assessment and plan: Creatinine slightly elevated compared to her baseline. Likely due to diuresis. We will continue to monitor renal function closely. (4) Congestive heart failure Current Visit: Yes Status: Chronic Assessment and plan: Patient with history of ischemic cardiomyopathy and low ejection fraction. Will continue home medications. Does not appear to have acute congestive heart fail ure at this time. Euvolemic. Her BNP is actually better compared to her last visit here. Qualifiers: Heart failure type: combined systolic and diastolic Heart failure chronicity: chronic Qualified Code(s): I50.42 - Chronic combined systolic (congestive) and diastolic (congestive) heart failure (5) Diabetes mellitus, type II Current Visit: Yes Status: Chronic Assessment and plan: Monitor blood sugars. Sliding scale insulin. Qualifiers: Diabetes mellitus fci insulin use: without fci use Diabetes mellitus complication status: with hypoglycemia Diabetes mellitus complication detail: without coma Qualified Code(s): E11.649 - Type 2 diabetes mellitus with hypoglycemia without coma (6) DVT prophylaxis Current Visit: Yes Status: Acute Assessment and plan: With subcutaneous heparin (7) Elevated troponin Current Visit: Yes Status: Acute Assessment and plan: Mild elevation in troponin. Patient has chronic troponin elevation. We will trend troponins at this time. If they become further elevated, will consult cardiology (8) GERD (gastroesophageal reflux disease) Current Visit: Yes Status: Acute Assessment and plan: Patient does have a history of GERD and she does describe heartburn with her current episode today. Will continue PPI. Qualifiers: Esophagitis presence: without esophagitis Qualified Code(s): K21.9 - Gastro-esophageal reflux disease without esophagitis - Time Spent With Patient Total time spent is greater than 50% in coordination of care (as documented) at patient's floor/unit and/or counseling patient:
[2018-05-19] MEDS ORDERED: Isosorbide MONOnitrate (24 HR) 30 MG TAB.ER.24H PO PRN (17:13)
[2018-05-19] MEDS ORDERED: Mag Hydrox/Al Hydrox/Simeth 30 ML UDC PO PRN (17:52)
[2018-05-19] MEDS: SACUBITRIL/VALSARTAN 24/26 MG TABLET PO SCH (20:15)
[2018-05-19] MEDS: *HR* Heparin 5,000 UNIT/ML VIAL SQ SCH (20:15)
[2018-05-19] MEDS: *HR* Ticagrelor 90 MG TABLET PO SCH (20:15)
[2018-05-19] MEDS ORDERED: Heparin 25,000 UNIT/250 ML D5W 25,000 UNIT/250 ML IV.SOLN IVC SCH (23:45)
[2018-05-19] MEDS ORDERED: *HR* Heparin 5,000 UNIT/ML VIAL IVP PRN ×2 (23:50)
--- NOTE | 2018-05-20 00:02 | Event Note ---
Date of Encounter: 05/19/18 Time of Encounter: 21:03 Notified by nurse of troponin increase from 0.06 to 0.62, no complaints of chest pain. Discussed with patient at bedside, denies any previous history of bleeding or contraindications to heparin. Chart review shows chronic anemia, 11.1 is current hemoglobin. Patient agreeable to starting heparin drip after discussing risks/benefits. Repeat EKG, troponins, and cardiology consult ordered. Discussed with Dr Figueroa.
[2018-05-20 00:25] LABS: Hematocrit 31.2 % (35.3-44.9); Hemoglobin 9.6 g/dL (11.5-15.4); Mean Corpuscular HGB Conc 30.8 g/dL (31.6-35.5); Mean Corpuscular Hemoglobin 29.5 pg (28.0-33.3); Mean Platelet Volume 10.1 fL (9.4-12.4); Platelet Count 488 K/mcL (140-400); Red Blood Count 3.25 M/mcL (3.82-4.97); Red Cell Distribution Width 15.5 % (11.5-14.5)
[2018-05-20 00:33] LABS: Heparin anti-factor XA UFH 0.12 IU/mL (0.30-0.70); INR 1.1; Prothrombin Time 12.6 Seconds (9.4-12.1)
[2018-05-20 03:09] LABS: Basophils # 0.1 K/mcL (0.0-0.2); Basophils % 0.7 %; Eosinophils # 0.3 K/mcL (0.0-0.6); Eosinophils % 3.5 %; Hematocrit 30.6 % (35.3-44.9); Hemoglobin 9.5 g/dL (11.5-15.4); Immature Granulocytes % 0.3 % (0-4); Lymphocytes # 2.2 K/mcL (0.6-4.6); Mean Corpuscular Hemoglobin 29.8 pg (28.0-33.3); Mean Corpuscular Volume 95.9 fL (83.0-100.0); Mean Platelet Volume 10.2 fL (9.4-12.4); Monocytes # 0.7 K/mcL (0.0-1.3); Monocytes % 9.6 %; Neutrophils # 3.9 K/mcL (1.6-8.9); Platelet Count 464 K/mcL (140-400); Red Blood Count 3.19 M/mcL (3.82-4.97); Red Cell Distribution Width 15.5 % (11.5-14.5); Segmented Neutrophils % 54.9 %
[2018-05-20 03:27] LABS: Calcium 8.9 mg/dL (8.6-10.3); Potassium 4.4 mEq/L (3.5-5.1)
[2018-05-20] MEDS: *HR* Heparin 5,000 UNIT/ML VIAL SQ SCH (05:50)
[2018-05-20] MEDS ORDERED: D5% in Water 1,000 ML IVC PRN (08:29)
[2018-05-20] MEDS ORDERED: Dextrose Gel 15 GM/37.5 ML TUBE PO PRN ×2 (08:29)
[2018-05-20] MEDS ORDERED: *HR* Dextrose 50 % in Water (Syg) 50 ML SYRINGE IVP PRN (08:29)
[2018-05-20] MEDS ORDERED: Ringers Solution, Lactated 1,000 ML IVC SCH (08:30)
[2018-05-20] MEDS ORDERED: Aspirin Enteric Coated 81 MG Tablet PO SCH (09:00)
[2018-05-20] MEDS: SACUBITRIL/VALSARTAN 24/26 MG TABLET PO SCH (09:58)
[2018-05-20] MEDS: *HR* Ticagrelor 90 MG TABLET PO SCH (09:58)
--- NOTE | 2018-05-20 10:58 | Electrocardiograph Report ---
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
--- NOTE | 2018-05-20 11:31 | Cardiology Consult Note ---
Date of Encounter: 05/20/18 Time of Encounter: 12:00 Assessment and Plan (1) NSTEMI (non-ST elevated myocardial infarction) Current Visit: Yes Status: Acute PT presents with chest pain consistent with previous anginal equivalent, elevating troponin, now pain free on heparin drip, medical tx. Discussed options, recommendation for LHC/poss, reconsider CABG if restenosis in CX, progression of LAD or RCA disease. Pt has been turned down for consider of CABG at [facility] due to comorbidities, recommend transfer to [facility] for LHC/poss, reevalution multiple vessel PCI vs CABG. Risks and benefits discussed, pt agrees to proceed. (2) CAD (coronary artery disease) Current Visit: Yes Status: Acute Severe triple vessel dx, previous PCI with DWAYNE LAD, Cx, and RCA, known residual instent restensosis RCA, severe stenosis LAD, following PCI CX 12/15 per reports, do not have films available for review. Qualifiers: Coronary Disease-Associated Artery/Lesion type: [place] artery [place] vs. transplanted heart: [place] heart Associated angina: with unstable angina Qualified Code(s): I25.110 - Atherosclerotic heart disease of [place] coronary artery with unstable angina pectoris (3) Mitral regurgitation Current Visit: Yes Status: Acute Moderate to severe MR on previous echocardiograms, most recent 12/15, will need repeat echo for consideration of revascularization strategy. Qualifiers: Cardiac valve disease etiology: nonrheumatic Qualified Code(s): I34.0 - Nonrheumatic mitral (valve) insufficiency (4) Hypertension Current Visit: No Status: Chronic Benign essential hypertension controlled on current meds, continue same. Qualifiers: Hypertension type: essential hypertension Qualified Code(s): I10 - Essential (primary) hypertension Discussion w patient/family: The assessment and plan as outlined above was discussed with the patient and/or family members who expressed understanding and agreement. All questions were answered. Thank you for involving us in the care of your patient. Please call with any questions. History of Present Illness Consult date: 05/20/18 Requesting physician: Javier Melton Consult reason: Chest pain Chief complaint: Chest pain. History of present illness: Ms. Valverde is a 72 year old female who presented for evaluation of chest pain, started at rest approx 10 AM 05/19/18, burning type pain, associated with nausea and emesis x 2, mild shortness of breath, no diaphoresis. Pt reports chest pain was 4 - 5/10, lasted approximately two hours , resolved with medical tx in ER, had not reoccurred. Pt reports presenting chest pain similar to previous anginal pain associated with ACS prior to previous multiple PCIs, most recent stent in Cx at [facility], residual RCA and LAD disease. PT reports chest pain has resolved since starting IV heparin. Past Med Surg Social Fam HX - Past Medical History Medical history: cardiomyopathy, COPD, coronary artery disease, diabetes, hyperlipidemia, hypertension, myocardial infarction, peripheral artery disease, renal disease Additional medical history: gout Psychiatric history: anxiety - Past Surgical History Surgical History: angioplasty/stent Additional surgical history: heart stents x7, tubal - Social History Smoking Status: Never smoker Smokeless Tobacco Status: No Alcohol use: none Drug use: none - Family History Maternal Living Status: Paternal Living Status: Mother Age at : 62 Cause of : heart Hx Family Cardiac Disorders: Yes ([place]) Hx Family Endocrine Disorder: Yes (DM) Father Age at : 82 Cause of : heart Hx Family Cardiac Disorders: Yes ([place]) Medications and Allergies Insulin Glargine,Hum.rec.anlog [Lantus Solostar] 5 - 10 unit SQ HS PRN 08/03/17 [History] Oxycodone HCl/Acetaminophen [Percocet 10-325 mg Tablet] 1 tab PO TID PRN 08/03/17 [History] Ticagrelor [Brilinta] 90 mg PO BID 08/03/17 [History] Potassium Chloride [Klor-Con 10] 10 meq PO DAILY 12/17/17 [History] Allopurinol [Zyloprim 100 MG] 100 mg PO DAILY PRN 02/03/18 [History] Atorvastatin Calcium [Lipitor] 80 mg PO HS 02/03/18 [History] Carvedilol 3.125 mg PO BID 02/03/18 [History] Isosorbide MONOnitrate [Isosorbide Mononitrate ER] 30 mg PO DAILY PRN 02/03/18 [History] Pantoprazole Sodium 40 mg PO BID 02/03/18 [History] Aspirin [Lo-Dose Aspirin EC] 81 mg PO DAILY 05/05/18 [History] Cyanocobalamin (B-12) [Vitamin B12] 1,000 mcg IM WE 05/05/18 [History] Folic Acid 0.4 mg PO DAILY 05/05/18 [History] Sacubitril/Valsartan 24/26 mg [Entresto 24 mg-26 mg Tablet] 1 tab PO BID 05/05/18 [History] Furosemide [Lasix] 40 mg PO BID 05/19/18 [History] Insulin ASPART [Novolog Flexpen] 5 unit SQ TID 05/19/18 [History] Allergy/AdvReac Type Severity Reaction Status Date / Time codeine Allergy Rash Verified 05/05/18 08:39 gabapentin Allergy Rash Verified 05/05/18 08:39 levothyroxine sodium AdvReac "THROAT Verified 05/05/18 08:39 [From Synthroid] SORE" All Systems Review: The remainder of the systems were reviewed and are negative - Constitutional Constitutional: weight loss - Cardiovascular Cardiovascular: as per HPI, chest pain at rest, palpitations - Respiratory Respiratory: dyspnea (mild dyspnea on exetion) - Gastrointestinal Gastrointestinal: nausea - Psychiatric Psychiatric: anxiety Physical Examination Vital Signs, Last 4 Hours Temp Pulse Resp BP Pulse Ox 05/20/18 10:35 97.9 F 79 16 108/62 100 05/20/18 09:51 99 General: Conversant, No Apparent Distress HEENT: Atraumatic, Normocephaly, Mucus Membranes Moist Neck: No JVD, Normal carotid pulses Cardiac: Reg Rate and Rhythm, Normal S1 and S2, Other (2/6 ISACC left sixth interspace mid clavicular line) Lungs: No Wheeze, Rales, Rhonchi, Other (Decreased breath sounds bilat, scattered rhonchi, clear with cough. ) Neuro: Alert and responsive, No focal deficits noted Abdomen: Soft, Non-Tender (Mild mid epigastric tenderness, no rebound. ) Skin: No rashes noted on visualized skin Musculoskeletal: No Chest Wall Tenderness Extremities: No Edema, Normal Pulses Results 05/20/18 02:33 05/20/18 02:33 Lab Results 05/19/18 05/19/18 05/19/18 12:57 12:57 12:57 WBC 7.8 Hgb 11.1 L Hct 35.5 Plt Count 570 H INR Sodium 137 Potassium 3.9 Chloride 97 L Carbon Dioxide 27 BUN 20 Creatinine 1.51 H Glucose 186 H Calcium 9.5 Total Bilirubin 0.6 AST 16 ALT 22 Alkaline Phosphatase 121 H Troponin I 0.06 H* B-Natriuretic Peptide 1296 H Lipase 16 05/19/18 05/20/18 05/20/18 20:04 00:03 00:03 WBC 6.8 Hgb 9.6 L D Hct 31.2 L Plt Count 488 H INR 1.1 Sodium Potassium Chloride Carbon Dioxide BUN Creatinine Glucose Calcium Total Bilirubin AST ALT Alkaline Phosphatase Troponin I 0.62 H* B-Natriuretic Peptide Lipase 05/20/18 05/20/18 05/20/18 02:33 02:33 02:33 WBC 7.1 Hgb 9.5 L Hct 30.6 L Plt Count 464 H INR Sodium 137 Potassium 4.4 Chloride 98 Carbon Dioxide 29 BUN 22 Creatinine 1.78 H Glucose 97 Calcium 8.9 Total Bilirubin AST ALT Alkaline Phosphatase Troponin I 0.44 H* B-Natriuretic Peptide Lipase 05/20/18 08:12 WBC Hgb Hct Plt Count INR Sodium Potassium Chloride Carbon Dioxide BUN Creatinine Glucose Calcium Total Bilirubin AST ALT Alkaline Phosphatase Troponin I 0.40 H* B-Natriuretic Peptide Lipase Consult Discharge Plan - Plan Referrals: Justin Burroughs MD [Primary Care Provider] -
[2018-05-20] MEDS: Insulin LISPRO 300 UNITS/3 ML VIAL SQ SCH ×2 (11:49→16:37)
--- NOTE | 2018-05-20 14:11 | Discharge Summary ---
- NOTES TO OUTPATIENT PROVIDER Notes to Outpatient Provider: Patient with a history of coronary artery disease, cardiomyopathy, hypertension and hyperlipidemia was hospitalized here with complaints of chest pain that was central in location along with associated left arm pain. She was observed in the hospital overnight and her troponins were trending up and so cardiology was consulted. Heparin drip was attempted to be started but patient developed severe bleeding with even the heparin injection that she received for DVT prophylaxis. Her hemoglobin also decreased from 11 to 9.6. As such this was held. Cardiology evaluated patient and given her prior history of coronary artery disease requiring higher risk PCI at [facility], they recommended that she be transferred back to [facility] for further care. Patient is currently agreeable to this plan. Date of Encounter: 05/20/18 Time of Encounter: 14:09 - Discharge Diagnosis (1) NSTEMI (non-ST elevated myocardial infarction) Priority: Primary Status: Acute (2) Chest pain Priority: Secondary Status: Acute Qualifiers: Chest pain type: other chest pain Qualified Code(s): R07.89 - Other chest pain; R07.8 - Other chest pain (3) CAD (coronary artery disease) Priority: Secondary Status: Acute Qualifiers: Coronary Disease-Associated Artery/Lesion type: [place] artery [place] vs. transplanted heart: [place] heart Associated angina: with unstable angina Qualified Code(s): I25.110 - Atherosclerotic heart disease of [place] coronary artery with unstable angina pectoris (4) CKD (chronic kidney disease), stage III Priority: Secondary Status: Chronic (5) Congestive heart failure Priority: Secondary Status: Chronic Qualifiers: Heart failure type: combined systolic and diastolic Heart failure chronicity: chronic Qualified Code(s): I50.42 - Chronic combined systolic (congestive) and diastolic (congestive) heart failure (6) Diabetes mellitus, type II Priority: Secondary Status: Chronic Qualifiers: 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 Valverde is a 72 year old female Patient with a history of coronary artery disease, cardiomyopathy, hypertension and hyperlipidemia was hospitalized here with complaints of chest pain that was central in location along with associated left arm pain. She was observed in the hospital overnight and her troponins were trending up and so cardiology was consulted. Heparin drip was attempted to be started but patient developed severe bleeding with even the heparin injection that she received for DVT prophylaxis. Her hemoglobin also decreased from 11 to 9.6. As such this was held. Cardiology evaluated patient and given her prior history of coronary artery disease requiring higher risk PCI at [facility], they recommended that she be transferred back to [facility] for further care. Patient is reluctant but agreeable to this plan. She states that she has been previously told that there is also much more that she could be offered. Explained to her that this was a principal technical architect's recommendation and given that she is continued to have episodes of non-ST elevation NM despite being on appropriate medications, she would need to discuss this with her principal technical architect at [facility] and possibly enroll in hospice if nothing else can be offered. Placed a call to [facility] transfer center and they will call us to bed when it is available for her. 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 consultant - Time Spent with Patient Total time spent providing and/or coordinating discharge services: Time spent: Less than 30 minutes, Greater than 30 minutes (35 min) - Discharge Medications Prescriptions: No Action Atorvastatin Calcium [Lipitor] 80 mg PO HS Pantoprazole Sodium 40 mg PO BID Isosorbide MONOnitrate [Isosorbide Mononitrate ER] 30 mg PO DAILY PRN PRN Reason: Chest Pain Carvedilol 3.125 mg PO BID Allopurinol [Zyloprim 100 MG] 100 mg PO DAILY PRN PRN Reason: GOUT Home Medications: Allopurinol [Zyloprim 100 MG] 100 mg PO DAILY PRN 02/03/18 [History] Atorvastatin Calcium [Lipitor] 80 mg PO HS 02/03/18 [History] Carvedilol 3.125 mg PO BID 02/03/18 [History] Isosorbide MONOnitrate [Isosorbide Mononitrate ER] 30 mg PO DAILY PRN 02/03/18 [History] Pantoprazole Sodium 40 mg PO BID 02/03/18 [History] Allergies/Adverse Reactions: Allergy/AdvReac Type Severity Reaction Status Date / Time codeine Allergy Rash Verified 05/05/18 08:39 gabapentin Allergy Rash Verified 05/05/18 08:39 levothyroxine sodium AdvReac "THROAT Verified 05/05/18 08:39 [From Synthroid] SORE" Date of admission: 05/19/18 16:49 Primary care physician: Justin Burroughs MD Consults: 05/19/18 23:51 Consult to Cardiology [CONS] Routine Comment: Consulting Provider: Cardiology [facility] Reason for Consult: Troponin elevation from 0.06 to 0.62 with chest pain on admission that is currently resolved. Follows with [facility]. Call Completed: No Discharging clinician: Maik Mares Anticipated date of discharge: 05/20/18 - Constitutional Vitals: Temp Pulse Resp BP Pulse Ox 97.9 F 79 16 108/62 100 05/20/18 10:35 05/20/18 10:35 05/20/18 10:35 05/20/18 10:35 05/20/18 10:35 General appearance: Present: cooperative, A&O X 3, answers questions appropriately Exam: General: Patient is alert, mild distress, oriented x 3 ENT: Mucous membranes moist Respiratory: Mild wheezing bilaterally Cardiovascular: Regular rate and rhythm. s1 and s2 normal No clicks, rubs, gallops, or murmurs. No pedal edema Abdomen: Abdomen is soft, nontender. Bowel sounds are present Musculoskeletal: Spontaneously moving all extremities Skin: warm, dry, intact. Neuro: Alert oriented x 3 normal cranial nerves, no focal deficits - Patient Status Disposition: Transfer Other Condition: Fair Functional capacity at discharge: bed bound - Discharge Instructions Instructions: Chest Pain (DC) Follow Up With: Justin Burroughs MD [Primary Care Provider] - - Diet and Activity Diet: diabetic diet, low fat, low cholesterol, low salt diet
[2018-05-20 15:53] VITALS: BP 136/76
[2018-05-20] MEDS ORDERED: Insulin LISPRO 300 UNITS/3 ML VIAL SQ SCH (21:00)
== END 2018-05-20 18:46 | DRG 281 ==
LOC: 2ANU 12:04 → EMEROOARM 12:04 → 2ANU 17:42
PROVIDERS: ADMIT Internal Medicine; ATTEND Internal Medicine

== ENCOUNTER 2019-01-30 02:46 | Inpatient (IN) ==
[2019-01-30 03:23] LABS: Basophils % 0.4 %; Eosinophils # 0.3 K/mcL (0.0-0.6); Eosinophils % 2.6 %; Hemoglobin 11.1 g/dL (11.5-15.4); Immature Granulocytes % 0.6 % (0-4); Lymphocytes # 4.5 K/mcL (0.6-4.6); Lymphocytes % 44.2 %; Mean Corpuscular HGB Conc 33.6 g/dL (31.6-35.5); Mean Corpuscular Hemoglobin 32.9 pg (28.0-33.3); Mean Corpuscular Volume 97.9 fL (83.0-100.0); Monocytes # 0.8 K/mcL (0.0-1.3); Monocytes % 7.6 %; Neutrophils # 4.6 K/mcL (1.6-8.9); Platelet Count 246 K/mcL (140-400); Red Blood Count 3.37 M/mcL (3.82-4.97); Red Cell Distribution Width 12.5 % (11.5-14.5); Segmented Neutrophils % 44.6 %; White Blood Count 10.2 K/mcL (4.3-11.1)
[2019-01-30 03:24] LABS: INR 1.5; Prothrombin Time 16.8 Seconds (9.4-12.1)
[2019-01-30 03:27] LABS: Activated Partial Thrombo Time 37.4 Seconds (26.0-36.0)
[2019-01-30 03:43] LABS: BUN/Creatinine Ratio 31 (6-26); Blood Urea Nitrogen 60 mg/dL (8-23); Calcium 9.5 mg/dL (8.6-10.3); Carbon Dioxide 25 mEq/L (23-29); Chloride 96 mEq/L (98-107); Glucose 112 mg/dL (70-105); Osmolality,Calculated 300 (280-300); Potassium 3.3 mEq/L (3.5-5.1); Sodium 136 mEq/L (136-145); Troponin I < 0.03 ng/mL (< 0.04); eGFR For African Americans 31 (> 60); eGFR For Non-African Americans 25 (> 60)
[2019-01-30 04:03] LABS: Bilirubin,Urine Negative (Negative); Blood,Urine Negative (Negative); Clarity,Urine Clear (Clear); Color,Urine Yellow (Yellow); Glucose,Urine (UA) Normal (Normal); Ketones,Urine Negative (Negative); Leukocyte Esterase,Urine Negative (Negative); Nitrite,Urine Negative (Negative); PH,Urine 5.5 pH Units (5.0-8.0); Protein,Urine Negative (Neg-Trace); Specific Gravity,Urine 1.009 (1.010-1.025); Urobilinogen,Urine Normal (Normal)
[2019-01-30] MEDS ORDERED: Potassium Effervescent 25 MEQ TABLET.EFF PO ONE (04:03)
[2019-01-30 04:31] LABS: Thyroid Stimulating Hormone 8.277 mcIU/mL (0.340-5.600)
[2019-01-30] MEDS ORDERED: Aspirin 81 MG TAB.CHEW PO STA (04:38)
[2019-01-30] MEDS ORDERED: Naloxone 0.4 MG/ML INJ IVP PRN (06:37)
[2019-01-30] MEDS ORDERED: D5% in Water 1,000 ML IVC PRN (06:39)
[2019-01-30] MEDS ORDERED: Dextrose Gel 15 GM/37.5 ML TUBE PO PRN ×2 (06:39)
[2019-01-30] MEDS ORDERED: *HR* Dextrose 50 % in Water (Syg) 50 ML SYRINGE IVP PRN (06:39)
[2019-01-30] MEDS ORDERED: 0.9 % Sodium Chloride 1,000 ML ONE (13:44)
[2019-01-30] MEDS: Apixaban 2.5 MG TABLET PO SCH ×2 (13:46→21:37)
[2019-01-30] MEDS: 0.9 % Sodium Chloride 500 ML IVC SCH ×2 (13:47→23:30)
[2019-01-30] MEDS: Insulin LISPRO 300 UNITS/3 ML VIAL SQ SCH ×2 (13:47→18:12)
[2019-01-30] MEDS ORDERED: Isosorbide MONOnitrate (24 HR) 30 MG TAB.ER.24H PO PRN (14:41)
[2019-01-30] MEDS ORDERED: Perflutren Lipid Microsphere 1.3 ML in 0.9 % Sodium Chloride 8.7 ML IVP ONE (15:54)
[2019-01-30] MEDS: Sacubitril/Valsartan 97/103 MG 1 TAB TABLET PO SCH (21:37)
[2019-01-30 23:12] LABS: Amphetamine Screen,Urine Negative ng/mL (Cutoff=1000); Barbiturate Screen,Urine Negative ng/mL (Cutoff=200); Benzodiazepines Screen,Urine Negative ng/mL (Cutoff=200); Cannabinoid Screen,Urine Negative ng/mL (Cutoff = 50); Cocaine Screen,Urine Negative ng/mL (Cutoff= 300); Opiate Screen,Urine Negative ng/mL (Cutoff=300); Phencyclidine Screen,Urine Negative ng/mL (Cutoff=25)
[2019-01-30] MEDS ORDERED: 0.9 % Sodium Chloride 500 ML ONE (23:27)
[2019-01-31] MEDS: Insulin LISPRO 300 UNITS/3 ML VIAL SQ SCH ×3 (00:23→12:27)
[2019-01-31] MEDS: Apixaban 2.5 MG TABLET PO SCH (08:19)
[2019-01-31] MEDS: Sacubitril/Valsartan 97/103 MG 1 TAB TABLET PO SCH (08:19)
[2019-01-31] MEDS ORDERED: Metoprolol XL (24 HR) Succ 25 MG TAB.ER.24H PO SCH (09:00)
[2019-01-31 09:27] LABS: Hematocrit 32.7 % (35.3-44.9); Hemoglobin 10.9 g/dL (11.5-15.4); Mean Corpuscular HGB Conc 33.3 g/dL (31.6-35.5); Mean Corpuscular Hemoglobin 32.6 pg (28.0-33.3); Mean Corpuscular Volume 97.9 fL (83.0-100.0); Mean Platelet Volume 11.1 fL (9.4-12.4); Platelet Count 217 K/mcL (140-400); Red Blood Count 3.34 M/mcL (3.82-4.97); Red Cell Distribution Width 12.4 % (11.5-14.5); White Blood Count 7.1 K/mcL (4.3-11.1)
[2019-01-31 10:01] LABS: Calcium 9.2 mg/dL (8.6-10.3); Potassium 4.6 mEq/L (3.5-5.1)
[2019-01-31 15:47] VITALS: BP 151/79
== END 2019-01-31 18:04 | disposition home or self-care (01) | DRG 308 ==
LOC: CDU 02:46 → EMEROOARM 02:46 → SUATTDRO 05:05 → CDU 06:30 → 3BNU 22:35
PROVIDERS: ADMIT Internal Medicine; ATTEND Internal Medicine